=== PATIENT | female | born 1980 | race Caucasian/White ===

== ENCOUNTER 2016-09-30 20:50 | Inpatient (IN) | payer BC ==
[~2016-09-30] VITALS: Ht 157.5 cm; Wt 57.3 kg
[~2016-09-30 20:50] MED LIST: GLIP10TA10 PO; PROM25TA16 PO; PRT/40 PO; TRAM-10 PO
[2016-09-30] MEDS ORDERED: NAPR1TAB9 PO (21:33)
[2016-09-30] MEDS ORDERED: ONDANSETRON INJ 2 MG/ML 2 ML VIAL IV STA (22:04)
[2016-09-30] MEDS ORDERED: HYDROmorphone INJ 1 MG/ML SYR IV STA ×2 (22:04→23:35)
[2016-09-30] MEDS ORDERED: SODIUM CHLORIDE 0.9% 1000ML 1,000 ML IV STA (22:04)
[2016-09-30 22:34] LABS: BASO % 0.2 %; BASO ABS # 0.03 K/uL (0-0.2); COMPLETE YES; IG% 0.2 %; LYMPH % 14.9 %; LYMPH ABS # 2.48 K/uL (1.2-3.4); MEAN CELL VOLUME 93.9 fL (80-100); MEAN CORPUSCULAR HGB CONC 37.3 g/dl (32-36); MEAN PLATELET VOLUME 10.2 fL (7.4-10.4); MONO % 6.8 %; NEUT % 76.9 %; PLATELET COUNT 268 K/uL (130-400); RED BLOOD COUNT 5.11 M/uL (4.2-5.4); WHITE BLOOD COUNT 16.67 K/uL (4.8-10.8)
[2016-09-30 22:46] LABS: URINE APPEARANCE CLOUDY (CLEAR); URINE BILIRUBIN NEG (NEG); URINE COLOR YELLOW; URINE EPITHELIAL CELL AUTO >30 /lpf (0-5); URINE NITRITE NEG (NEG); URINE PH 6.5 (4.5-7.5); URINE SPECIFIC GRAVITY 1.044 (1.000-1.030); UROBILINOGEN NEG (NEG); ZZUR CULT IF INDIC CLEAN CATCH YES
[2016-09-30 22:48] LABS: MANUAL MICROSCOPIC REQUIRED? NO; REVIEW REQ? NO
[2016-09-30 22:52] LABS: BUN/CREATININE RATIO 27.5 (10-20); CALCIUM 10.3 mg/dl (8.5-10.1); CREATININE 0.6 mg/dl (0.60-1.20)
[2016-09-30] MEDS ORDERED: PROCHLORPERAZINE INJ 5 MG in SYRINGE 4 ML IV PRN (23:45)
[2016-09-30] MEDS ORDERED: ZOLPIDEM TARTRATE 5 MG TAB PO PRN ×2 (23:45)
[2016-09-30] MEDS ORDERED: HYDROmorphone INJ 0.5 MG/0.5 ML SYR IV PRN ×2 (23:45)
[2016-09-30] MEDS: ENOXAPARIN 40 MG/0.4 ML SYR SQ SCH (23:45)
--- NOTE | 2016-10-01 00:43 | History and Physical ---
History & Physical Date & Time of Service: Oct 01, 2016 at 00:40 Chief Complaint: Acute Pancreatitis Primary Care Physician: Aram Eilse M.D. History of Present Illness Source: patient Rosario is a 36 yo F with history of recurrent / chronic pancreatitis who presents with 3 days of epigastric pain and intractable nausea and vomiting. She reports she has had about 5-6 episodes over the last 2-3 years, and had her gallbladder removed, lost about 100lbs through diet and exercise, and does not drink alcohol. Essentially no cause has been found. She usually tolerates staying at home with oxycodone and Tylenol, but was unable to keep anything down, so came into the ED. She still has persistent pain despite dilaudid in the ED. Past Medical/Surgical History Medical Problems: (1) Abdominal pain Status: Resolved (2) Abscess of groin, left Status: Resolved (3) Acute abdominal pain Status: Resolved (4) Acute abdominal pain Status: Resolved (5) Acute diverticulitis Status: Resolved (6) Acute pancreatitis Status: Resolved (7) Attn Defic Nonhyperact Status: Chronic (8) Bronchitis Status: Resolved (9) Cellulitis Status: Resolved (10) Dehydration Status: Resolved (11) Dehydration Status: Resolved (12) Diabetes Status: Chronic (13) Left lower quadrant pain Status: Resolved (14) MRSA Status: Chronic (15) Nausea, vomiting and diarrhea Status: Resolved (16) Nausea, vomiting, and diarrhea Status: Resolved (17) Pancreatitis Status: Resolved (18) Pancreatitis Status: Resolved (19) Pancreatitis Status: Resolved (20) Polycystic Ovaries Status: Chronic (21) RUQ abdominal pain Status: Resolved (22) Type 2 diabetes mellitus with hyperglycemia Status: Resolved (23) Type 2 diabetes mellitus with hyperglycemia Status: Resolved (24) Type 2 diabetes mellitus with hyperglycemia Status: Resolved Surgical Problems: (1) Cyst removal Status: Resolved (2) Hx laparoscopic cholecystectomy Status: Resolved (3) Tonsillectomy Status: Resolved Family History Diabetes mellitus Heart disease Social History Smoking Status: Current Every Day Smoker Drug Use: none Marital Status: Housing status: lives with family Occupational Status: employed Multi-Drug Resistant Organisms History of MDRO: Yes Type of MDRO: MRSA Allergies Coded Allergies: Penicillins (Verified Allergy, Severe, ANAPHYLAXIS, 05/01/16) Clindamycin (Verified Allergy, Mild, RASH, 05/01/16) Methylphenidate (Verified Adverse Reaction, Mild, NAUSEA, 05/01/16) Home Medications Scheduled Diphenhydramine Hcl (Benadryl Allergy), 75 MG PO HS Glipizide (Glipizide), 10 MG PO BID Metformin Hcl Er (Glucophage Er), 1,000 MG PO BID Pancrelipase (Lipase-Protease- (Creon 05978), 36,000 UNITS PO QID Scheduled PRN Naproxen (Aleve), 220 MG PO Q12 PRN for Pain Ondansetron (Ondansetron HCl), 8 MG PO TID PRN for Nausea or Vomiting Tramadol HCl (Tramadol HCl), 50-100 MG PO Q4H PRN for Pain Review of Systems See HPI for pertinent positives & negatives. A total of 10 systems reviewed and were otherwise negative. Physical Exam Vital Signs Date Time Temp Pulse Resp B/P Pulse Ox O2 Delivery O2 Flow Rate FiO2 09/30/16 23:50 78 18 140/95 98 Room Air 09/30/16 22:28 82 20 157/93 96 Room Air 09/30/16 21:00 37.2 95 18 120/84 96 Room Air General Appearance: WD/WN, + moderate distress, + thin Head: normocephalic, atraumatic Eyes: PERRL ENT: hearing grossly normal Neck: supple, no JVD Respiratory/Chest: lungs clear, normal breath sounds, no respiratory distress Cardiovascular: regular rate, rhythm, no murmur, normal peripheral pulses Abdomen/GI: soft, + tenderness (epigastrium), + guarding Back: no CVA tenderness, no muscle spasm Extremities/Musculoskelatal: no calf tenderness, no pedal edema Neurologic/Psych: alert, normal mood/affect, oriented x 3 Skin: no rash Diagnostics Laboratory Results Results Past 24 Hours Test 09/30/16 22:00 09/30/16 22:15 Range/Units Urine Color YELLOW Urine Appearance CLOUDY CLEAR Urine pH 6.5 4.5-7.5 Urine Specific [place] 1.044 1.000-1.030 Urine Protein TRACE NEG Urine Glucose (UA) 3+ NEG Urine Ketones 1+ NEG Urine Occult Blood NEG NEG Urine Nitrite NEG NEG Urine Bilirubin NEG NEG Urine Urobilinogen NEG NEG Urine Leukocyte Esterase NEG NEG Urine WBC (Auto) 10-30 0-5 /hpf Urine RBC (Auto) 0-4 0-4 /hpf Urine Hyaline Casts (Auto) 1-5 0-5 /lpf Urine Epithelial Cells (Auto) >30 0-5 /lpf Urine Bacteria (Auto) 3+ NEG Urine Test NEG NEG White Blood Count 16.67 4.8-10.8 K/uL Red Blood Count 5.11 4.2-5.4 M/uL Hemoglobin 17.9 12.0-16.0 g/dL Hematocrit 48.0 37-47 % Mean Corpuscular Volume 93.9 80-100 fL Mean Corpuscular Hemoglobin 35.0 25-34 pg Mean Corpuscular Hemoglobin Concent 37.3 32-36 g/dl Platelet Count 268 130-400 K/uL Mean Platelet Volume 10.2 7.4-10.4 fL Neutrophils (%) (Auto) 76.9 % Lymphocytes (%) (Auto) 14.9 % Monocytes (%) (Auto) 6.8 % Eosinophils (%) (Auto) 1.0 % Basophils (%) (Auto) 0.2 % Neutrophils # (Auto) 12.82 1.4-6.5 K/uL Lymphocytes # (Auto) 2.48 1.2-3.4 K/uL Monocytes # (Auto) 1.14 0.11-0.59 K/uL Eosinophils # (Auto) 0.16 0-0.5 K/uL Basophils # (Auto) 0.03 0-0.2 K/uL RDW Standard Deviation 41.2 36.4-46.3 fL RDW Coefficient of Variation 12.1 11.5-14.5 % Immature Granulocyte % (Auto) 0.2 % Immature Granulocyte # (Auto) 0.04 0.00-0.02 K/uL Sodium Level 133 136-145 mmol/L Potassium Level 4.0 3.5-5.1 mmol/L Chloride Level 94 98-107 mmol/L Carbon Dioxide Level 29 21-32 mmol/L Anion Gap 10.0 3-11 mmol/L Blood Urea Nitrogen 17 7-18 mg/dl Creatinine 0.60 0.60-1.20 mg/dl Est Creatinine Clear Calc Drug Dose 103.5 ml/min Estimated GFR () 136.9 Estimated GFR (Non- 118.1 BUN/Creatinine Ratio 27.5 10-20 Random Glucose 294 70-99 mg/dl Calcium Level 10.3 8.5-10.1 mg/dl Total Bilirubin 0.8 0.2-1 mg/dl Direct Bilirubin 0.2 0-0.2 mg/dl Aspartate Amino Transf (AST/SGOT) 110 15-37 U/L Alanine Aminotransferase (ALT/SGPT) 116 12-78 U/L Alkaline Phosphatase 214 45-117 U/L Total Protein 8.4 6.4-8.2 gm/dl Albumin 4.5 3.4-5.0 gm/dl Lipase 853 73-393 U/L Microbiology Results 09/30/16 Urine Culture, Received Pending Diagnostic Radiology US RUQ: Pancreas appears mildly atrophic and heterogeneous. This may represent the sequel of chronic pancreatitis. Gallbladder is surgically absent. Common bile measures 5 mm. Liver measures 16 cm in length without evidence of focal lesion. Right kidney measures 12.6 cm without hydronephrosis. Impression Assessment and Plan 36 yo F with acute on chronic pancreatitis - presenting with intractable nausea/ vomiting Pancreatitis - NPO except ice chips - IV fluid hydration - Dilaudid for pain at various levels - GI consult Nausea/vomiting - Zofran - IV fluids Elevated LFTs - Trend - Avoid hepatotoxic meds Level of Care Med/Surg VTE Prophylaxis VTE Risk Assessment Done? Y/N: Yes Risk Level: Low Resident Tracking Resident Involvement: Resident Care Provided Care Provided: [facility] Assessment and Plan Attending Addendum: I have physically seen and examined this patient, have directed their medical care, have supervised the medical residents activities, and agree with the H&P as noted above, with the following changes: The patient is awake, well-developed and adequately nourished, alert and oriented 3, normocephalic and atraumatic, sitting upright in Bed and in no acute distress. HEENT--PERRL, EOMI, mucous membranes and oropharynx dry. Neck--supple, no JVD or bruits, thyroid normal, trachea midline, no adenopathy. Heart--normal S1 and S2, no extra beats, no murmurs, rubs or gallops. Lungs--clear bilaterally but diminished, no respiratory distress, no accessory muscle use. Abdomen--normal bowel sounds and soft, epigastric and back pain, nondistended, no hernias or masses, no organomegaly. Extremities--no cyanosis, clubbing or edema. There are good distal pulses b/l. Dermatologic--normal skin turgor, normal color, warm and dry, no abnormal lymph nodes, no rash. Neurologic--cranial nerves II through XII grossly intact, motor and sensory examination normal. Rheumatologic--normal range of motion, nontender, muscles and joints. Psychiatric--normal affect. Assessment and Plan: Acute on chronic pancreatitis--hydrate with IV fluids. Pain control with Dilaudid IV when necessary, Zofran 4 mg IV every 6 hours when necessary, follow serial CBC with differential, chemistry profile and pancreatic enzymes. Hold Creon 36,000 units by mouth 4 times a day until taking by mouth. She reports having her triglycerides checked recently in the outpatient setting and was told they were okay. We'll consult gastroenterology. Diabetes mellitus--hold glipizide 10 mg by mouth twice a day and metformin ER 1000 mg by mouth twice a day. We'll check a hemoglobin A1c.
[2016-10-01] MEDS: SODIUM CHLORIDE 0.9% 1000ML 1,000 ML IV SCH ×5 (01:45→19:33)
[2016-10-01] MEDS: ONDANSETRON INJ 2 MG/ML 2 ML VIAL IV PRN ×2 (01:45→08:13)
[2016-10-01] MEDS: HYDROmorphone INJ 1 MG/ML SYR IV PRN ×7 (01:46→21:25)
--- NOTE | 2016-10-01 02:08 | EMERGENCY ROOM VISIT NOTE ---
History Report prepared by Azra: Reynaldo Dunham Under the Supervision of: Dr. Isaak Gtz D.O. First contact with patient: 21:48 Chief Complaint: ABDOMINAL PAIN Stated Complaint: ACUTE PANCREATITIS Nursing Triage Summary: pt reports hx of pancreatitis and has had a flare up for 3 days , now unable to keep water down, home meds not helping History of Present Illness The patient is a 36 year old female who presents to the Emergency Room with complaints of persistent abdominal pain beginning three days ago. She describes her pain as "it feels like someone is driving a screw through to my back". She has a history of pancreatitis and feels that his current pain is a flare up of pancreatitis. She states that she has had pancreatitis for about four years. The patient also has a history of diabetes. She has a history of a cholecystectomy. She notes that she has not had any alcohol in a few years. The patient also complains of a cough that is unchanged from baseline. She states that she has had some nausea and vomiting as well. She states that she has not been able to keep any food down. The patient states that she has taken 1 mg of Oxycodone and Aleve between 7 and 8 hours ago. She notes that she has had a yeast infection recently. Source of History: patient Onset: three days ago Position: abdomen Quality: other ("like someone is driving a screw through to my back") Timing: other (persistent) Associated Symptoms: + cough, + nausea, + vomiting Review of Systems See HPI for pertinent positives & negatives. A total of 10 systems reviewed and were otherwise negative. Past Medical & Surgical Medical Problems: (1) Abdominal pain (2) Abscess of groin, left (3) Acute abdominal pain (4) Acute abdominal pain (5) Acute diverticulitis (6) Acute on chronic pancreatitis (7) Acute pancreatitis (8) Attn Defic Nonhyperact (9) Bronchitis (10) Cellulitis (11) Dehydration (12) Dehydration (13) Diabetes (14) Intractable nausea and vomiting (15) Left lower quadrant pain (16) MRSA (17) Nausea, vomiting and diarrhea (18) Nausea, vomiting, and diarrhea (19) Pancreatitis (20) Pancreatitis (21) Pancreatitis (22) Polycystic Ovaries (23) RUQ abdominal pain (24) Type 2 diabetes mellitus with hyperglycemia (25) Type 2 diabetes mellitus with hyperglycemia (26) Type 2 diabetes mellitus with hyperglycemia Surgical Problems: (1) Cyst removal (2) Hx laparoscopic cholecystectomy (3) Tonsillectomy Family History Diabetes mellitus Heart disease Social History Smoking Status: Current Every Day Smoker Alcohol Use: none Drug Use: none Marital Status: Housing Status: lives with family Occupation Status: employed Current/Historical Medications Scheduled Diphenhydramine Hcl (Benadryl Allergy), 75 MG PO HS Glipizide (Glipizide), 10 MG PO BID Metformin Hcl Er (Glucophage Er), 1,000 MG PO BID Pancrelipase (Lipase-Protease- (Creon 21718), 36,000 UNITS PO QID Scheduled PRN Naproxen (Aleve), 220 MG PO Q12 PRN for Pain Ondansetron (Ondansetron HCl), 8 MG PO TID PRN for Nausea or Vomiting Tramadol HCl (Tramadol HCl), 50-100 MG PO Q4H PRN for Pain Allergies Coded Allergies: Penicillins (Verified Allergy, Severe, ANAPHYLAXIS, 05/01/16) Clindamycin (Verified Allergy, Mild, RASH, 05/01/16) Methylphenidate (Verified Adverse Reaction, Mild, NAUSEA, 05/01/16) Physical Exam Vital Signs Date Time Temp Pulse Resp B/P Pulse Ox O2 Delivery O2 Flow Rate FiO2 10/01/16 01:46 68 20 160/87 96 Room Air 09/30/16 23:50 78 18 140/95 98 Room Air 09/30/16 22:28 82 20 157/93 96 Room Air 09/30/16 21:00 37.2 95 18 120/84 96 Room Air Physical Exam GENERAL: Disheveled, mild distress, nontoxic EYE EXAM: normal conjunctiva OROPHARYNX: no exudate, no erythema, lips, buccal mucosa, and tongue normal and mucous membranes are moist NECK: supple, no nuchal rigidity, no adenopathy, non-tender LUNGS: Clear to auscultation. Normal chest wall mechanics HEART: no murmurs, S1 normal and S2 normal ABDOMEN: abdomen soft with minimal tenderness to the RUQ. Normo-active bowel sounds, no masses, no rebound or guarding. BACK: Back is symmetrical on inspection and there is no deformity, no midline tenderness, no CVA tenderness. SKIN: no rashes and no bruising UPPER EXTREMITIES: upper extremities are grossly normal. LOWER EXTREMITIES: No pitting edema. NEURO EXAM: Normal sensorium, cranial nerves II-XII grossly intact, normal speech, no gross weakness of arms, no gross weakness of legs. Medical Decision & Procedures ER Provider Diagnostic Interpretation: US results per statrad and my review. US RUQ: Pancreas appears mildly atrophic and heterogeneous. This may represent the sequel of chronic pancreatitis. Gallbladder is surgically absent. Common bile measures 5 mm. Liver measures 16 cm in length without evidence of focal lesion. Right kidney measures 12.6 cm without hydronephrosis. Laboratory Results 09/30/16 22:15 Red Blood Count 5.11, Mean Corpuscular Volume 93.9, Mean Corpuscular Hemoglobin 35.0, Mean Corpuscular Hemoglobin Concent 37.3, Mean Platelet Volume 10.2, Neutrophils (%) (Auto) 76.9, Lymphocytes (%) (Auto) 14.9, Monocytes (%) (Auto) 6.8, Eosinophils (%) (Auto) 1.0, Basophils (%) (Auto) 0.2, Neutrophils # (Auto) 12.82, Lymphocytes # (Auto) 2.48, Monocytes # (Auto) 1.14, Eosinophils # (Auto) 0.16, Basophils # (Auto) 0.03 09/30/16 22:15 Test 09/30/16 22:00 09/30/16 22:15 Urine Color YELLOW Urine Appearance CLOUDY (CLEAR) Urine pH 6.5 (4.5-7.5) Urine Specific [place] 1.044 (1.000-1.030) Urine Protein TRACE (NEG) Urine Glucose (UA) 3+ (NEG) Urine Ketones 1+ (NEG) Urine Occult Blood NEG (NEG) Urine Nitrite NEG (NEG) Urine Bilirubin NEG (NEG) Urine Urobilinogen NEG (NEG) Urine Leukocyte Esterase NEG (NEG) Urine WBC (Auto) 10-30 /hpf (0-5) Urine RBC (Auto) 0-4 /hpf (0-4) Urine Hyaline Casts (Auto) 1-5 /lpf (0-5) Urine Epithelial Cells (Auto) >30 /lpf (0-5) Urine Bacteria (Auto) 3+ (NEG) Urine Test NEG (NEG) White Blood Count 16.67 K/uL (4.8-10.8) Red Blood Count 5.11 M/uL (4.2-5.4) Hemoglobin 17.9 g/dL (12.0-16.0) Hematocrit 48.0 % (37-47) Mean Corpuscular Volume 93.9 fL (80-100) Mean Corpuscular Hemoglobin 35.0 pg (25-34) Mean Corpuscular Hemoglobin Concent 37.3 g/dl (32-36) Platelet Count 268 K/uL (130-400) Mean Platelet Volume 10.2 fL (7.4-10.4) Neutrophils (%) (Auto) 76.9 % Lymphocytes (%) (Auto) 14.9 % Monocytes (%) (Auto) 6.8 % Eosinophils (%) (Auto) 1.0 % Basophils (%) (Auto) 0.2 % Neutrophils # (Auto) 12.82 K/uL (1.4-6.5) Lymphocytes # (Auto) 2.48 K/uL (1.2-3.4) Monocytes # (Auto) 1.14 K/uL (0.11-0.59) Eosinophils # (Auto) 0.16 K/uL (0-0.5) Basophils # (Auto) 0.03 K/uL (0-0.2) RDW Standard Deviation 41.2 fL (36.4-46.3) RDW Coefficient of Variation 12.1 % (11.5-14.5) Immature Granulocyte % (Auto) 0.2 % Immature Granulocyte # (Auto) 0.04 K/uL (0.00-0.02) Anion Gap 10.0 mmol/L (3-11) Est Creatinine Clear Calc Drug Dose 103.5 ml/min Estimated GFR () 136.9 Estimated GFR (Non- 118.1 BUN/Creatinine Ratio 27.5 (10-20) Calcium Level 10.3 mg/dl (8.5-10.1) Total Bilirubin 0.8 mg/dl (0.2-1) Direct Bilirubin 0.2 mg/dl (0-0.2) Aspartate Amino Transf (AST/SGOT) 110 U/L (15-37) Alanine Aminotransferase (ALT/SGPT) 116 U/L (12-78) Alkaline Phosphatase 214 U/L (45-117) Total Protein 8.4 gm/dl (6.4-8.2) Albumin 4.5 gm/dl (3.4-5.0) Lipase 853 U/L (73-393) Laboratory results per my review. Medications Administered Medications (Trade) Dose Ordered Sig/Trino Route Start Time Stop Time Status Last Admin Dose Admin Sodium Chloride (Nss 1000ml) 1,000 ml @ 999 mls/hr Q1H1M STAT IV 09/30/16 22:04 09/30/16 23:04 DC 09/30/16 22:27 999 MLS/HR Ondansetron HCl (Zofran Inj) 4 mg NOW STAT IV 09/30/16 22:04 09/30/16 22:06 DC 09/30/16 22:27 4 MG Hydromorphone HCl (Dilaudid Inj) 1 mg NOW STAT IV 09/30/16 22:04 09/30/16 22:06 DC 09/30/16 22:27 1 MG Hydromorphone HCl (Dilaudid Inj) 1 mg NOW STAT IV 09/30/16 23:35 09/30/16 23:36 DC 09/30/16 23:42 1 MG Ondansetron HCl 4 mg 4 mg Q6H PRN IV 09/30/16 23:45 10/30/16 23:44 10/01/16 01:45 4 MG Sodium Chloride (Nss 1000ml) 1,000 ml @ 200 mls/hr Q5H IV 09/30/16 23:41 10/30/16 23:40 10/01/16 01:45 200 MLS/HR Hydromorphone HCl (Dilaudid Inj) 1 mg Q3H PRN IV 09/30/16 23:45 10/14/16 23:44 10/01/16 01:46 1 MG ED Course ED COURSE: Vital signs were reviewed and showed hypertension The patients medical record was reviewed The above diagnostic studies were performed and reviewed. ED treatments and interventions as stated above. 2157: The patient was evaluated in room C2B. A complete history and physical examination was performed. 4: Ordered Dilaudid Inj 1 mg IV, Zofran Inj 4 mg IV, Sodium Chloride 1000 ml @ 999 mls/hr IV. 5: The patient is complaining of more pain. Ordered Dilaudid Inj 1 mg IV. 2340: Upon reevaluation, the patient is resting comfortably. I discussed my findings with the patient and she understands and agrees with the treatment plan. Based on the patients age, coexisting illnesses, exam and lab findings the decision to treat as an inpatient was made. The patient remained stable while under my care. The patient will be evaluated for further management. Medical Decision Differential diagnoses includes but is not limited to gastritis, peptic ulcer disease, GERD, gallbladder disease, pancreatitis, small bowel obstruction, acute coronary syndrome, pericarditis, ischemic bowel, irritable bowel disease, irritable bowel syndrome, appendicitis, diverticulitis, malignancy, hernia, urinary tract infection, torsion, /ectopic , perforation, trauma, infectious. Patient is a 36-year-old female who presents the ER for persistent nausea vomiting for the past 3 days. She has been unable to keep any liquids down today. She has a history of chronic pancreatitis. Labs show a leukocytosis of 16,000 which is likely secondary to the vomiting. She is clearly dehydrated. BMP shows an elevation in the lipase of 850. There is a transaminitis 120. UA is unremarkable. Urine was negative. Patient was given a bolus normal saline. She is given 2 doses of IV Dilaudid. She did have improvement of her pain. Ultrasound of her pancreas was nondiagnostic. Based on her symptoms and labs that do feel this is consistent with pancreatitis. She denies drinking alcohol. Patient was in its internal medicine for acute pancreatitis. Consults Time Called: [phone] Consulting Physician: Dr. Garcia -[facility] Returned Call: [phone] I reviewed the patient's case with Dr. Garcia. She will evaluate the patient for further management. Impression Primary Impression: Pancreatitis Additional Impression: Transaminitis Scribe Attestation The scribe's documentation has been prepared under my direction and personally reviewed by me in its entirety. I confirm that the note above accurately reflects all work, treatment, procedures, and medical decision making performed by me. Departure Information Dispostion Being Evaluated By Hospitalist Referrals Aram Elise M.D. (PCP) Patient Instructions My [facility] Problem Qualifiers Primary Impression: Pancreatitis Chronicity: acute Pancreatitis type: unspecified pancreatitis type Acute pancreatitis complication: unspecified Qualified Codes: K85.90 - Acute pancreatitis without necrosis or infection, unspecified
[2016-10-01 03:12] VITALS: BP 164/55; PULSE 71; TEMP 36.5; Ht 157.5 cm; Wt 57.3 kg
[2016-10-01] MEDS ORDERED: PROMETHAZINE HCL INJ 25 MG in SODIUM CHLORIDE 0.9% 50ML 50 ML IV STA (04:57)
[2016-10-01] MEDS ORDERED: HYDROmorphone INJ 0.5 MG/0.5 ML SYR IV STA (04:57)
[2016-10-01 06:14] LABS: ALB/GLOB RATIO 1.1 (0.9-2); ALKALINE PHOSPHATASE 233 U/L (45-117); ALT/SGPT 150 U/L (12-78); AST/SGOT 222 U/L (15-37); BLOOD UREA NITROGEN 15 mg/dl (7-18); BUN/CREATININE RATIO 41.5 (10-20); CARBON DIOXIDE 28 mmol/L (21-32); CHLORIDE 99 mmol/L (98-107); CREATININE 0.37 mg/dl (0.60-1.20); GLUCOSE 222 mg/dl (70-99); POTASSIUM 4.1 mmol/L (3.5-5.1); SODIUM 137 mmol/L (136-145)
--- NOTE | 2016-10-01 07:18 | DIAGNOSTIC IMAGING REPORT ---
ULTRASOUND RIGHT UPPER QUADRANT ABDOMEN CLINICAL HISTORY: Epigastric abdominal pain. COMPARISON STUDY: Abdominal ultrasound dated 07/01/2016. Abdominal CT dated 01/08/2016. TECHNIQUE: Real-time, grayscale, and color flow sonography of the right upper quadrant of the abdomen was performed. Images are reviewed in the transverse and longitudinal planes. FINDINGS: Liver: The liver is normal in size and echotexture. There is mild central intrahepatic biliary ductal dilatation. The main portal vein is patent. Gallbladder: The gallbladder is surgically absent. The common bile duct measures up to 0.5 cm in diameter. Pancreas: Visualized portions of the pancreatic head and body appear slightly atrophic for age. No peripancreatic fluid is seen. The splenic vein is patent. Right kidney: Survey images of the right kidney demonstrate normal size and echotexture. There is no hydronephrosis. Ascites: None. IMPRESSION: 1. No acute sonographic abnormality is identified in the right upper quadrant noting status post cholecystectomy. 2. The pancreas appears mildly atrophic for age. Electronically signed by: Miller Adorno M.D. 10/01/2016 7:17 AM Dictated Date/Time: 10/01/2016 7:15 AM
[2016-10-01 08:00] VITALS: O2SAT 96
[2016-10-01 15:21] VITALS: BP 124/76; PULSE 70; TEMP 36.8; O2SAT 97
[2016-10-01 19:52] VITALS: BP 165/96; PULSE 74; TEMP 36.8; O2SAT 99
[2016-10-01 23:05] VITALS: BP 165/97; PULSE 75; TEMP 37.3; O2SAT 97
[2016-10-01] MEDS: ENOXAPARIN 40 MG/0.4 ML SYR SQ SCH (23:12)
[2016-10-02] MEDS: SODIUM CHLORIDE 0.9% 1000ML 1,000 ML IV SCH ×4 (00:32→15:17)
[2016-10-02] MEDS: HYDROmorphone INJ 1 MG/ML SYR IV PRN ×6 (00:33→15:16)
[2016-10-02 06:43] LABS: ALB/GLOB RATIO 0.9 (0.9-2); ALKALINE PHOSPHATASE 348 U/L (45-117); ALT/SGPT 131 U/L (12-78); AST/SGOT 154 U/L (15-37); BLOOD UREA NITROGEN 7 mg/dl (7-18); BUN/CREATININE RATIO 28.1 (10-20); CALCIUM 8.9 mg/dl (8.5-10.1); CARBON DIOXIDE 24 mmol/L (21-32); CHLORIDE 103 mmol/L (98-107); CREATININE 0.26 mg/dl (0.60-1.20); GLUCOSE 153 mg/dl (70-99); POTASSIUM 3.7 mmol/L (3.5-5.1); SODIUM 137 mmol/L (136-145)
[2016-10-02 07:55] VITALS: BP 161/98; PULSE 67; TEMP 36.9; O2SAT 98
--- NOTE | 2016-10-02 08:17 | Hospitalist Progress Note ---
Hospitalist Progress Note Date of Service Oct 02, 2016. Subjective PO Intake: tolerated oral intake pain still intense but improving. Relieved with current meds, however wears out in 2 hours, and pain med is every 3 last hour pain builds up again Objective Vital Signs Date Time Temp Pulse Resp B/P Pulse Ox O2 Delivery O2 Flow Rate FiO2 10/02/16 07:55 36.9 67 18 161/98 98 Room Air 10/02/16 00:00 Room Air 10/01/16 23:05 37.3 75 16 165/97 97 Room Air 10/01/16 19:52 36.8 74 16 165/96 99 Room Air 10/01/16 18:55 Room Air 10/01/16 15:21 36.8 70 16 124/76 97 Room Air Physical Exam General Appearance: no apparent distress Eyes: sclerae normal ENT: normal ENT inspection Respiratory/Chest: lungs clear Cardiovascular: regular rate, rhythm Abdomen: normal bowel sounds, + pertinent finding (abdomal tenderness) Extremities: normal range of motion Neurologic/Psychiatric: alert, normal mood/affect Laboratory Results Last 24 Hours Test 10/02/16 05:36 Sodium Level 137 mmol/L Potassium Level 3.7 mmol/L Chloride Level 103 mmol/L Carbon Dioxide Level 24 mmol/L Anion Gap 10.0 mmol/L Blood Urea Nitrogen 7 mg/dl Creatinine 0.26 mg/dl Est Creatinine Clear Calc Drug Dose 238.9 ml/min Estimated GFR () > 150.0 Estimated GFR (Non- > 150.0 BUN/Creatinine Ratio 28.1 Random Glucose 153 mg/dl Calcium Level 8.9 mg/dl Total Bilirubin 0.9 mg/dl Aspartate Amino Transf (AST/SGOT) 154 U/L Alanine Aminotransferase (ALT/SGPT) 131 U/L Alkaline Phosphatase 348 U/L Total Protein 6.6 gm/dl Albumin 3.2 gm/dl Globulin 3.4 gm/dl Albumin/Globulin Ratio 0.9 Lipase 176 U/L Assessment and Plan (1) Acute on chronic pancreatitis Assessment & Plan: continue present management clear liquids will be continued. Pain meds will be changed to q2 hours as needed to alleviated her pain more consistently. (2) Tobacco abuse counseling Assessment & Plan: discussed in detail the opportunity to give this up. (3) Type 2 diabetes mellitus with hyperglycemia (4) Dehydration Assessment & Plan: continue iv fluids Discharge planning: home
[2016-10-02] MEDS ORDERED: HYDROmorphone INJ 0.5 MG/0.5 ML SYR IV PRN (09:45)
[2016-10-02 15:46] VITALS: BP 179/99; PULSE 62; TEMP 36.7; O2SAT 96
--- NOTE | 2016-10-02 18:43 | Discharge Instructions ---
Discharge Instructions Date of Service Oct 02, 2016. Admission Reason for Admission: Acute On Chronic Pancreatitis,Intractible N/V Discharge Discharge Diagnosis / Problem: Acute pancreatitis not resolved patient left AMA Discharge Goals Goal(s): Learn about illness Activity Recommendations Activity Limitations: as noted below (Patient left AMA no medical advice was given risk of explained ) . Current Hospital Diet Patient's current hospital diet: Clear Liquid Diet Discharge Diet Recommended Diet: N/A (no recommendation since she left AMA) Pending Studies Studies pending at discharge: no Medical Emergencies . Who to Call and When: Medical Emergencies: If at any time you feel your situation is an emergency, please call 911 immediately. . Non-Emergent Contact Non-Emergency issues call your: Primary Care Provider . . "Provider Documentation" section prepared by Delvin Cummins. VTE Core Measure Inpt VTE Proph given/why not?: Enoxaparin (Lovenox)SQ
--- NOTE | 2016-10-02 20:08 | GASTROINTESTINAL CONSULTATION ---
DATE OF CONSULTATION: 10/01/2016 CHIEF COMPLAINT: Recurrent pancreatitis. HISTORY OF PRESENT ILLNESS: This is a 36-year-old white female, known to doctors Paige and Edith in the outpatient clinic for recurrent pancreatitis. The patient has a history of diabetes and recurrent attacks of pancreatitis which have been idiopathic. There is no family history of chronic pancreatitis. The patient denies alcoholic beverages and does not report any symptoms of poorly controlled lipids. The patient has intermittently had episodes of pain which she attributes to pancreatitis and generally treats these at home by changing her diet. However, this became more intense with nausea and vomiting and prompted an evaluation in the Emergency Room. The patient also reports a significant weight loss of 100 pounds mostly through a physical activity and dieting that helped. The patient uses pain medicines at home including oxycodone, but this was unable to control her symptoms. Actually Dilaudid was ineffective for her. She has had several hospitalizations over the past couple of years. PAST MEDICAL HISTORY: Significant for recurrent acute pancreatitis, bronchitis, cellulitis, left lower quadrant abdominal pain, nausea, vomiting, polycystic ovary disease, type 2 diabetes, laparoscopic cholecystectomy, tonsillectomy and a cyst removal. FAMILY HISTORY: Unremarkable and noncontributory, although there is a history of diabetes and heart disease in the family. SOCIAL HISTORY: The patient smokes tobacco products. She does not use alcoholic beverages. She is and employed. ALLERGIES: INCLUDE PENICILLIN, CLINDAMYCIN AND METHYLPHENIDATE. HOME MEDICATIONS: Include diphenhydramine, glipizide pancreas, enzyme replacement and metformin. She also uses at times naproxen, tramadol and ondansetron. REVIEW OF SYSTEMS: Otherwise, noncontributory based on a 14-point exam. The patient denies any significant diarrhea, constipation, odynophagia, dysphagia, hematemesis or coffee ground emesis. PHYSICAL EXAMINATION: GENERAL: Shows a well-developed female in mild abdominal distress, although this seems to be better controlled this evening with her pain medicines. The patient is awake, alert and oriented x3. The patient is sitting comfortably overall comfortably in bed. HEENT: The oral mucosa is moist. Sclerae are anicteric. HEART: Normal S1, S2. LUNGS: Clear to auscultation without rales, rhonchi or wheezes. ABDOMEN: Soft, mildly tender in the epigastrium with mild palpation. There is no rebound or guarding. I do not appreciate hepatosplenomegaly. There is no evidence for ascites or shifting dullness. EXTREMITIES: Without clubbing, cyanosis or edema. RECTAL: Deferred at this time. LABORATORY STUDIES: From admission; show positive for urinary glucose and ketones, but no evidence for blood. There are 10-30 white blood cells and bacteria. Urinary was negative. The patient does have an elevated white count of 16.7, hemoglobin 17.9, MCV 93 and platelets of 268,000. BUN and creatinine are 17 and 0.6. Total bilirubin is 0.8 and direct 0.2. AST 110, ALT 116, alkaline phosphatase 214. Albumin is 4.5 and lipase is 853. A right upper quadrant ultrasound shows atrophic and heterogeneous appearing pancreas. The gallbladder is absent. The common bile duct was 5 mm. Her most recent vital signs; the patient is afebrile at 36.8, pulse 74, blood pressure 165/96, 90% on room air and respirations of 16. There are multiple organisms in the urine. The patient showed elevation of AST in April, although these were normal in June. During this hospitalization they are again elevated, although not to the degree that they were in April. Her alkaline phosphatase is 233 with ALT of 150 and AST of 222 on 10/01/2016. Lipase is trending down from 853 down to 758. IMPRESSION: The patient provides a history that she had some diagnostic studies performed at [facility] and it is unclear if she has ever had an ERCP or endoscopic ultrasound. Her prior hospitalization was in April. At the present time, the patient would like to slowly advance her diet. We would recommend continuing to follow her liver panel to see if this is an ongoing upper trend as well as her pancreatic enzymes. I would like an opportunity to review our office records to see if there is evidence of what her prior outpatient workup may have been and perhaps obtaining any endoscopic workup that she believes was performed at [facility] would be helpful. She did have a liver MRI in March 2015; the MRI from March 2015 showed evidence of peripancreatic infiltrative change that were near completely resolved without any space occupying lesions and overall impression of continued improvement of the pancreas. It may be prudent to consider either inpatient or outpatient imaging with MRI of the pancreas and MRCP to exclude any filling defects that may be a potential source of recurrent pancreatitis. We will discuss with the patient further. In addition, the patient will return to GI clinic as an outpatient with Dr. Sharma for followup. All questions were answered.
--- NOTE | 2016-10-13 13:36 | DISCHARGE SUMMARY ---
Please see dictated H\T\P for full details. The patient is a 36-year-old with history of recurrent chronic pancreatitis who presented with 3-day history of epigastric pain, intractable nausea and vomiting who had been having 5-6 episodes over the past 2-3 years. Her gallbladder was removed, she lost 100 pounds through diet and exercise and does not drink alcohol. Ultrasound of the right upper quadrant showed pancreas appeared mildly atrophic and heterogeneous, which may represent a sequela of chronic pancreatitis, gallbladder is surgically absent, common bile duct measures 5 mm, liver measures 16 cm in length without evidence of focal lesion, right kidney measures 12.6 cm without hydronephrosis. She was brought in, made n.p.o. except for ice chips, IV hydration and Dilaudid for pain at various levels. GI consultation was placed with Zofran for nausea and vomiting. The gastroenterology consultation was performed by Dr. Ra Sunshine. Dr. Sunshine recommended slowly advancing her diet and trending her labs. He would like the opportunity to review records in his office as to prior workups and perhaps consideration of an endoscopic workup of which the patient completely was performed at [facility]. Consideration of MRCP was being contemplated. All questions were answered and the patient unfortunately decided to sign out against medical advice. The patient states that her Dilaudid was not being given as often as she would have liked and left prior to my being able to discuss her pain management with the patient. However, I had altered her Dilaudid from q. 3 to q. 2 hours when I saw her earlier in the day and it is unclear as to why she decided to sign out against medical advice. No instructions were given since she decided to leave against medical advice. Risk of was explained to the patient by the nursing staff.
[2017-01-15] MEDS ORDERED: PROM25TA9 PO (00:37)
[2017-03-06] MEDS ORDERED: PANC1200 PO (07:11)
[2017-03-06] MEDS ORDERED: METF500T5 PO (10:42)
[2017-03-06] MEDS ORDERED: DIPH25CA65 PO (10:42)
== END 2016-10-02 17:51 | disposition left against medical advice (07) | DRG 440 ==
LOC: ENRESERVDT → ENRESERVTM → C.EDB 20:52 → C.MED 23:46
PROVIDERS: ADMIT Hospitalist; ATTEND Hospitalist
DX: K85.90 Acute pancreatitis without necrosis or infection, unspecified (principal); K86.1 Other chronic pancreatitis; E11.65 Type 2 diabetes mellitus with hyperglycemia; E86.0 Dehydration; F17.200 Nicotine dependence, unspecified, uncomplicated; Z90.49 Acquired absence of other specified parts of digestive tract; Z86.14 Personal history of Methicillin resistant Staphylococcus aureus infection; Z79.84 Long term (current) use of oral hypoglycemic drugs; Z82.49 Family history of ischemic heart disease and other diseases of the circulatory system; Z83.3 Family history of diabetes mellitus

== ENCOUNTER 2016-10-02 23:45 | Emergency (ER) | payer BC ==
[~2016-10-02] VITALS: Ht 157.5 cm; Wt 58.2 kg
[~2016-10-02 23:45] MED LIST changes: +NAPR1TAB9 PO; -PROM25TA16 PO; -PRT/40 PO; -TRAM-10 PO
[2016-10-02 23:50] VITALS: Ht 157.5 cm; Wt 58.2 kg
[2016-10-03] MEDS ORDERED: ONDANSETRON INJ 2 MG/ML 2 ML VIAL IV STA (00:11)
[2016-10-03] MEDS ORDERED: SODIUM CHLORIDE 0.9% 1000ML 1,000 ML IV ONE ×2 (00:15→01:30)
[2016-10-03 00:43] LABS: BASO % 0.1 %; BASO ABS # 0.01 K/uL (0-0.2); COMPLETE YES; EOS % 0.9 %; HEMATOCRIT 43.7 % (37-47); IG% 0.2 %; LYMPH % 23.1 %; LYMPH ABS # 2.09 K/uL (1.2-3.4); MEAN CELL VOLUME 93.2 fL (80-100); MEAN CORPUSCULAR HEMOGLOBIN 34.1 pg (25-34); MEAN CORPUSCULAR HGB CONC 36.6 g/dl (32-36); MEAN PLATELET VOLUME 10.3 fL (7.4-10.4); MONO % 5.9 %; NEUT % 69.8 %; PLATELET COUNT 199 K/uL (130-400); RED BLOOD COUNT 4.69 M/uL (4.2-5.4); WHITE BLOOD COUNT 9.03 K/uL (4.8-10.8)
[2016-10-03 00:45] LABS: URINE APPEARANCE CLEAR (CLEAR); URINE BILIRUBIN NEG (NEG); URINE COLOR YELLOW; URINE EPITHELIAL CELL AUTO >30 /lpf (0-5); URINE NITRITE NEG (NEG); URINE SPECIFIC GRAVITY 1.021 (1.000-1.030); UROBILINOGEN NEG (NEG); ZZUR CULT IF INDIC CLEAN CATCH YES
[2016-10-03 00:47] LABS: MANUAL MICROSCOPIC REQUIRED? NO; REVIEW REQ? NO
[2016-10-03 01:04] LABS: ALT/SGPT 155 U/L (12-78); AMYLASE 36 U/L (25-115); BENZODIAZEPINE, URINE NEG (NEG); BLOOD UREA NITROGEN 7 mg/dl (7-18); BUN/CREATININE RATIO 16.7 (10-20); CALCIUM 9.5 mg/dl (8.5-10.1); CARBON DIOXIDE 21 mmol/L (21-32); CHLORIDE 100 mmol/L (98-107); COCAINE,URINE NEG (NEG); CREATININE 0.39 mg/dl (0.60-1.20); GLUCOSE 171 mg/dl (70-99); PHENCYCLIDINE, URINE NEG (NEG); POTASSIUM 3.4 mmol/L (3.5-5.1); SODIUM 134 mmol/L (136-145)
[2016-10-03 01:07] LABS: ALB/GLOB RATIO 0.9 (0.9-2); ALKALINE PHOSPHATASE 371 U/L (45-117); AST/SGOT 97 U/L (15-37)
[2016-10-03] MEDS ORDERED: KETOROLAC TROMETHAMINE 30 MG/ML VIAL IV STA (01:17)
[2016-10-03 02:02] VITALS: BP 142/80; PULSE 63; TEMP 36.9; O2SAT 100
--- NOTE | 2016-10-03 05:12 | EMERGENCY ROOM VISIT NOTE ---
History First contact with patient: 23:57 Chief Complaint: ABDOMINAL PAIN Stated Complaint: PANCREATITIS Nursing Triage Summary: Pt was here in ER last Thursday for pancreatitis and left AMA from upstairs around 6pm today. Pt reports increasing pain and nausea since leaving. History of Present Illness The patient is a 36 year old female who presents to the Emergency Room with complaints of epigastric abdominal pain for the past several days. The patient was initially seen and evaluated in this emergency department 2 days ago where she was diagnosed with acute pancreatitis. The patient was admitted to the facility for care, and she elected to leave AMA 6 hours ago. The patient reportedly went to her primary care physician after leaving to obtain pain medication. The patient was referred back to the ER because of her symptoms. The patient states that she was not happy with her pain medication regimen while an inpatient. They were not "giving me my normal medications", specifically she wanted Dilaudid every 2 hours, and she was only getting this every 3 hours. The patient states that she got angry because she was in pain and decided to leave. The patient has a history of chronic pancreatitis of unknown etiology. She rates her current pain a 10/10. She is nauseated without vomiting. Review of Systems More than 10 systems were reviewed and otherwise negative with the exception of history of present illness. Past Medical/Surgical History Medical Problems: (1) Abdominal pain (2) Abscess of groin, left (3) Acute abdominal pain (4) Acute abdominal pain (5) Acute diverticulitis (6) Acute on chronic pancreatitis (7) Acute pancreatitis (8) Attn Defic Nonhyperact (9) Bronchitis (10) Cellulitis (11) Dehydration (12) Dehydration (13) Diabetes (14) Intractable nausea and vomiting (15) Left lower quadrant pain (16) MRSA (17) Nausea, vomiting and diarrhea (18) Nausea, vomiting, and diarrhea (19) Pancreatitis (20) Pancreatitis (21) Pancreatitis (22) Polycystic Ovaries (23) RUQ abdominal pain (24) Tobacco abuse counseling (25) Type 2 diabetes mellitus with hyperglycemia (26) Type 2 diabetes mellitus with hyperglycemia (27) Type 2 diabetes mellitus with hyperglycemia Surgical Problems: (1) Cyst removal (2) Hx laparoscopic cholecystectomy (3) Tonsillectomy Family History Diabetes mellitus Heart disease Social History Smoking Status: Current Every Day Smoker Alcohol Use: none Drug Use: none Marital Status: Housing Status: lives with family Occupation Status: employed Current/Historical Medications Scheduled Diphenhydramine Hcl (Benadryl Allergy), 75 MG PO HS Glipizide (Glipizide), 10 MG PO BID Metformin Hcl Er (Glucophage Er), 1,000 MG PO BID Pancrelipase (Lipase-Protease- ([id number] [id number]), 36,000 UNITS PO QID Scheduled PRN Naproxen (Aleve), 220 MG PO Q12 PRN for Pain Ondansetron (Ondansetron HCl), 8 MG PO TID PRN for Nausea or Vomiting Promethazine Hcl (Phenergan), 25 MG PO Q6H PRN for Nausea Tramadol HCl (Tramadol HCl), 50-100 MG PO Q4H PRN for Pain Allergies Coded Allergies: Penicillins (Verified Allergy, Severe, ANAPHYLAXIS, 05/01/16) Clindamycin (Verified Allergy, Mild, RASH, 05/01/16) Methylphenidate (Verified Adverse Reaction, Mild, NAUSEA, 05/01/16) Physical Exam Vital Signs Date Time Temp Pulse Resp B/P Pulse Ox O2 Delivery O2 Flow Rate FiO2 10/03/16 02:02 36.9 63 18 142/80 100 10/03/16 02:00 63 18 142/80 100 Room Air 10/03/16 01:06 71 18 158/88 99 Room Air 10/02/16 23:50 36.9 95 20 171/104 97 Room Air Pain Rating (0-10): 2.0 Physical Exam VITALS: Vitals are noted on the nurse's note and reviewed by myself. Vital signs stable. GENERAL: Well-developed, well-nourished, white female, who is in no acute distress and resting comfortably. Patient is cooperative with the examination. HEAD: Normocephalic atraumatic. HEART: Regular rate and rhythm without murmurs gallops or rubs. LUNGS: Clear to auscultation bilaterally without wheezes, rales or rhonchi. No retractions or accessory muscle use. ABDOMEN: Positive normal bowel sounds x 4. Soft with mild epigastric abdominal tenderness on palpation. No rebound or guarding. No lower abdominal tenderness. MUSCULOSKELETAL: No muscle atrophy, erythema, or edema noted. Full range of motion without joint tenderness in all extremities. Medical Decision & Procedures Laboratory Results 10/03/16 00:25 Red Blood Count 4.69, Mean Corpuscular Volume 93.2, Mean Corpuscular Hemoglobin 34.1, Mean Corpuscular Hemoglobin Concent 36.6, Mean Platelet Volume 10.3, Neutrophils (%) (Auto) 69.8, Lymphocytes (%) (Auto) 23.1, Monocytes (%) (Auto) 5.9, Eosinophils (%) (Auto) 0.9, Basophils (%) (Auto) 0.1, Neutrophils # (Auto) 6.30, Lymphocytes # (Auto) 2.09, Monocytes # (Auto) 0.53, Eosinophils # (Auto) 0.08, Basophils # (Auto) 0.01 10/03/16 00:25 Test 10/03/16 00:25 White Blood Count 9.03 K/uL (4.8-10.8) Red Blood Count 4.69 M/uL (4.2-5.4) Hemoglobin 16.0 g/dL (12.0-16.0) Hematocrit 43.7 % (37-47) Mean Corpuscular Volume 93.2 fL (80-100) Mean Corpuscular Hemoglobin 34.1 pg (25-34) Mean Corpuscular Hemoglobin Concent 36.6 g/dl (32-36) Platelet Count 199 K/uL (130-400) Mean Platelet Volume 10.3 fL (7.4-10.4) Neutrophils (%) (Auto) 69.8 % Lymphocytes (%) (Auto) 23.1 % Monocytes (%) (Auto) 5.9 % Eosinophils (%) (Auto) 0.9 % Basophils (%) (Auto) 0.1 % Neutrophils # (Auto) 6.30 K/uL (1.4-6.5) Lymphocytes # (Auto) 2.09 K/uL (1.2-3.4) Monocytes # (Auto) 0.53 K/uL (0.11-0.59) Eosinophils # (Auto) 0.08 K/uL (0-0.5) Basophils # (Auto) 0.01 K/uL (0-0.2) RDW Standard Deviation 39.9 fL (36.4-46.3) RDW Coefficient of Variation 11.8 % (11.5-14.5) Immature Granulocyte % (Auto) 0.2 % Immature Granulocyte # (Auto) 0.02 K/uL (0.00-0.02) Urine Color YELLOW Urine Appearance CLEAR (CLEAR) Urine pH 5.0 (4.5-7.5) Urine Specific Cameron 1.021 (1.000-1.030) Urine Protein TRACE (NEG) Urine Glucose (UA) 3+ (NEG) Urine Ketones 4+ (NEG) Urine Occult Blood NEG (NEG) Urine Nitrite NEG (NEG) Urine Bilirubin NEG (NEG) Urine Urobilinogen NEG (NEG) Urine Leukocyte Esterase NEG (NEG) Urine WBC (Auto) 1-5 /hpf (0-5) Urine RBC (Auto) 0-4 /hpf (0-4) Urine Hyaline Casts (Auto) 1-5 /lpf (0-5) Urine Epithelial Cells (Auto) >30 /lpf (0-5) Urine Bacteria (Auto) 1+ (NEG) Anion Gap 13.0 mmol/L (3-11) Est Creatinine Clear Calc Drug Dose 159.3 ml/min Estimated GFR () > 150.0 Estimated GFR (Non- 136.1 BUN/Creatinine Ratio 16.7 (10-20) Calcium Level 9.5 mg/dl (8.5-10.1) Total Bilirubin 0.9 mg/dl (0.2-1) Aspartate Amino Transf (AST/SGOT) 97 U/L (15-37) Alanine Aminotransferase (ALT/SGPT) 155 U/L (12-78) Alkaline Phosphatase 371 U/L (45-117) Total Protein 8.2 gm/dl (6.4-8.2) Albumin 3.9 gm/dl (3.4-5.0) Globulin 4.3 gm/dl (2.5-4.0) Albumin/Globulin Ratio 0.9 (0.9-2) Amylase Level 36 U/L (25-115) Lipase 123 U/L (73-393) Urine Opiates Screen POS (NEG) Urine Methadone, Qualitative NEG (NEG) Urine Barbiturates NEG (NEG) Urine Phencyclidine (PCP) Level NEG (NEG) Ur Amphetamine/Methamphetamine NEG (NEG) MDMA (Ecstasy) Screen NEG (NEG) Urine Benzodiazepines Screen NEG (NEG) Urine Cocaine Metabolite NEG (NEG) Urine Marijuana (THC) POS (NEG) Medications Administered Medications (Trade) Dose Ordered Sig/Trino Route Start Time Stop Time Status Last Admin Dose Admin Sodium Chloride (Nss 1000ml) 1,000 ml @ 999 mls/hr Q1H1M ONCE IV 10/03/16 00:15 10/03/16 01:15 DC 10/03/16 00:26 999 MLS/HR Ondansetron HCl 4 mg 4 mg NOW STAT IV 10/03/16 00:11 10/03/16 00:13 DC 10/03/16 00:26 4 MG Sodium Chloride (Nss 1000ml) 1,000 ml @ 999 mls/hr Q1H1M ONCE IV 10/03/16 01:30 10/03/16 02:30 DC 10/03/16 01:20 999 MLS/HR Ketorolac Tromethamine (Toradol Inj) 30 mg NOW STAT IV 10/03/16 01:17 10/03/16 01:18 DC 10/03/16 01:20 30 MG ED Course Physical exam and history were performed. Nursing notes and EMR were reviewed. Patient appears to have a gastric abdominal pain and a history of pancreatitis. The patient left this facility roughly 6 hours ago AGAINST MEDICAL ADVICE. On examination she does have some mild tenderness but she does not appear toxic. IV access was established and labs were obtained. The patient was hydrated with normal saline. The patient's blood work is as above and was reviewed. She does not have a significantly elevated white blood cell count, anemia, bandemia, or gross electrolyte imbalance. Her amylase and lipase are within normal limits and do not appear to represent an acute pancreatitis. The patient's urine was with significant ketones, and she did require 2 L of normal saline. Additionally her drug of abuse screen was positive for marijuana. I discussed the case with my attending physician, Dr. Goodwin. The patient just left this facility after being dissatisfied with her IV narcotic treatment. She is requesting Dilaudid from me, and her presentation is highly concerning for drug-seeking. I did confront her regarding the marijuana in her urine, and she admitted to going home, smoking marijuana, and then coming to the ER. I do not feel comfortable providing her narcotics, and will give her IV Toradol. Overall the patient does appear stable for discharge home at this time. She is to contact her compensation adjuster in the morning for further care and management. She was otherwise invited back to the ER with a new, worsening, or concerning symptoms. The chart was completed utilizing Dragon Speech Voice Recognition Software. Grammatical errors, random word insertions, pronoun errors, and incomplete sentences are an occasional consequence of this system due to software limitations, ambient noise, and hardware issues. Any formal questions or concerns about the content, text, or information contained within the body of this dictation should be directly addressed to the provider for clarification. . Medical Decision Differential diagnosis: Etiologies such as appendicitis, diverticulitis, PUD, biliary pathology, UTI, pancreatitis, obstruction, mesenteric ischemia, aortic pathology, infections, inflammatory bowel disease, renal colic, as well as others were entertained. Impression Primary Impression: Abdominal pain Additional Impression: Marijuana use Departure Information Dispostion Home / Self-Care Condition GOOD Referrals No Doctor, Assigned (PCP) Aram Elise M.D. Forms Call Back Authorization, HOME CARE DOCUMENTATION FORM, IMPORTANT VISIT INFORMATION Patient Instructions My [facility] Additional Instructions You were seen and evaluated today on an emergency basis only. This is not a substitute for, or an effort to provide, complete comprehensive medical care. It is not possible to recognize and treat all injuries or illnesses in a single emergency department visit. For this reason it is recommended that you followup with your primary care physician and compensation adjuster by telephone tomorrow to arrange appropriate follow-up. We recommend a liquid only diet for the next 1-2 days. Avoid marijuana as this can exacerbate your symptoms. You are welcome to return to the emergency department anytime with new, worsening, or concerning symptoms. Problem Qualifiers
[2016-10-06 13:10] LABS: COD UR NEGATIVE NG/ML (CUTOFF=50); HYDROCOD UR NEGATIVE NG/ML (CUTOFF=50); HYDROMOR UR 215 NG/ML (CUTOFF=50); MORPHINE UR NEGATIVE NG/ML (CUTOFF=50); NORHYDROCODONE CONF UR NEGATIVE NG/ML (CUTOFF=50); OXYMORPH UR 490 NG/ML (CUTOFF=50)
[2017-01-15] MEDS ORDERED: PROM25TA9 PO (00:37)
[2017-03-06] MEDS ORDERED: PANC1200 PO (07:11)
[2017-03-06] MEDS ORDERED: DIPH25CA65 PO (10:42)
[2017-03-06] MEDS ORDERED: METF500T5 PO (10:42)
== END 2016-10-03 02:03 | disposition home or self-care (01) ==
LOC: C.EDB 23:46
DX: R10.13 Epigastric pain (principal); F12.90 Cannabis use, unspecified, uncomplicated; K86.1 Other chronic pancreatitis; F98.8 Other specified behavioral and emotional disorders with onset usually occurring in childhood and adolescence; E11.9 Type 2 diabetes mellitus without complications; F17.200 Nicotine dependence, unspecified, uncomplicated; Z83.3 Family history of diabetes mellitus

== ENCOUNTER 2017-01-15 20:16 | Emergency (ER) | payer BC ==
[~2017-01-15] VITALS: Ht 157.5 cm; Wt 49.8 kg
[~2017-01-15 20:16] MED LIST changes: +PROM25TA9 PO
[2017-01-15 20:20] VITALS: Ht 157.5 cm; Wt 49.8 kg
[2017-01-15 20:40] VITALS: O2SAT 98
--- NOTE | 2017-01-15 20:41 | EMERGENCY ROOM VISIT NOTE ---
History Report prepared by Azra: Andra Cervantes Under the Supervision of: Dr. Keanu Mcfarland M.D. First contact with patient: 20:25 Chief Complaint: ABDOMINAL PAIN Stated Complaint: SEVERE PANCREAS PAIN, NAUSEA, DEHYDRATION History of Present Illness The patient is a 36 year old female who presents to the Emergency Room with complaints of persistent diffuse abdominal pain that began several days ago. She currently rates her discomfort as an 8/10 in severity. The patient reports a history of pancreatitis. She states that her symptoms today feel similar to her symptoms she gets with pancreatitis. The patient states that her doctors have not figured out what the cause of her pancreatitis is. She denies any heavy alcohol use. The patient states that she attempts to catch her flare ups at early stages, but states that she could not get it under control this time. She reports nausea, vomiting, and dehydration today. The patient notes a history of a cholecystectomy. She states that she has lost over 100 pounds in the past two and a half years due to diet changes. Source of History: patient Onset: several days ago Position: abdomen (diffuse) Symptom Intensity: 8/10 Timing: other (persistent) Associated Symptoms: + nausea, + vomiting Note: Associated Symptoms: dehydration Review of Systems All systems have been listed, reviewed, and are negative other than those previously mentioned. Please see Additional Medical History Sheet. Past Medical & Surgical Medical Problems: (1) Abdominal pain (2) Abscess of groin, left (3) Acute abdominal pain (4) Acute abdominal pain (5) Acute diverticulitis (6) Acute on chronic pancreatitis (7) Acute pancreatitis (8) Attn Defic Nonhyperact (9) Bronchitis (10) Cellulitis (11) Dehydration (12) Dehydration (13) Diabetes (14) Intractable nausea and vomiting (15) Left lower quadrant pain (16) MRSA (17) Nausea, vomiting and diarrhea (18) Nausea, vomiting, and diarrhea (19) Pancreatitis (20) Pancreatitis (21) Pancreatitis (22) Polycystic Ovaries (23) RUQ abdominal pain (24) Tobacco abuse counseling (25) Type 2 diabetes mellitus with hyperglycemia (26) Type 2 diabetes mellitus with hyperglycemia (27) Type 2 diabetes mellitus with hyperglycemia Surgical Problems: (1) Cyst removal (2) Hx laparoscopic cholecystectomy (3) Tonsillectomy Family History Diabetes mellitus Heart disease Social History Smoking Status: Current Every Day Smoker Alcohol Use: none Drug Use: none Marital Status: Housing Status: lives with family Occupation Status: employed Current/Historical Medications Scheduled Metformin Hcl Er (Glucophage Er), 1,000 MG PO BID Ondasetron Odt (Zofran Odt), 4 MG SL Q4 Pancrelipase (Lipase-Protease- (Creon 24084), 36,000 UNITS PO QID Scheduled PRN Diphenhydramine Hcl (Benadryl Allergy), 75 MG PO HS PRN for Sleep Ondansetron (Ondansetron HCl), 8 MG PO TID PRN for Nausea or Vomiting Promethazine Hcl (Phenergan), 25 MG PO Q6H PRN for Nausea Tramadol HCl (Tramadol HCl), 50-100 MG PO Q4H PRN for Pain Allergies Coded Allergies: Penicillins (Verified Allergy, Severe, ANAPHYLAXIS, 01/15/17) Clindamycin (Verified Allergy, Mild, RASH, 01/15/17) Methylphenidate (Verified Adverse Reaction, Mild, NAUSEA, 01/15/17) Physical Exam Vital Signs Date Time Temp Pulse Resp B/P (MAP) Pulse Ox O2 Delivery O2 Flow Rate FiO2 01/15/17 23:47 95 20 140/96 100 Room Air 01/15/17 22:18 88 18 133/75 100 Room Air 01/15/17 20:40 98 Room Air 01/15/17 20:20 36.7 96 18 153/44 100 Room Air Physical Exam GENERAL: Patient awake, alert, oriented x 3. Patient appears to be in moderate distress. Patient follows commands. Patient does not appear toxic. Patient is adequately hydrated and well-nourished. SKIN: No erythema, pallor, cyanosis or rash HEENT: Normal head, pupils equal, reactive to light and accommodation. Ears normal. Oral cavity and posterior pharynx appear normal, dry mucous membranes. Neck: Without adenopathy, no neck vein distention. LUNGS: Clear to auscultation. No wheezes, no rales, no rhonchi. HEART: No murmurs. No gallops. No rubs ABDOMEN: Generalized upper abdominal tenderness, no masses. No masses, no rebound, no hepatomegaly or splenomegaly. EXTREMITIES: No signs of trauma. No pedal or pretibial edema. No calf or thigh tenderness. NEUROLOGIC: Cranial nerves II-XII within normal limits. No gross motor sensory function deficits. Medical Decision & Procedures ER Provider Diagnostic Interpretation: The Radiology results as stated below per my review and radiologist interpretation: BILIARY ULTRASOUND CLINICAL HISTORY: Pancreatitis severe abdominal pain. Nausea. Dehydration. COMPARISON STUDY: 09/30/2016 FINDINGS: The gallbladder is surgically absent. No pancreatic masses are visualized. There is no ductal dilatation. The common bile duct measures 6 mm. There is no right-sided hydronephrosis. There is a small echogenic focus within or adjacent to the common bile duct. No suspicious hepatic masses are visualized. IMPRESSION: 1. No pancreatic masses identified. No peripancreatic fluid collections identified 2. Surgically absent gallbladder 3. Possible 5 mm common bile duct calculus. 4. No evidence of ductal dilatation Electronically signed by: Issa Sebastian M.D. 01/15/2017 10:08 PM Dictated Date/Time: 01/15/2017 10:04 PM CHEST 2 VIEWS ROUTINE CLINICAL HISTORY: pancreatitis COUGH COMPARISON STUDY: 07/01/2016 FINDINGS: The cardiac and mediastinal contours are normal. There is no evidence of focal pulmonary consolidation. There is no evidence of failure. No pleural effusions are visualized.[ IMPRESSION: No active disease in the chest. Electronically signed by: Issa Sebastian M.D. 01/15/2017 9:43 PM Dictated Date/Time: 01/15/2017 9:43 PM Laboratory Results 01/15/17 21:10 Red Blood Count 5.25, Mean Corpuscular Volume 96.0, Mean Corpuscular Hemoglobin 32.4, Mean Corpuscular Hemoglobin Concent 33.7, Mean Platelet Volume 10.6, Neutrophils (%) (Auto) 77.1, Lymphocytes (%) (Auto) 18.9, Monocytes (%) (Auto) 3.1, Eosinophils (%) (Auto) 0.2, Basophils (%) (Auto) 0.2, Neutrophils # (Auto) 7.38, Lymphocytes # (Auto) 1.81, Monocytes # (Auto) 0.30, Eosinophils # (Auto) 0.02, Basophils # (Auto) 0.02 01/15/17 21:10 Test 01/15/17 20:42 01/15/17 21:10 Urine Color YELLOW Urine Appearance CLEAR (CLEAR) Urine pH 6.5 (4.5-7.5) Urine Specific [place] 1.016 (1.000-1.030) Urine Protein NEG (NEG) Urine Glucose (UA) NEG (NEG) Urine Ketones NEG (NEG) Urine Occult Blood NEG (NEG) Urine Nitrite NEG (NEG) Urine Bilirubin NEG (NEG) Urine Urobilinogen NEG (NEG) Urine Leukocyte Esterase NEG (NEG) White Blood Count 9.58 K/uL (4.8-10.8) Red Blood Count 5.25 M/uL (4.2-5.4) Hemoglobin 17.0 g/dL (12.0-16.0) Hematocrit 50.4 % (37-47) Mean Corpuscular Volume 96.0 fL (80-100) Mean Corpuscular Hemoglobin 32.4 pg (25-34) Mean Corpuscular Hemoglobin Concent 33.7 g/dl (32-36) Platelet Count 206 K/uL (130-400) Mean Platelet Volume 10.6 fL (7.4-10.4) Neutrophils (%) (Auto) 77.1 % Lymphocytes (%) (Auto) 18.9 % Monocytes (%) (Auto) 3.1 % Eosinophils (%) (Auto) 0.2 % Basophils (%) (Auto) 0.2 % Neutrophils # (Auto) 7.38 K/uL (1.4-6.5) Lymphocytes # (Auto) 1.81 K/uL (1.2-3.4) Monocytes # (Auto) 0.30 K/uL (0.11-0.59) Eosinophils # (Auto) 0.02 K/uL (0-0.5) Basophils # (Auto) 0.02 K/uL (0-0.2) RDW Standard Deviation 42.5 fL (36.4-46.3) RDW Coefficient of Variation 12.0 % (11.5-14.5) Immature Granulocyte % (Auto) 0.5 % Immature Granulocyte # (Auto) 0.05 K/uL (0.00-0.02) Anion Gap 20.0 mmol/L (3-11) Est Creatinine Clear Calc Drug Dose 104.6 ml/min Estimated GFR () 137.6 Estimated GFR (Non- 118.7 BUN/Creatinine Ratio 5.8 (10-20) Calcium Level 9.2 mg/dl (8.5-10.1) Total Bilirubin 0.5 mg/dl (0.2-1) Aspartate Amino Transf (AST/SGOT) 30 U/L (15-37) Alanine Aminotransferase (ALT/SGPT) 66 U/L (12-78) Alkaline Phosphatase 195 U/L (45-117) Troponin I < 0.015 ng/ml (0-0.045) Total Protein 7.9 gm/dl (6.4-8.2) Albumin 4.0 gm/dl (3.4-5.0) Globulin 3.9 gm/dl (2.5-4.0) Albumin/Globulin Ratio 1.0 (0.9-2) Lipase 193 U/L (73-393) Laboratory results as stated above per my review. Medications Administered Medications (Trade) Dose Ordered Sig/Trino Route Start Time Stop Time Status Last Admin Dose Admin Morphine Sulfate (MoRPHine SULFATE INJ) 6 mg Q1H PRN IV 01/15/17 20:45 01/29/17 20:44 01/15/17 23:52 6 MG Ondansetron HCl (Zofran Inj) 4 mg Q1HWA PRN IV 01/15/17 20:45 02/14/17 20:44 01/15/17 22:50 4 MG Sodium Chloride 2,000 ml @ 1,000 mls/hr Q2H ONCE IV 01/15/17 20:45 01/15/17 22:44 DC 01/15/17 21:15 1,000 MLS/HR ECG Indication: abdominal pain Rate (beats per minute): 85 Rhythm: sinus rhythm Findings: no acute ischemic change, no ectopy ED Course 2026: Past medical records reviewed. The patient was evaluated in room A11B. A complete history and physical examination was performed. 2044: Ordered Sodium Chloride 2000 ml @ 1000 mls/hr IV, Zofran Inj 4 mg IV, Morphine Sulfate 6 mg IV. 2326: I reevaluated the patient and she is starting to feel better. I discussed the exam findings with her. She is going to attempt to drink fluids. Medical Decision Nurses notes reviewed. Medical history sheet reviewed. Differential diagnosis includes but is not limited to: pancreatitis, acute gastroenteritis, dehydration , metabolic disorder. Multiple labs, urinalysis and imaging were obtained. Please see above. The patient's lipase is not elevated. Her white count is also not elevated. The patient's alkaline phosphatase is slightly elevated. She also has a questionable common bile duct stone. I am not sure whether this has anything to do with her current pain. The patient was felt to be dehydrated and was rehydrated with at least 2 L of IV fluids. The patient was able to drink prior to discharge. The patient was encouraged to continue pushing fluids at home. PDMP was evaluated. Patient was felt safe to receive a small prescription for Hydrocodone. Blood Pressure Screening: Patient was found to have a slightly elevated blood pressure due to circumstances. I do not believe that the patient requires hypertension monitoring. Medication Reconciliation: I attest that I have personally reviewed the patient' s current medication list. Impression Primary Impression: Dehydration Additional Impression: History of pancreatitis Scribe Attestation The scribe's documentation has been prepared under my direction and personally reviewed by me in its entirety. I confirm that the note above accurately reflects all work, treatment, procedures, and medical decision making performed by me. Departure Information Dispostion Home / Self-Care Prescriptions Ondasetron Odt (ZOFRAN ODT) 4 Mg Tab 4 MG SL Q4 for Nausea, #20 TAB Prov: Keanu Mcfarland M.D. 01/15/17 Referrals Aram Elise M.D. (PCP) Forms Call Back Authorization, HOME CARE DOCUMENTATION FORM, IMPORTANT VISIT INFORMATION Patient Instructions My [facility] [place] [email or web address] Additional Instructions Drink at least 3-4 quarts of liquid over the next 24 hours. Slowly advance your diet. 1 Zofran every 4 hours as needed for nausea. Return here if you're unable to hold down liquids. Problem Qualifiers
[2017-01-15] MEDS ORDERED: SODIUM CHLORIDE 0.9% 1000ML 2,000 ML IV ONE (20:45)
[2017-01-15] MEDS: ONDANSETRON INJ 2 MG/ML 2 ML VIAL IV PRN ×2 (21:16→22:50)
[2017-01-15] MEDS: MoRPHine SULFATE 10 MG/ML CARP/VIAL IV PRN ×3 (21:17→23:52)
[2017-01-15 21:18] LABS: URINE APPEARANCE CLEAR (CLEAR); URINE BILIRUBIN NEG (NEG); URINE COLOR YELLOW; URINE NITRITE NEG (NEG); URINE PH 6.5 (4.5-7.5); URINE SPECIFIC GRAVITY 1.016 (1.000-1.030); UROBILINOGEN NEG (NEG); ZZUR CULT IF INDIC CLEAN CATCH NO
[2017-01-15 21:23] LABS: MANUAL MICROSCOPIC REQUIRED? NO; REVIEW REQ? NO
[2017-01-15 21:26] LABS: BASO % 0.2 %; BASO ABS # 0.02 K/uL (0-0.2); COMPLETE YES; EOS % 0.2 %; HEMATOCRIT 50.4 % (37-47); IG% 0.5 %; LYMPH % 18.9 %; LYMPH ABS # 1.81 K/uL (1.2-3.4); MEAN CORPUSCULAR HEMOGLOBIN 32.4 pg (25-34); MEAN CORPUSCULAR HGB CONC 33.7 g/dl (32-36); MEAN PLATELET VOLUME 10.6 fL (7.4-10.4); MONO % 3.1 %; NEUT % 77.1 %; PLATELET COUNT 206 K/uL (130-400); RED BLOOD COUNT 5.25 M/uL (4.2-5.4); WHITE BLOOD COUNT 9.58 K/uL (4.8-10.8)
[2017-01-15 21:45] LABS: ALT/SGPT 66 U/L (12-78); BLOOD UREA NITROGEN 3 mg/dl (7-18); BUN/CREATININE RATIO 5.8 (10-20); CALCIUM 9.2 mg/dl (8.5-10.1); CARBON DIOXIDE 12 mmol/L (21-32); CHLORIDE 100 mmol/L (98-107); CREATININE 0.59 mg/dl (0.60-1.20); GLUCOSE 228 mg/dl (70-99); POTASSIUM 4.6 mmol/L (3.5-5.1); SODIUM 132 mmol/L (136-145)
--- NOTE | 2017-01-15 21:45 | DIAGNOSTIC IMAGING REPORT ---
CHEST 2 VIEWS ROUTINE CLINICAL HISTORY: pancreatitis COUGH COMPARISON STUDY: 07/01/2016 FINDINGS: The cardiac and mediastinal contours are normal. There is no evidence of focal pulmonary consolidation. There is no evidence of failure. No pleural effusions are visualized.[ IMPRESSION: No active disease in the chest. Electronically signed by: Issa Sebastian M.D. 01/15/2017 9:43 PM Dictated Date/Time: 01/15/2017 9:43 PM
[2017-01-15 21:50] LABS: ALKALINE PHOSPHATASE 195 U/L (45-117); AST/SGOT 30 U/L (15-37)
--- NOTE | 2017-01-15 22:09 | DIAGNOSTIC IMAGING REPORT ---
BILIARY ULTRASOUND CLINICAL HISTORY: Pancreatitis severe abdominal pain. Nausea. Dehydration. COMPARISON STUDY: 09/30/2016 FINDINGS: The gallbladder is surgically absent. No pancreatic masses are visualized. There is no ductal dilatation. The common bile duct measures 6 mm. There is no right-sided hydronephrosis. There is a small echogenic focus within or adjacent to the common bile duct. No suspicious hepatic masses are visualized. IMPRESSION: 1. No pancreatic masses identified. No peripancreatic fluid collections identified 2. Surgically absent gallbladder 3. Possible 5 mm common bile duct calculus. 4. No evidence of ductal dilatation Electronically signed by: Issa Sebastian M.D. 01/15/2017 10:08 PM Dictated Date/Time: 01/15/2017 10:04 PM
[2017-01-15] MEDS ORDERED: ONDANSETRON INJ 2 MG/ML 2 ML VIAL IV STA (22:48)
[2017-01-15] MEDS ORDERED: ONDA4TAB10 SL (23:40)
[2017-01-16] MEDS ORDERED: NORCO 5/325MG HOME PACK PO ONE
[2017-01-16 00:40] VITALS: BP 120/78; PULSE 88; TEMP 36.7; O2SAT 100
--- NOTE | 2017-01-16 15:06 | Pharmacy Progress Note ---
ED Pharmacist Progress Note Date of Service: Jan 16, 2017. Received call from outpatient physician office wanting to clarify Douglas that was provided to patient at ED visit. Provided the following information: Douglas 5/325 mg tab (homepack) Dispense #4 Sig: take 1-2 tablets by mouth every 4 hours as needed
[2017-03-06] MEDS ORDERED: PANC1200 PO (07:11)
[2017-03-06] MEDS ORDERED: DIPH25CA65 PO (10:42)
[2017-03-06] MEDS ORDERED: METF500T5 PO (10:42)
== END 2017-01-16 00:41 | disposition home or self-care (01) ==
LOC: C.EDB 20:17 → C.EDA 01-16 00:41
DX: E86.0 Dehydration (principal); K86.1 Other chronic pancreatitis; Z90.49 Acquired absence of other specified parts of digestive tract; F17.210 Nicotine dependence, cigarettes, uncomplicated; Z83.3 Family history of diabetes mellitus; F90.9 Attention-deficit hyperactivity disorder, unspecified type; E11.9 Type 2 diabetes mellitus without complications; Z79.899 Other long term (current) drug therapy

== ENCOUNTER 2017-01-16 20:13 | Inpatient (IN) | payer BC ==
[~2017-01-16] VITALS: Ht 157.5 cm; Wt 50.3 kg
[~2017-01-16 20:13] MED LIST changes: -GLIP10TA10 PO; -NAPR1TAB9 PO; +ONDA4TAB10 SL
[2017-01-16] MEDS ORDERED: SODIUM CHLORIDE 0.9% 1000ML 1,000 ML IV STA ×2 (21:09→23:09)
[2017-01-16] MEDS ORDERED: ONDANSETRON INJ 2 MG/ML 2 ML VIAL IV STA (21:09)
[2017-01-16] MEDS ORDERED: MoRPHine SULFATE 4 MG/ML 1 ML CARP\\VIAL IV STA ×2 (21:09→22:21)
[2017-01-16 21:23] LABS: PREG INTERNAL NEGATIVE QC NEG CLEAR BACKGROUND; PREG INTERNAL POSITIVE QC POS CONTROL LINE
[2017-01-16 21:24] LABS: URINE APPEARANCE CLEAR (CLEAR); URINE BILIRUBIN NEG (NEG); URINE COLOR YELLOW; URINE NITRITE NEG (NEG); URINE PH 6.5 (4.5-7.5); URINE SPECIFIC GRAVITY 1.016 (1.000-1.030); UROBILINOGEN NEG (NEG)
[2017-01-16 21:33] LABS: MANUAL MICROSCOPIC REQUIRED? NO; REVIEW REQ? NO
[2017-01-16 21:56] LABS: HEMATOCRIT 49.7 % (37-47); MEAN CELL VOLUME 99.8 fL (80-100); MEAN CORPUSCULAR HEMOGLOBIN 35.3 pg (25-34); MEAN CORPUSCULAR HGB CONC 35.4 g/dl (32-36); MEAN PLATELET VOLUME 10.6 fL (7.4-10.4); PLATELET COUNT 268 K/uL (130-400); RED BLOOD COUNT 4.98 M/uL (4.2-5.4); WHITE BLOOD COUNT 33.22 K/uL (4.8-10.8)
[2017-01-16 22:06] LABS: CALCIUM 9.3 mg/dl (8.5-10.1); POTASSIUM 5.8 mmol/L (3.5-5.1)
[2017-01-16 22:08] LABS: BUN/CREATININE RATIO 11.1 (10-20); CREATININE 0.98 mg/dl (0.60-1.20)
[2017-01-16 22:14] LABS: BASO % 0.1 %; BASO ABS # 0.03 K/uL (0-0.2); COMPLETE YES; EOS % 0.1 %; IG% 0.5 %; LYMPH % 3.2 %; LYMPH ABS # 1.06 K/uL (1.2-3.4); NEUT % 89.1 %
[2017-01-16] MEDS ORDERED: NovoLIN-R INSULIN PER UNIT CHARGE IV STA (22:16)
[2017-01-16 22:43] LABS: BETA-HYDROXYBUTYRATE 130.65 mg/dL (0.2-2.81)
--- NOTE | 2017-01-16 22:43 | DIAGNOSTIC IMAGING REPORT ---
SINGLE VIEW CHEST CLINICAL HISTORY: Fever. FINDINGS: An AP, portable, upright chest radiograph is compared to study dated 01/15/2017. The examination is degraded by portable technique and patient rotation. The cardiomediastinal silhouette is unremarkable. Minimal atelectasis is seen at the left lung base. The lungs and pleural spaces are otherwise clear. No pneumothorax is seen. The bony thorax is grossly intact. Cholecystectomy clips are identified in the right upper quadrant. IMPRESSION: No active disease in the chest. Electronically signed by: Miller Adorno M.D. 01/16/2017 10:42 PM Dictated Date/Time: 01/16/2017 10:40 PM
[2017-01-16 22:49] LABS: VEN BLD GAS O2 SATURATION < 60.0 %; VEN BLOOD GAS BASE EXCESS -24.9 mmol/L; VENOUS BLOOD GAS PCO2 25 mmHg (38.0-50.0); VENOUS BLOOD GAS PO2 26 mmHg
[2017-01-16] MEDS ORDERED: DKA GOAL RANGE 150-250 mg/dl 1 EA ONE (23:00)
--- NOTE | 2017-01-16 23:13 | DIAGNOSTIC IMAGING REPORT ---
CT SCAN OF THE ABDOMEN AND PELVIS WITHOUT IV CONTRAST CLINICAL HISTORY: Generalized abdominal pain. COMPARISON STUDY: Abdominal CT dated 01/08/2016. TECHNIQUE: CT scan of the abdomen and pelvis is performed from the lung bases to the proximal femora. Images are reviewed in the axial, sagittal, and coronal planes. IV contrast was not administered for this examination as per the referring clinician. Note that the examination was performed in significantly suboptimal fashion without oral and IV contrast. The examination is also degraded by motion artifact. Automated dose control exposure was utilized. CT DOSE: 435.25 mGy.cm FINDINGS: Lung bases: The heart is normal in size and without pericardial effusion. Patchy groundglass opacities are seen within a subpleural distribution at both lung bases. No pleural effusion is identified. Liver: The unenhanced liver is normal in size, contour, and attenuation. There is no intrahepatic biliary ductal dilatation. Gallbladder: Surgically absent noting clips in the gallbladder fossa. Spleen: Normal in size and attenuation. Pancreas: Atrophic for age and grossly unremarkable. Adrenal glands: Unremarkable. Kidneys: The unenhanced kidneys are normal in size and without hydronephrosis. There are no renal calculi identified. There is no evidence of contour deforming renal mass lesion. Abdominal vasculature: The abdominal aorta is normal in course and caliber noting scattered foci of atherosclerotic calcification. Stomach and bowel: The stomach is distended and fluid-filled. The duodenum is normal in configuration and the small bowel loops are normal in caliber. The appendix is normal as visualized. Peritoneum: There is no intraperitoneal free air or abdominal ascites. Lymphadenopathy: None. Pelvic viscera: The bladder is markedly distended but otherwise normal in appearance. The uterus and adnexa are within normal limits. Skeletal structures: No lytic or blastic lesions are seen. IMPRESSION: 1. Significantly suboptimal examination without oral and IV contrast. The examination is also significantly motion compromised which degrades interpretation. 2. There are subpleural and wedge shaped groundglass opacities present at both lung bases. These are nonspecific and could represent an infectious/inflammatory pneumonitis. The appearance is atypical, and this could also be seen in the setting of pulmonary emboli with pulmonary infarcts. Consider correlation with a CT angiogram of the chest for further assessment. 3. The bladder is markedly distended but otherwise normal in appearance. 4. The stomach is distended and fluid-filled. The small bowel loops and colon are normal in caliber, with no evidence of small bowel obstruction. This is of indeterminate significance, and could be seen if there is some degree of gastric outlet obstruction. Clinical correlation will be essential. 5. The pancreas is atrophic and normal as visualized. 6. Additional findings as above. Electronically signed by: Miller Adorno M.D. 01/16/2017 11:12 PM Dictated Date/Time: 01/16/2017 11:04 PM
[2017-01-16] MEDS ORDERED: OPTIRAY 320 IV PRN (23:30)
[2017-01-16] MEDS ORDERED: LEVAQUIN 750MG / 150ML D5W IV ONE (23:45)
[2017-01-16] MEDS ORDERED: INSULIN IV INFUSION PROTOCOL STA (23:59)
[2017-01-17] VITALS (27 sets, daily range): BP systolic 102–132; BP diastolic 62–96; PULSE 85–105; TEMP 36.4–37.6; O2SAT 94–100; BMI 20.2
[2017-01-17] MEDS ORDERED: DKA GOAL RANGE 150-250 mg/dl 1 EA ONE
[2017-01-17] MEDS ORDERED: PHARMACY GLYCEMIC MGMT CONSULT PRN
[2017-01-17] MEDS ORDERED: DC ALL PREVIOUSLY ORDERED DIABETES MEDS ONE
[2017-01-17] MEDS ORDERED: D5NSS + 20MEQ KCL 1,000 ML IV SCH (00:15)
[2017-01-17] MEDS ORDERED: DEXTROSE 50% 50 ML SYR IV PRN (00:15)
[2017-01-17] MEDS ORDERED: NSS + 20MEQ KCL 1000ML 1,000 ML IV SCH (00:15)
[2017-01-17] MEDS ORDERED: GLUCAGON FOR INJ 1 MG VIAL SQ PRN (00:15)
[2017-01-17] MEDS ORDERED: INSULIN HUMAN REGULAR IV BOLUS 2 UNIT in SYRINGE 0 ML IV SCH (00:15)
[2017-01-17] MEDS ORDERED: SODIUM CHLORIDE 0.9% 1000ML 1,000 ML IV SCH (00:15)
[2017-01-17] MEDS ORDERED: GLUCOSE 40% GEL 15 GM TUBE PO PRN (00:15)
[2017-01-17] MEDS ORDERED: GLUCOSE 10 TABS/TUBE PO PRN (00:15)
[2017-01-17] MEDS: INSULIN REGULAR 250 UNITS in SODIUM CHLORIDE 0.9% 250ML 250 ML IV SCH ×2 (00:35→12:10)
--- NOTE | 2017-01-17 00:38 | EMERGENCY ROOM VISIT NOTE ---
History Report prepared by Azra: Andra Cervantes Under the Supervision of: Dr. Ron Dunlap M.D. First contact with patient: 21:02 Chief Complaint: ABDOMINAL PAIN Stated Complaint: SEVERE PANCREAS PAIN,NAUSEA,DEHYDRATED History of Present Illness The patient is a 36 year old female who presents to the Emergency Room with complaints of persistent mid abdominal pain that began Thursday, but worsened Thursday. She currently rates her discomfort as an 8/10 in severity. The patient reports a history of pancreatitis, but states that her doctors have never found a cause of her pancreatitis. She states that her pain and symptoms today feel similar to her symptoms she experiences with pancreatitis. The patient associates nausea and vomiting with her symptoms today. She denies any fever, diarrhea, or urinary symptoms. The patient denies any alcohol use. She reports a history of a cholecystectomy. The patient states that she took the hydrocodone she was prescribed without relief of her symptoms. Source of History: patient Onset: Thursday Position: abdomen Symptom Intensity: 8/10 Timing: other (persistent) Associated Symptoms: + vomiting, No fevers, No diarrhea, No urinary symptoms Review of Systems See HPI for pertinent positives & negatives. A total of 10 systems reviewed and were otherwise negative. Past Medical & Surgical Medical Problems: (1) Abdominal pain (2) Abscess of groin, left (3) Acute abdominal pain (4) Acute abdominal pain (5) Acute diverticulitis (6) Acute on chronic pancreatitis (7) Acute pancreatitis (8) Attn Defic Nonhyperact (9) Bronchitis (10) Cellulitis (11) Dehydration (12) Dehydration (13) Diabetes (14) Intractable nausea and vomiting (15) Left lower quadrant pain (16) MRSA (17) Nausea, vomiting and diarrhea (18) Nausea, vomiting, and diarrhea (19) Pancreatitis (20) Pancreatitis (21) Pancreatitis (22) Polycystic Ovaries (23) RUQ abdominal pain (24) Tobacco abuse counseling (25) Type 2 diabetes mellitus with hyperglycemia (26) Type 2 diabetes mellitus with hyperglycemia (27) Type 2 diabetes mellitus with hyperglycemia Surgical Problems: (1) Cyst removal (2) Hx laparoscopic cholecystectomy (3) Tonsillectomy Family History Diabetes mellitus Heart disease Social History Smoking Status: Current Every Day Smoker Alcohol Use: none Drug Use: none Marital Status: Housing Status: lives with family Occupation Status: employed Current/Historical Medications Scheduled Metformin Hcl Er (Glucophage Er), 1,000 MG PO BID Ondasetron Odt (Zofran Odt), 4 MG SL Q4 Pancrelipase (Lipase-Protease- (Creon [id number]), 36,000 UNITS PO QID Scheduled PRN Diphenhydramine Hcl (Benadryl Allergy), 75 MG PO HS PRN for Sleep Ondansetron (Ondansetron HCl), 8 MG PO TID PRN for Nausea or Vomiting Promethazine Hcl (Phenergan), 25 MG PO Q6H PRN for Nausea Tramadol HCl (Tramadol HCl), 50-100 MG PO Q4H PRN for Pain Allergies Coded Allergies: Penicillins (Verified Allergy, Severe, ANAPHYLAXIS, 01/16/17) Clindamycin (Verified Allergy, Mild, RASH, 01/16/17) Methylphenidate (Verified Adverse Reaction, Mild, NAUSEA, 01/16/17) Physical Exam Vital Signs Date Time Temp Pulse Resp B/P (MAP) Pulse Ox O2 Delivery O2 Flow Rate FiO2 01/16/17 23:21 103 22 108/89 94 Room Air 01/16/17 22:06 109 22 154/109 95 Room Air 01/16/17 21:42 109 18 156/107 99 Room Air 01/16/17 20:16 36.3 118 26 177/96 100 Room Air Physical Exam Constitutional: Vital signs reviewed. Eyes: Pupils are equal round reactive to light. Conjunctiva are noninjected. ENT: Pharynx is clear without erythema or exudate. Mucous membranes are dry. Neck supple without meningeal signs. Respiratory: Clear to auscultation bilaterally. Breath sounds are equal bilaterally. Tachypnea. Cardiovascular: Regular rate and rhythm. No rubs or gallops. GI: Supraumbilical tenderness, no guarding no CVA tenderness. Soft, nondistended. Bowel sounds are present. Musculoskeletal: No peripheral edema. No lower extremity tenderness. Integumentary: No cyanosis. Neurological: The patient is awake and alert. No focal deficits. Psychiatric: Anxious. Medical Decision & Procedures ER Provider Diagnostic Interpretation: Radiology results as stated below per my review and the radiologist's interpretation: SINGLE VIEW CHEST CLINICAL HISTORY: Fever. FINDINGS: An AP, portable, upright chest radiograph is compared to study dated 01/15/2017. The examination is degraded by portable technique and patient rotation. The cardiomediastinal silhouette is unremarkable. Minimal atelectasis is seen at the left lung base. The lungs and pleural spaces are otherwise clear. No pneumothorax is seen. The bony thorax is grossly intact. Cholecystectomy clips are identified in the right upper quadrant. IMPRESSION: No active disease in the chest. Electronically signed by: Miller Adorno M.D. 01/16/2017 10:42 PM Dictated Date/Time: 01/16/2017 10:[address] SCAN OF THE ABDOMEN AND PELVIS WITHOUT IV CONTRAST CLINICAL HISTORY: Generalized abdominal pain. COMPARISON STUDY: Abdominal CT dated 01/08/2016. TECHNIQUE: CT scan of the abdomen and pelvis is performed from the lung bases to the proximal femora. Images are reviewed in the axial, sagittal, and coronal planes. IV contrast was not administered for this examination as per the referring clinician. Note that the examination was performed in significantly suboptimal fashion without oral and IV contrast. The examination is also degraded by motion artifact. Automated dose control exposure was utilized. CT DOSE: 435.25 mGy.cm FINDINGS: Lung bases: The heart is normal in size and without pericardial effusion. Patchy groundglass opacities are seen within a subpleural distribution at both lung bases. No pleural effusion is identified. Liver: The unenhanced liver is normal in size, contour, and attenuation. There is no intrahepatic biliary ductal dilatation. Gallbladder: Surgically absent noting clips in the gallbladder fossa. Spleen: Normal in size and attenuation. Pancreas: Atrophic for age and grossly unremarkable. Adrenal glands: Unremarkable. Kidneys: The unenhanced kidneys are normal in size and without hydronephrosis. There are no renal calculi identified. There is no evidence of contour deforming renal mass lesion. Abdominal vasculature: The abdominal aorta is normal in course and caliber noting scattered foci of atherosclerotic calcification. Stomach and bowel: The stomach is distended and fluid-filled. The duodenum is normal in configuration and the small bowel loops are normal in caliber. The appendix is normal as visualized. Peritoneum: There is no intraperitoneal free air or abdominal ascites. Lymphadenopathy: None. Pelvic viscera: The bladder is markedly distended but otherwise normal in appearance. The uterus and adnexa are within normal limits. Skeletal structures: No lytic or blastic lesions are seen. IMPRESSION: 1. Significantly suboptimal examination without oral and IV contrast. The examination is also significantly motion compromised which degrades interpretation. 2. There are subpleural and wedge shaped groundglass opacities present at both lung bases. These are nonspecific and could represent an infectious/inflammatory pneumonitis. The appearance is atypical, and this could also be seen in the setting of pulmonary emboli with pulmonary infarcts. Consider correlation with a CT angiogram of the chest for further assessment. 3. The bladder is markedly distended but otherwise normal in appearance. 4. The stomach is distended and fluid-filled. The small bowel loops and colon are normal in caliber, with no evidence of small bowel obstruction. This is of indeterminate significance, and could be seen if there is some degree of gastric outlet obstruction. Clinical correlation will be essential. 5. The pancreas is atrophic and normal as visualized. 6. Additional findings as above. Electronically signed by: Miller Adorno M.D. 01/16/2017 11:12 PM Dictated Date/Time: 01/16/2017 11:04 PM Laboratory Results 01/16/17 21:25 Red Blood Count 4.98, Mean Corpuscular Volume 99.8, Mean Corpuscular Hemoglobin 35.3, Mean Corpuscular Hemoglobin Concent 35.4, Mean Platelet Volume 10.6, Neutrophils (%) (Auto) 89.1, Lymphocytes (%) (Auto) 3.2, Monocytes (%) (Auto) 7.0, Eosinophils (%) (Auto) 0.1, Basophils (%) (Auto) 0.1, Neutrophils # (Auto) 29.61, Lymphocytes # (Auto) 1.06, Monocytes # (Auto) 2.34, Eosinophils # (Auto) 0.02, Basophils # (Auto) 0.03 Test 01/16/17 20:35 01/16/17 21:25 01/16/17 22:40 01/16/17 23:24 Urine Color YELLOW Urine Appearance CLEAR (CLEAR) Urine pH 6.5 (4.5-7.5) Urine Specific [place] 1.016 (1.000-1.030) Urine Protein NEG (NEG) Urine Glucose (UA) NEG (NEG) Urine Ketones NEG (NEG) Urine Occult Blood NEG (NEG) Urine Nitrite NEG (NEG) Urine Bilirubin NEG (NEG) Urine Urobilinogen NEG (NEG) Urine Leukocyte Esterase NEG (NEG) Urine Test NEG (NEG) White Blood Count 33.22 K/uL (4.8-10.8) Red Blood Count 4.98 M/uL (4.2-5.4) Hemoglobin 17.6 g/dL (12.0-16.0) Hematocrit 49.7 % (37-47) Mean Corpuscular Volume 99.8 fL (80-100) Mean Corpuscular Hemoglobin 35.3 pg (25-34) Mean Corpuscular Hemoglobin Concent 35.4 g/dl (32-36) Platelet Count 268 K/uL (130-400) Mean Platelet Volume 10.6 fL (7.4-10.4) Neutrophils (%) (Auto) 89.1 % Lymphocytes (%) (Auto) 3.2 % Monocytes (%) (Auto) 7.0 % Eosinophils (%) (Auto) 0.1 % Basophils (%) (Auto) 0.1 % Neutrophils # (Auto) 29.61 K/uL (1.4-6.5) Lymphocytes # (Auto) 1.06 K/uL (1.2-3.4) Monocytes # (Auto) 2.34 K/uL (0.11-0.59) Eosinophils # (Auto) 0.02 K/uL (0-0.5) Basophils # (Auto) 0.03 K/uL (0-0.2) RDW Standard Deviation 45.3 fL (36.4-46.3) RDW Coefficient of Variation 12.4 % (11.5-14.5) Immature Granulocyte % (Auto) 0.5 % Immature Granulocyte # (Auto) 0.16 K/uL (0.00-0.02) Est Creatinine Clear Calc Drug Dose 61.7 ml/min Total Bilirubin 0.5 mg/dl (0.2-1) Direct Bilirubin 0.1 mg/dl (0-0.2) Aspartate Amino Transf (AST/SGOT) 50 U/L (15-37) Alanine Aminotransferase (ALT/SGPT) 91 U/L (12-78) Alkaline Phosphatase 336 U/L (45-117) Total Protein 8.5 gm/dl (6.4-8.2) Albumin 4.1 gm/dl (3.4-5.0) Lipase 161 U/L (73-393) Beta-Hydroxybutyric Acid 130.65 mg/dL (0.2-2.81) Venous Blood pH 6.98 (7.36-7.41) Venous Blood Partial Pressure CO2 25 mmHg (38.0-50.0) Venous Blood Partial Pressure O2 26 mmHg Venous Blood HCO3 6 mmol/L Venous Blood Oxygen Saturation < 60.0 % Venous Blood Base Excess -24.9 mmol/L Bedside Glucose 303 mg/dl (70-90) Test 01/16/17 23:59 Laboratory results as reviewed by me. Medications Administered Medications (Trade) Dose Ordered Sig/Trino Route Start Time Stop Time Status Last Admin Dose Admin Morphine Sulfate (MoRPHine SULFATE INJ) 4 mg ONE STAT IV 01/16/17 21:09 01/16/17 21:11 DC 01/16/17 21:36 4 MG Ondansetron HCl (Zofran Inj) 4 mg NOW STAT IV 01/16/17 21:09 01/16/17 21:11 DC 01/16/17 21:37 4 MG Sodium Chloride 1,000 ml @ 999 mls/hr Q1H1M STAT IV 01/16/17 21:09 01/16/17 22:09 DC 01/16/17 21:37 999 MLS/HR Insulin Human Regular (novoLIN-R U-100 PER UNIT) 5 units NOW STAT IV 01/16/17 22:16 01/16/17 22:18 DC 01/16/17 22:16 5 UNITS Morphine Sulfate (MoRPHine SULFATE INJ) 4 mg NOW STAT IV 01/16/17 22:21 01/16/17 22:22 DC 01/16/17 22:30 4 MG ED Course 5: The patient was evaluated in room B7. A complete history and physical exam was performed. 2108: Ordered Sodium Chloride 1000 ml @ 999 mls/hr IV, Zofran Inj 4 mg IV, Morphine Sulfate 4 mg IV. 6: Ordered insulin Human Regular 5 units IV. 2221: I reevaluated the patient and she is still in pain. I spoke to her about her test results at this time. I discussed the treatment plan with her. She verbalized complete understanding and agreement. She will be evaluated for further treatment but will also have a CT scan. Ordered Morphine Sulfate 4 mg IV. 2309: Ordered Sodium Chloride 1000 ml @ 999 mls/hr IV. 2305: I reevaluated the patient and she is feeling much better. She is still in agreement with the treatment plan. 2320: I discussed the patients case with DrCANDELARIO Ace. He is going to evaluate the patient for further treatment. 2330: I reevaluated the patient and her repeat blood sugar is 302 mg/dL. I additionally discussed with her that she will be having a CT of her chest. Medical Decision This is a 36-year-old female who presents with abdominal pain and vomiting. Differential diagnosis includes pancreatitis, gastritis, choledocholithiasis, dehydration, bowel obstruction. I did perform a limited focused review of portions of the patient's old chart on the electronic medical record. The patient was here yesterday for abdominal pain. She had a biliary ultrasound which showed a possible 5 mm common bile duct stone, but had normal LFTs and lipase. She was discharged home with hydrocodone. Medication Reconciliation: I attest that I have personally reviewed the patient' s current medication list. Blood Pressure Screening: Patient was found to have an elevated blood pressure and was referred to their primary doctor for recheck and further treatment. I did evaluate the patient as noted above. The patient is presenting with abdominal pain and vomiting. She states the abdominal pain is identical to her previous episodes of pancreatitis. She was seen here yesterday and discharged after evaluation as described above. IV access was established. The patient was placed on a continuous trout farmer. I did order and personally review the patient's urinalysis as described above. There is no evidence of infection. She is not . I did order and review the patient's blood work as noted in the electronic medical record. Her white blood cell count is significantly elevated. She also has signs of diabetic ketoacidosis with an anion gap and hyperkalemia. I did treat her with IV insulin and IV fluids. She was also started on an insulin drip. I did order a CT of the abdomen and pelvis. I did review the images myself as well as the radiology report as described above. There is no evidence of obstruction or acute abnormality in the abdomen. There was concern for possible pneumonia versus PE on the CT scan. She does not have any chest pain or upper back pain. I did order blood cultures and a lactic acid and treated her with Levaquin for possible pneumonia. I did order a CT of the chest which showed what appears to be pneumonia. No PEs are noted. I did discuss the case with the hospitalist and rehabilitation case coordinator. She was admitted to the ICU. Consults Time Called: 2300 Consulting Physician: CANDELARIO Lombardo Returned Call: [id number] I discussed the patients case with CANDELARIO Lombardo. He is going to evaluate the patient for further treatment. Impression Primary Impression: DKA (diabetic ketoacidoses) Additional Impressions: Acute abdominal pain Bilateral pneumonia Critical Care I have personally spent greater than 40 minutes of critical care time in the direct management of this patient. This includes bedside care, interpretation of diagnostic studies, and testing, discussion with consultants, patient, and family members, and other required patient management activities. This 40 minutes is in excess of all separately billable procedures. Scribe Attestation The scribe's documentation has been prepared under my direct and personally reviewed by me in its entirety. I confirm that the note above accurately reflects all work, treatment, procedures, and medical decision making performed by me. Departure Information Dispostion Being Evaluated By Hospitalist Referrals Aram Elise M.D. (PCP) Problem Qualifiers Primary Impression: DKA (diabetic ketoacidoses) Diabetes mellitus type: type 2 Diabetes mellitus complication detail: without coma Qualified Codes: E13.10 - Other specified diabetes mellitus with ketoacidosis without coma Additional Impressions: Bilateral pneumonia Pneumonia type: due to unspecified organism Lung location: lower lobe of lung Qualified Codes: J18.9 - Pneumonia, unspecified organism
--- NOTE | 2017-01-17 00:40 | History and Physical ---
History & Physical Date & Time of Service: Jan 16, 2017 at 23:59 Chief Complaint: Severe Pancreas Pain,Nausea,Dehydrated Primary Care Physician: Aram Elise M.D. History of Present Illness Source: patient 36 y/o F Hx DM, chronic pancreatitis. Developed severe abdominal pain, nausea and several bouts of vomiting beginning early in the day. She presumed that this was due to a pancreatitis flare which she normally treats with bowel rest and narcotics in the outpatient setting. She could not hold down fluids and medications however and presented for evaluation. Initial labs are consistent with severe DKA and leukocytosis. There is no obvious source of infection. She denies any fevers, CP, SOB, cough or dysuria. She may have pancreatitis in addition to DKA despite a normal lipase due to her history of chronicity. A CT abdomen was obtained in the ER which could not r/o gastric outlet obstruction and incidentally revealed ground glass opacities at both lung bases. A follow up CTA was done to r/o PEs and PNM which did not show PEs but was concerning for an infectious process. She does not have a history of insulin dependence although her pancreas is atrophic. Past Medical/Surgical History 1) DM - no history of insulin dependence 2) Chronic idiopathic pancreatitis Surgical Problems: (1) Cyst removal Status: Resolved (2) Hx laparoscopic cholecystectomy Status: Resolved (3) Tonsillectomy Status: Resolved Family History Diabetes mellitus Heart disease Social History SMokes 1 pack daily - does not drink alcohol Smoking Status: Current Every Day Smoker Drug Use: none Marital Status: Housing status: lives with family Occupational Status: employed Multi-Drug Resistant Organisms History of MDRO: Yes Type of MDRO: MRSA Allergies Coded Allergies: Penicillins (Verified Allergy, Severe, ANAPHYLAXIS, 01/16/17) Clindamycin (Verified Allergy, Mild, RASH, 01/16/17) Methylphenidate (Verified Adverse Reaction, Mild, NAUSEA, 01/16/17) Home Medications Scheduled Metformin Hcl Er (Glucophage Er), 1,000 MG PO BID Ondasetron Odt (Zofran Odt), 4 MG SL Q4 Pancrelipase (Lipase-Protease- (Creon [id number]), 36,000 UNITS PO QID Scheduled PRN Diphenhydramine Hcl (Benadryl Allergy), 75 MG PO HS PRN for Sleep Ondansetron (Ondansetron HCl), 8 MG PO TID PRN for Nausea or Vomiting Promethazine Hcl (Phenergan), 25 MG PO Q6H PRN for Nausea Tramadol HCl (Tramadol HCl), 50-100 MG PO Q4H PRN for Pain Review of Systems Constitutional: No fever, No chills, No sweats Eyes: No worsening of vision ENT: No hearing loss, No unusual epistaxis, No nasal symptoms Respiratory: No cough, No sputum, No wheezing Cardiovascular: No chest pain, No orthopnea, No PND Abdomen: + pain, + nausea, + vomiting, No diarrhea Musculoskeletal: No joint pain, No muscle pain Genitourinary - Female: No dysuria, No urinary frequency, No urinary urgency Neurologic: + weakness, No memory loss, No paralysis Psychiatric: No depression symptoms Endocrine: No fatigue Hematologic / Lymphatic: No abnormal bleeding/bruising Integumentary: No rash Allergic / Immunologic: No environmental allergies Physical Exam Vital Signs Date Time Temp Pulse Resp B/P (MAP) Pulse Ox O2 Delivery O2 Flow Rate FiO2 01/16/17 23:21 103 22 108/89 94 Room Air 01/16/17 22:06 109 22 154/109 95 Room Air 01/16/17 21:42 109 18 156/107 99 Room Air 01/16/17 20:16 36.3 118 26 177/96 100 Room Air General Appearance: WD/WN, no apparent distress Head: normocephalic Eyes: normal inspection ENT: normal ENT inspection, pharynx normal Neck: supple, no JVD Respiratory/Chest: chest non-tender, lungs clear, normal breath sounds Cardiovascular: regular rate, rhythm, no edema, no gallop Abdomen/GI: normal bowel sounds, soft, + tenderness (mild, diffuse tenderness - no distention) Back: normal inspection, no CVA tenderness, no muscle spasm, normal range of motion Extremities/Musculoskelatal: normal inspection, no calf tenderness, normal capillary refill, no pedal edema, normal range of motion Neurologic/Psych: weight shifter II-XII nml as tested, no motor/sensory deficits, alert Skin: normal color, warm/dry, no rash Diagnostics Laboratory Results Results Past 24 Hours Test 01/16/17 20:35 01/16/17 21:25 01/16/17 22:40 01/16/17 23:24 Range/Units Urine Color YELLOW Urine Appearance CLEAR CLEAR Urine pH 6.5 4.5-7.5 Urine Specific [place] 1.016 1.000-1.030 Urine Protein NEG NEG Urine Glucose (UA) NEG NEG Urine Ketones NEG NEG Urine Occult Blood NEG NEG Urine Nitrite NEG NEG Urine Bilirubin NEG NEG Urine Urobilinogen NEG NEG Urine Leukocyte Esterase NEG NEG Urine Test NEG NEG White Blood Count 33.22 4.8-10.8 K/uL Red Blood Count 4.98 4.2-5.4 M/uL Hemoglobin 17.6 12.0-16.0 g/dL Hematocrit 49.7 37-47 % Mean Corpuscular Volume 99.8 80-100 fL Mean Corpuscular Hemoglobin 35.3 25-34 pg Mean Corpuscular Hemoglobin Concent 35.4 32-36 g/dl Platelet Count 268 130-400 K/uL Mean Platelet Volume 10.6 7.4-10.4 fL Neutrophils (%) (Auto) 89.1 % Lymphocytes (%) (Auto) 3.2 % Monocytes (%) (Auto) 7.0 % Eosinophils (%) (Auto) 0.1 % Basophils (%) (Auto) 0.1 % Neutrophils # (Auto) 29.61 1.4-6.5 K/uL Lymphocytes # (Auto) 1.06 1.2-3.4 K/uL Monocytes # (Auto) 2.34 0.11-0.59 K/uL Eosinophils # (Auto) 0.02 0-0.5 K/uL Basophils # (Auto) 0.03 0-0.2 K/uL RDW Standard Deviation 45.3 36.4-46.3 fL RDW Coefficient of Variation 12.4 11.5-14.5 % Immature Granulocyte % (Auto) 0.5 % Immature Granulocyte # (Auto) 0.16 0.00-0.02 K/uL Sodium Level 131 136-145 mmol/L Potassium Level 5.8 3.5-5.1 mmol/L Chloride Level 104 98-107 mmol/L Carbon Dioxide Level 5 21-32 mmol/L Anion Gap 22.0 3-11 mmol/L Blood Urea Nitrogen 11 7-18 mg/dl Creatinine 0.98 0.60-1.20 mg/dl Est Creatinine Clear Calc Drug Dose 61.7 ml/min Estimated GFR () 86.6 Estimated GFR (Non- 74.7 BUN/Creatinine Ratio 11.1 10-20 Random Glucose 401 70-99 mg/dl Calcium Level 9.3 8.5-10.1 mg/dl Total Bilirubin 0.5 0.2-1 mg/dl Direct Bilirubin 0.1 0-0.2 mg/dl Aspartate Amino Transf (AST/SGOT) 50 15-37 U/L Alanine Aminotransferase (ALT/SGPT) 91 12-78 U/L Alkaline Phosphatase 336 45-117 U/L Total Protein 8.5 6.4-8.2 gm/dl Albumin 4.1 3.4-5.0 gm/dl Lipase 161 73-393 U/L Beta-Hydroxybutyric Acid 130.65 0.2-2.81 mg/dL Venous Blood pH 6.98 7.36-7.41 Venous Blood Partial Pressure CO2 25 38.0-50.0 mmHg Venous Blood Partial Pressure O2 26 mmHg Venous Blood HCO3 6 mmol/L Venous Blood Oxygen Saturation < 60.0 % Venous Blood Base Excess -24.9 mmol/L Bedside Glucose 303 70-90 mg/dl Microbiology Results 01/16/17 Blood Culture, Kory Batch Pending 01/16/17 Blood Culture, Ordered Pending Diagnostic Radiology CT abdomen 1. Significantly suboptimal examination without oral and IV contrast. The examination is also significantly motion compromised which degrades interpretation. 2. There are subpleural and wedge shaped groundglass opacities present at both lung bases. These are nonspecific and could represent an infectious/inflammatory pneumonitis. The appearance is atypical, and this could also be seen in the setting of pulmonary emboli with pulmonary infarcts. Consider correlation with a CT angiogram of the chest for further assessment. 3. The bladder is markedly distended but otherwise normal in appearance. 4. The stomach is distended and fluid-filled. The small bowel loops and colon are normal in caliber, with no evidence of small bowel obstruction. This is of indeterminate significance, and could be seen if there is some degree of gastric outlet obstruction. Clinical correlation will be essential. 5. The pancreas is atrophic and normal as visualized. CTA No PE B/L ground glass opacities concerning for infectious/inflammatory process Impression Assessment and Plan 36 y/o F Hx DM, chronic pancreatitis. Developed severe abdominal pain, nausea and several bouts of vomiting beginning early in the day. She could not hold down fluids and medications however and presented for evaluation. Initial labs are consistent with severe DKA and leukocytosis. There is no obvious source of infection. She denies any fevers, CP, SOB, cough or dysuria. She may have pancreatitis in addition to DKA despite a normal lipase due to her history of chronicity. A CT abdomen was obtained in the ER which could not r/o gastric outlet obstruction and incidentally revealed ground glass opacities at both lung bases. A follow up CTA was done to r/o PEs and PNM which did not show PEs but was concerning for an infectious process. 1) DKA - She does not have a history of insulin dependence. Her last A1C dates to 02/25 and was 5.1. Prior to this her A1C was 9.7. She stated that she had lost nearly 100 lbs over the past year. It is likely that her chronic pancreatitis has now lead to insulin dependence. We have admitted her to the ICU with a DKA protocol. She will be aggressively hydrated and we will repeat an electrolyte panel and VBG at frequent intervals. Will consider Bicarb use if PH does not markedly improve. She is placed on an insulin drip. She will require an endocrine consult and diabetic teaching prior to D/C. 2) Pancreatitis - she may have pancreatitis despite a normal lipase - the treatment would not vary much from her DKA treatment as she will be placed on clears and hydrated. 3) Ground glass opacities on CT - No clinical evidence of PNM. Leukocytosis is likely the result of DKA. I would choose not to treat with antibiotics at present however this will be discussed with the command and control systems integrator. 4) Possible gastric outlet obstruction - she has a fluid filled stomach on initial CT. She states that she feels improved following antiemetics and IVF in the ER and her abdominal exam is currently benign. This may be the result of gastroparesis related to DKA. Oral intake will be limited regardless at present. With worsening pain or intractable vomiting we would choose to consult surgery. We will start scheduled Reglan. 5) Tobacco abuse - Advise on cessation prior to D/C. Full code - Heparin prophylaxis Total time for this admit including review of labs, records, imaging - discussion with pt, command and control systems integrator, ER attending - 50 min - includes critical care time Level of Care Critical Care Resuscitation Status FULL RESUSCITATION VTE Prophylaxis Given or contraindicated: Unfractionated heparin SQ
[2017-01-17] MEDS ORDERED: HYDROmorphone INJ 0.5 MG/0.5 ML SYR IV PRN (00:45)
[2017-01-17] MEDS ORDERED: ACETAMINOPHEN 325 MG TAB PO PRN (00:45)
--- NOTE | 2017-01-17 01:13 | Critical Care Consultation ---
Critical Care Consultation Date of Consultation: Jan 17, 2017. Attending Physician: Dr. Neel Villalobos Reason for Consultation: DKA History of Present Illness Monica Cooper is a 36-year-old female who has presented to [facility] twice in the last two days for abd pain/dehydration. She states she came in yesterday with the same symptoms that resolved after her treatment in the ED. She suffers from chronic pancreatitis which typically resolves with bowel rest and pain medication. However, over the last 2 days she has vomited at least 6 times, she denies any blood present. She was experiencing abd pain at about an 8/10 intermittently. She said that sips of water where helping until the pain became too much and she would vomit. She reports that she has increased urination as well. Secondary to these long standing issues she has recently lost over 100 pounds 2/2 diet and exercise. Per talking with Dr. Villalobos in the ED, I was told that she had an A1C in February of last year in the 5's. However, I have been unable to find this same record. The last A1C I see at [facility] is 12.5 in Apr 2016. Medical records in [employer] are up to date through 2014. Up until now, pt has never been treated with insulin for DM. ED studies demonstrated no processes on CXR, ground glass opacity at lung bases , distend bladder, distend stomach/bowels, and atrophic pancreas on CT. CTA was performed to rule out PE as well. Per my read, I see no gross signs of pulmonary embolism however CT is very poor quality due to motion/breathing artifact. Pt is resting comfortably in ICU room 110 when I examined her. She states her pain is much better, about a 4/10. She points to the majority of her pain being slightly more flank related than expected. She is guarding on physical exam which is limiting. Pt states she has not had fever/chills, dyspnea. cough or chest pain. However, the abd pain did take her breath away at times. She denies any other changes in UA/GI symptoms other than already noted. She does not experience numbness/tingling or dizziness. Past Medical/Surgical History Medical Problems: Abdominal pain Abscess of groin, left Acute abdominal pain Acute diverticulitis Acute on chronic pancreatitis Attn Defic Nonhyperact Bronchitis Cellulitis Dehydration Intractable nausea and vomiting Left lower quadrant pain MRSA Nausea, vomiting and diarrhea Polycystic Ovaries RUQ abdominal pain Tobacco abuse counseling Type 2 diabetes mellitus with hyperglycemia Surgical Problems: Cyst removal Hx laparoscopic cholecystectomy Tonsillectomy Family History Diabetes mellitus Heart disease Social History Smoking Status: Current Every Day Smoker (1ppd x 17yrs) Alcohol Use: none Drug Use: none Marital Status: Housing Status: lives with family 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[employer]) Allergies Coded Allergies: Penicillins (Verified Allergy, Severe, ANAPHYLAXIS, 01/16/17) Clindamycin (Verified Allergy, Mild, RASH, 01/16/17) Methylphenidate (Verified Adverse Reaction, Mild, NAUSEA, 01/16/17) Home Medications Scheduled Metformin Hcl Er (Glucophage Er), 1,000 MG PO BID Ondasetron Odt (Zofran Odt), 4 MG SL Q4 Pancrelipase (Lipase-Protease- (Creon [id number]), 36,000 UNITS PO QID Scheduled PRN Diphenhydramine Hcl (Benadryl Allergy), 75 MG PO HS PRN for Sleep Ondansetron (Ondansetron HCl), 8 MG PO TID PRN for Nausea or Vomiting Promethazine Hcl (Phenergan), 25 MG PO Q6H PRN for Nausea Tramadol HCl (Tramadol HCl), 50-100 MG PO Q4H PRN for Pain Current Inpatient Medications Current Inpatient Medications Medications (Trade) Dose Ordered Sig/Trino Route Start Time Stop Time Status Last Admin Dose Admin Ioversol (Optiray 320) 100 ml UD PRN IV 01/16/17 23:30 01/20/17 23:29 Insulin Aspart (novoLOG ASPART) SLIDING SCALE PCHS SC 01/17/17 09:00 02/16/17 08:59 Sodium Chloride 1,000 ml @ 200 mls/hr Q5H IV 01/17/17 00:15 01/18/17 01:14 Miscellaneous Information (Consult Glycemic Management Pharmacy) 1 ea UD PRN N/A 01/17/17 00:00 02/16/17 00:00 Insulin Human Regular 250 units/ Sodium Chloride 252.5 ml @ 0 mls/hr DAILY@1130 IV 01/17/17 00:15 02/16/17 00:14 01/17/17 00:35 1.8 MLS/HR Glucose (Glucose 40% Gel) UD PRN PO 01/17/17 00:15 02/16/17 00:14 Glucose (Glucose Chew Tab) 1 tabs UD PRN PO 01/17/17 00:15 02/16/17 00:14 Dextrose (Dextrose 50% 50ML Syringe) 50 ml UD PRN IV 01/17/17 00:15 02/16/17 00:14 Glucagon (Glucagon Inj) 1 mg UD PRN SQ 01/17/17 00:15 02/16/17 00:14 Potassium Chloride/Dextrose/ Sod Cl 1,000 ml @ 200 mls/hr Q5H IV 01/17/17 00:15 02/16/17 00:14 UNV Potassium Chloride/Sodium Chloride 1,000 ml @ 200 mls/hr Q5H IV 01/17/17 00:15 02/16/17 00:14 UNV Heparin Sodium (Porcine) (Heparin Sq 5000 Unit/0.5ml) 5,000 unit Q8H SQ 01/17/17 00:45 02/16/17 00:44 UNV Acetaminophen (Tylenol Tab) 650 mg Q4H PRN PO 01/17/17 00:45 02/16/17 00:44 UNV Hydromorphone HCl (Dilaudid Inj) 0.5 mg Q4H PRN IV 01/17/17 00:45 01/31/17 00:44 UNV Diphenhydramine HCl (Benadryl Cap) 75 mg HS PRN PO 01/17/17 01:00 02/16/17 00:59 UNV Review of Systems 12 systems reviewed and negative other than previously mentioned in the HPI. Physical Exam Date Time Temp Pulse Resp B/P (MAP) Pulse Ox O2 Delivery O2 Flow Rate FiO2 01/17/17 00:47 99 18 108/89 95 Room Air 01/16/17 23:21 103 22 108/89 94 Room Air 01/16/17 22:06 109 22 154/109 95 Room Air 01/16/17 21:42 109 18 156/107 99 Room Air 01/16/17 20:16 36.3 118 26 177/96 100 Room Air Vital Signs - as noted Laboratory Data - as noted Physical Exam: General - NAD, Resting comfortably in bed Eyes - PERRL, EOMI No icterus, gaze conjugate ENT - Mucosa dry, no lesions or candidiasis Neck - Supple, trachea midline, no masses or lymphadenopathy, no JVD or bruits Lungs - No paradoxical chest wall movement, clear to auscultation bilaterally, no wheezes, rales, or rhonchi Heart - Reg rate and rhythm, No murmur, rubs, clicks, or gallops appreciated Abdomen - hypoactive BS present, no bruits noted, tympanic to percussion, soft, tender with guarding throughout, nondistended, no organomegaly Extremities - No edema, pedal pulses intact Neuro - A&O X 4 Strength extremities equal and appropriate bilaterally Reflexes: normal and equal CN:PERRL, EOMI, no facial asymmetry, uvula/tongue midline Laboratory Results Last 24 Hours Test 01/16/17 20:35 01/16/17 21:25 01/16/17 22:40 01/16/17 23:24 Urine Color YELLOW Urine Appearance CLEAR Urine pH 6.5 Urine Specific [place] 1.016 Urine Protein NEG Urine Glucose (UA) NEG Urine Ketones NEG Urine Occult Blood NEG Urine Nitrite NEG Urine Bilirubin NEG Urine Urobilinogen NEG Urine Leukocyte Esterase NEG Urine Test NEG White Blood Count 33.22 K/uL Red Blood Count 4.98 M/uL Hemoglobin 17.6 g/dL Hematocrit 49.7 % Mean Corpuscular Volume 99.8 fL Mean Corpuscular Hemoglobin 35.3 pg Mean Corpuscular Hemoglobin Concent 35.4 g/dl Platelet Count 268 K/uL Mean Platelet Volume 10.6 fL Neutrophils (%) (Auto) 89.1 % Lymphocytes (%) (Auto) 3.2 % Monocytes (%) (Auto) 7.0 % Eosinophils (%) (Auto) 0.1 % Basophils (%) (Auto) 0.1 % Neutrophils # (Auto) 29.61 K/uL Lymphocytes # (Auto) 1.06 K/uL Monocytes # (Auto) 2.34 K/uL Eosinophils # (Auto) 0.02 K/uL Basophils # (Auto) 0.03 K/uL RDW Standard Deviation 45.3 fL RDW Coefficient of Variation 12.4 % Immature Granulocyte % (Auto) 0.5 % Immature Granulocyte # (Auto) 0.16 K/uL Sodium Level 131 mmol/L Potassium Level 5.8 mmol/L Chloride Level 104 mmol/L Carbon Dioxide Level 5 mmol/L Anion Gap 22.0 mmol/L Blood Urea Nitrogen 11 mg/dl Creatinine 0.98 mg/dl Est Creatinine Clear Calc Drug Dose 61.7 ml/min Estimated GFR () 86.6 Estimated GFR (Non- 74.7 BUN/Creatinine Ratio 11.1 Random Glucose 401 mg/dl Calcium Level 9.3 mg/dl Total Bilirubin 0.5 mg/dl Direct Bilirubin 0.1 mg/dl Aspartate Amino Transf (AST/SGOT) 50 U/L Alanine Aminotransferase (ALT/SGPT) 91 U/L Alkaline Phosphatase 336 U/L Total Protein 8.5 gm/dl Albumin 4.1 gm/dl Lipase 161 U/L Beta-Hydroxybutyric Acid 130.65 mg/dL Venous Blood pH 6.98 Venous Blood Partial Pressure CO2 25 mmHg Venous Blood Partial Pressure O2 26 mmHg Venous Blood HCO3 6 mmol/L Venous Blood Oxygen Saturation < 60.0 % Venous Blood Base Excess -24.9 mmol/L Bedside Glucose 303 mg/dl Test 01/16/17 23:[address] SCAN OF THE ABDOMEN AND PELVIS WITHOUT IV CONTRAST CLINICAL HISTORY: Generalized abdominal pain. COMPARISON STUDY: Abdominal CT dated 01/08/2016. TECHNIQUE: CT scan of the abdomen and pelvis is performed from the lung bases to the proximal femora. Images are reviewed in the axial, sagittal, and coronal planes. IV contrast was not administered for this examination as per the referring clinician. Note that the examination was performed in significantly suboptimal fashion without oral and IV contrast. The examination is also degraded by motion artifact. Automated dose control exposure was utilized. CT DOSE: 435.25 mGy.cm FINDINGS: Lung bases: The heart is normal in size and without pericardial effusion. Patchy groundglass opacities are seen within a subpleural distribution at both lung bases. No pleural effusion is identified. Liver: The unenhanced liver is normal in size, contour, and attenuation. There is no intrahepatic biliary ductal dilatation. Gallbladder: Surgically absent noting clips in the gallbladder fossa. Spleen: Normal in size and attenuation. Pancreas: Atrophic for age and grossly unremarkable. Adrenal glands: Unremarkable. Kidneys: The unenhanced kidneys are normal in size and without hydronephrosis. There are no renal calculi identified. There is no evidence of contour deforming renal mass lesion. Abdominal vasculature: The abdominal aorta is normal in course and caliber noting scattered foci of atherosclerotic calcification. Stomach and bowel: The stomach is distended and fluid-filled. The duodenum is normal in configuration and the small bowel loops are normal in caliber. The appendix is normal as visualized. Peritoneum: There is no intraperitoneal free air or abdominal ascites. Lymphadenopathy: None. Pelvic viscera: The bladder is markedly distended but otherwise normal in appearance. The uterus and adnexa are within normal limits. Skeletal structures: No lytic or blastic lesions are seen. IMPRESSION: 1. Significantly suboptimal examination without oral and IV contrast. The examination is also significantly motion compromised which degrades interpretation. 2. There are subpleural and wedge shaped groundglass opacities present at both lung bases. These are nonspecific and could represent an infectious/inflammatory pneumonitis. The appearance is atypical, and this could also be seen in the setting of pulmonary emboli with pulmonary infarcts. Consider correlation with a CT angiogram of the chest for further assessment. 3. The bladder is markedly distended but otherwise normal in appearance. 4. The stomach is distended and fluid-filled. The small bowel loops and colon are normal in caliber, with no evidence of small bowel obstruction. This is of indeterminate significance, and could be seen if there is some degree of gastric outlet obstruction. Clinical correlation will be essential. 5. The pancreas is atrophic and normal as visualized. 6. Additional findings as above. Electronically signed by: Miller Adorno M.D. 01/16/2017 11:12 PM Dictated Date/Time: 01/16/2017 11:04 PM SINGLE VIEW CHEST CLINICAL HISTORY: Fever. FINDINGS: An AP, portable, upright chest radiograph is compared to study dated 01/15/2017. The examination is degraded by portable technique and patient rotation. The cardiomediastinal silhouette is unremarkable. Minimal atelectasis is seen at the left lung base. The lungs and pleural spaces are otherwise clear. No pneumothorax is seen. The bony thorax is grossly intact. Cholecystectomy clips are identified in the right upper quadrant. IMPRESSION: No active disease in the chest. Electronically signed by: Miller Adorno M.D. 01/16/2017 10:42 PM Dictated Date/Time: 01/16/2017 10:40 PM Assessment & Plan (1) Dehydration (2) Acute on chronic pancreatitis (3) Acute abdominal pain (4) DKA (diabetic ketoacidoses) (5) Type 2 diabetes mellitus with hyperglycemia (6) Metabolic acidosis (7) Hyponatremia (8) Hypophosphatemia (9) Hyperchloremia (10) Transaminitis (11) Hyperkalemia Reason Critically Ill: Patient is an 36-year-old female who is transferred to the ICU for DKA likely possible acute on chronic pancreatitis. PLAN: Endocrine: * Continue DKA Protocol * Insulin drip per above protocol * Check electrolytes, BUN, venous pH, prp (Cr + Glucose) q4h * Normosol @ 200. When glucose falls below 200 will add D5W; when K <5 add 20K to 1L of fluids * Check A1C * Gap closin -17; Correct sodium 139 (WNL) * DM education ordered Electrolytes: * Phos is 1.0: Replace per protocol * K goal between 4-5; parameters above * Mg WNL : * Cr 0.98 to 0.6; Baseline 0.6 * Strict I&O's: approx 2L positive * Pt permitted to drink * PRP q4h per DKA Protocol above * Consider rose catheter in needed GI: * Acute on Chronic Pancreatitis Possible; CT suspicious of gastric outlet obstruction, Transaminitis on labs * Will defer to Dr. Stevens for GI Consult * Avoid Hepatic Toxins * Diet is tolerated * Reglan for nausea; possibility of gastroparesis Resp: * Supplemental oxygen as required * Monitor closely for fluid overload CV: * No Chest Pain * Monitor on telemetry ID: * WBC: 33.22; Afebrile * Procalcitonin Neg * No obvious source of infection * 1 x dose of Levaquin in ED; No ABX currently recommended Heme: * Aspect dilution to occur * Monitor CBC daily * DVT Prophylaxis: Heparin 5kU BID * Pt refused heparin * Will order lower extremity dopplers followed by SCDs Access: Maintain 2 PIVs CCT: 60 Minutes; This time is exclusive of all separately billable procedures. Thank you for involving us in the care of this patient. Please refer to Dr. Delvin Stevens's addendum for further recommendations. I have personally evaluated and examined this patient. I agree with assessment and plan of Teodoro Chow PA-C. I have reviewed the patient's PA [employer], in the last year she has received 22 prescriptions from 6 different prescribers filled at 2 different pharmacies, her active daily morphine milligrams equivalence is 65, she last received a prescription for oxycodone 5 mg quantity 30 on January 16, 1 day before presentation. She also has routine prescriptions for tramadol 50 mg quantity 120 day supply of 30. PLAN: Neuro: Pain significantly improved Resp: Adequate oxygen saturation on room air CV: Hemodynamics significantly improved, no longer tachycardic Fluids/Renal: Gap closed, mild hyperchloremia, will start oral feeding, continue insulin infusion with dextrose in solution ID: Calcitonin unremarkable, no obvious bacterial infection, urine normal consider precipitating event gastroenteritis GI/Nutrition: Written for full liquids low-fat given history of pancreatitis, stopping scheduled Reglan Heme: Heparin prophylaxis Endocrine: Glycemic consult, improving DKA we will wean drip start long acting insulin 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
[2017-01-17] MEDS ORDERED: PENDING D5NS+20mEq KCL IVF SCH (02:00)
[2017-01-17] MEDS ORDERED: PENDING NSS+20mEq KCL IVF SCH (02:00)
[2017-01-17] MEDS ORDERED: NORMOSOL R 1,000 ML IV SCH (02:00)
[2017-01-17 02:18] LABS: INR 0.9 (0.9-1.1)
[2017-01-17] MEDS: METOCLOPRAMIDE HCL INJ 5 MG/ML 2 ML VIAL IV. SCH ×3 (02:21→13:22)
[2017-01-17 03:07] LABS: BUN/CREATININE RATIO 15.5 (10-20); CALCIUM 8.4 mg/dl (8.5-10.1); CREATININE 0.6 mg/dl (0.60-1.20); MAGNESIUM 2.4 mg/dl (1.8-2.4)
[2017-01-17 03:09] LABS: POTASSIUM 4.6 mmol/L (3.5-5.1)
[2017-01-17] MEDS ORDERED: SODIUM PHOSPHATE 3 MMOL/1 ML INFUSION IV STA (03:11)
[2017-01-17] MEDS ORDERED: SODIUM PHOSPHATE INJ 30 MMOL in SODIUM CHLORIDE 0.9% 500ML 500 ML IV SCH (03:45)
[2017-01-17] MEDS: POTASSIUM CHLORIDE IV SCH ×2 (03:46→13:22)
[2017-01-17] MEDS: [UNRECOGNIZED DRUG - OTHER] IV SCH ×2 (03:46→13:22)
[2017-01-17 05:02] LABS: ALB/GLOB RATIO 0.9 (0.9-2); BUN/CREATININE RATIO 12.3 (10-20); CALCIUM 8.4 mg/dl (8.5-10.1); CREATININE 0.67 mg/dl (0.60-1.20); MAGNESIUM 2.4 mg/dl (1.8-2.4); PHOSPHORUS 0.8 mg/dl (2.5-4.9); POTASSIUM 4.6 mmol/L (3.5-5.1)
[2017-01-17] MEDS: HEPARIN SOD 5000 UNIT/0.5 ML CARP SQ SCH ×3 (05:35→13:22)
--- NOTE | 2017-01-17 07:12 | DIAGNOSTIC IMAGING REPORT ---
CT ANGIOGRAM OF THE CHEST CLINICAL HISTORY: Chest and abdominal pain. Abnormal abdominal CT scan. COMPARISON STUDY: CT scan of the abdomen and pelvis dated 01/16/2017, CT scan of chest dated 10/06/2012 TECHNIQUE: Following the IV administration of 64 mL of Optiray-320, CT angiogram of the thorax was performed from the thoracic inlet to the lung bases utilizing the pulmonary embolus protocol. Images are reviewed in the axial, sagittal, and coronal planes. IV contrast was administered without complication. MIP imaging was performed. CT DOSE: 170.15 mGy.cm FINDINGS: No pathologically enlarged axillary mediastinal or hilar lymph nodes were visualized. There was no evidence of thoracic aortic dilatation. Pulmonary artery evaluation is significantly limited due to marked respiratory motion artifact. No central emboli are visualized. There are no significant pleural effusions Evaluation the parenchyma is limited due to respiratory motion artifact. There are bilateral peripheral lower lobe groundglass pulmonary opacities. Also evident are right middle lobe, right upper lobe, and left upper lobe groundglass opacities. The findings are likely infectious/inflammatory. Clinical and imaging follow-up is recommended. There is a dilated fluid-filled stomach. IMPRESSION: 1. Significantly limited study from a technical standpoint secondary to respiratory motion artifact 2. No central pulmonary emboli identified 3. Multifocal peripheral groundglass pulmonary opacities, likely infectious/inflammatory. Clinical and imaging follow-up is recommended Electronically signed by: Issa Sebastian M.D. 01/17/2017 7:11 AM Dictated Date/Time: 01/17/2017 7:05 AM
--- NOTE | 2017-01-17 07:13 | DIAGNOSTIC IMAGING REPORT ---
ULTRASOUND VENOUS DOPPLER LWR EXT BILA CLINICAL HISTORY: Leg swelling. COMPARISON STUDY: No previous studies for comparison. FINDINGS: Real-time and color flow Doppler imaging were performed. Flow was seen within the femoral, popliteal and calf veins with no intraluminal thrombus demonstrated. The saphenous vein is patent. IMPRESSION: No evidence of lower extremity DVT. Electronically signed by: Issa Sebastian M.D. 01/17/2017 7:11 AM Dictated Date/Time: 01/17/2017 7:11 AM
[2017-01-17 07:28] LABS: ESTIMATED AVERAGE GLUCOSE 278 mg/dl; HA1C FLAG Normal (Normal)
[2017-01-17] MEDS: INSULIN ASPART 100 UNITS/ML 3 ML PEN SC SCH ×5 (08:00→23:43)
[2017-01-17 08:52] LABS: BUN/CREATININE RATIO 9.4 (10-20); CALCIUM 8.9 mg/dl (8.5-10.1); CREATININE 0.69 mg/dl (0.60-1.20); MAGNESIUM 2.2 mg/dl (1.8-2.4); POTASSIUM 4.2 mmol/L (3.5-5.1)
[2017-01-17 13:14] LABS: BUN/CREATININE RATIO 9.3 (10-20); CALCIUM 8.7 mg/dl (8.5-10.1); CREATININE 0.56 mg/dl (0.60-1.20); MAGNESIUM 2.1 mg/dl (1.8-2.4); PHOSPHORUS 1.6 mg/dl (2.5-4.9); POTASSIUM 3.9 mmol/L (3.5-5.1)
[2017-01-17] MEDS ORDERED: NURSING VERBAL MED ORDER ONE (16:15)
[2017-01-17] MEDS ORDERED: POTASSIUM PHOSPHATE INJ 24 MMOL in SODIUM CHLORIDE 0.9% 500ML 500 ML IV SCH (16:30)
--- NOTE | 2017-01-17 16:47 | Pharmacy Progress Note ---
Glycemic Control Intl Consult Date of Service Jan 17, 2017. Scope Glycemic Pharmacist consulted by Dr Villalobos on 01/17/17 for glycemic control and to write orders per [facility] ED inpatient glycemic control protocol Objective Weight (Kilograms): 51.000 Accuchecks BSG (last 24hrs): Test 01/16/17 21:25 01/16/17 23:24 01/17/17 01:36 01/17/17 02:04 Random Glucose 401 mg/dl (70-99) 218 mg/dl (70-99) Bedside Glucose 303 mg/dl (70-90) 222 mg/dl (70-90) Test 01/17/17 02:53 01/17/17 03:53 01/17/17 04:14 01/17/17 04:58 Bedside Glucose 197 mg/dl (70-90) 175 mg/dl (70-90) 190 mg/dl (70-90) Random Glucose 265 mg/dl (70-99) Test 01/17/17 06:02 01/17/17 07:44 01/17/17 08:07 01/17/17 09:52 Bedside Glucose 207 mg/dl (70-90) 215 mg/dl (70-90) 210 mg/dl (70-90) Random Glucose 224 mg/dl (70-99) Test 01/17/17 12:04 01/17/17 12:45 01/17/17 13:50 01/17/17 16:30 Bedside Glucose 198 mg/dl (70-90) 190 mg/dl (70-90) Random Glucose 208 mg/dl (70-99) Laboratory Data (last 24hrs) Test 01/16/17 21:25 01/17/17 02:04 01/17/17 04:14 01/17/17 08:07 Anion Gap 22.0 mmol/L 17.0 mmol/L 18.0 mmol/L 15.0 mmol/L BUN/Creatinine Ratio 11.1 15.5 12.3 9.4 Blood Urea Nitrogen 11 mg/dl 9 mg/dl 8 mg/dl 7 mg/dl Creatinine 0.98 mg/dl 0.60 mg/dl 0.67 mg/dl 0.69 mg/dl Potassium Level 5.8 mmol/L 4.6 mmol/L 4.6 mmol/L 4.2 mmol/L Sodium Level 131 mmol/L 137 mmol/L 136 mmol/L 135 mmol/L White Blood Count 33.22 K/uL Red Blood Count 4.98 M/uL Hemoglobin 17.6 g/dL Hematocrit 49.7 % Mean Corpuscular Volume 99.8 fL Mean Corpuscular Hemoglobin 35.3 pg Mean Corpuscular Hemoglobin Concent 35.4 g/dl Platelet Count 268 K/uL Mean Platelet Volume 10.6 fL Neutrophils (%) (Auto) 89.1 % Lymphocytes (%) (Auto) 3.2 % Monocytes (%) (Auto) 7.0 % Eosinophils (%) (Auto) 0.1 % Basophils (%) (Auto) 0.1 % Neutrophils # (Auto) 29.61 K/uL Lymphocytes # (Auto) 1.06 K/uL Monocytes # (Auto) 2.34 K/uL Eosinophils # (Auto) 0.02 K/uL Basophils # (Auto) 0.03 K/uL Hemoglobin A1c 11.3 % Test 01/17/17 12:45 01/17/17 16:30 Anion Gap 13.0 mmol/L BUN/Creatinine Ratio 9.3 Blood Urea Nitrogen 5 mg/dl Creatinine 0.56 mg/dl Potassium Level 3.9 mmol/L Sodium Level 137 mmol/L HbA1c Test 01/17/17 04:14 Hemoglobin A1c 11.3 % (4.5-5.6) H Recent Pertinent Medications Outpatient Anti-diabetic Regimen: * Metformin ER 1g PO BID * A1c = 11.3 % 01/17/17 The patient is currently receiving: * Insulin drip per protocol * Oral Agents: on hold Risk Factors for Insulin Resistance: * Infection: leukocytosis, r/o infection - received Levaquin in ER Assessment & Plan ASSESSMENT: * 36 yr old T2DM female admitted with DKA * Labs on admission: anion gap 22, bicarb 5, pH 6.98, beta-hydroxybutyric acid 130 * Pt is maintained on oral antidiabetic agents as an outpatient (inadequate given A1c of 11.3%) * Will hold oral agents for admission and utilize SQ basal bolus insulin regimen which is the recommended regimen for inpatient glycemic control. * Will continue on IV insulin protocol and transition to weight based basal/ bolus insulin regimen once labs DKA resolves * ADA & AACE recommend a goal blood sugar range 140-180 mg/dl for the majority of critically ill & non-critically ill patients. However, more stringent targets may be selected in individual cases. PLAN FOR INPATIENT GLYCEMIC CONTROL: * Continue IV insulin infusion protocol until DKA resolves * In the critical care setting, continuous IV insulin infusion has been shown to be the best method for achieving glycemic targets. * Initial goal range 150 - 250 mg/dL -> change to 140 - 180 mg/dL * Pending order to change fluids to contain dextrose when BSG is less than 200 mg/dL * Holding outpatient oral diabetes medications * If transition to basal/bolus regimen is desired this evening, I would recommend the following based on current BSG data: * Lantus 18 units x 1, then 10 units SQ BID (ensure minimum of 8 hours between loading dose and initial dose of 10 units) * Bolus insulin with Novolog per scale ACHS or Q6hrs while NPO - Goal Range: Low 140 mg/dL - High 180 mg/dL - Correction Factor: 40 mg/dL/unit - Nutritional / Prandial insulin per carb ratio of 1 unit per 10 grams CHO consumed - Add 00 and 04 checks with coverage * Please note that the plan above was derived based on current level of insulin resistance and hospital stress. These recommendations are appropriate for inpatient admission only. Plan of care upon discharge will need to be reassessed to avoid potential outpatient hypo/hyperglycemia. Thank you.
[2017-01-17 16:59] LABS: BUN/CREATININE RATIO 9.6 (10-20); CREATININE 0.5 mg/dl (0.60-1.20); MAGNESIUM 2.1 mg/dl (1.8-2.4); POTASSIUM 3.7 mmol/L (3.5-5.1)
[2017-01-17] MEDS ORDERED: BOOST BREEZE NUTRITION DRINK 1 BOX PO PRN (17:00)
[2017-01-17] MEDS ORDERED: PENDING D5 1/2NS+20mEq KCL IVF SCH (17:00)
[2017-01-17 17:25] LABS: PHOSPHORUS 1.3 mg/dl (2.5-4.9)
[2017-01-17] MEDS ORDERED: INSULIN GLARGINE SOLOSTAR 100 UNITS/ML 3 ML PEN SC ONE (18:15)
[2017-01-17] MEDS ORDERED: HYDROmorphone INJ 0.5 MG/0.5 ML SYR IV STA (20:37)
[2017-01-17 20:41] LABS: BLOOD UREA NITROGEN 4 mg/dl (7-18); BUN/CREATININE RATIO 9.3 (10-20); CALCIUM 8.9 mg/dl (8.5-10.1); CARBON DIOXIDE 16 mmol/L (21-32); CHLORIDE 109 mmol/L (98-107); CREATININE 0.41 mg/dl (0.60-1.20); GLUCOSE 189 mg/dl (70-99); MAGNESIUM 1.9 mg/dl (1.8-2.4); POTASSIUM 3.5 mmol/L (3.5-5.1); SODIUM 139 mmol/L (136-145)
[2017-01-17 21:11] LABS: PHOSPHORUS 1.9 mg/dl (2.5-4.9)
[2017-01-18] VITALS (9 sets, daily range): BP systolic 99–145; BP diastolic 36–85; PULSE 67–77; TEMP 36.6–37; O2SAT 95–100
[2017-01-18] MEDS ORDERED: DC IV INSULIN INFUSION ONE
[2017-01-18] MEDS: OXYCODONE HCL IR 5 MG TAB (IMMEDIATE RELEASE) PO PRN ×3 (01:09→14:24)
[2017-01-18] MEDS: INSULIN ASPART 100 UNITS/ML 3 ML PEN SC SCH ×5 (03:53→21:00)
[2017-01-18 06:20] LABS: BLOOD UREA NITROGEN 5 mg/dl (7-18); BUN/CREATININE RATIO 16.7 (10-20); CALCIUM 8.7 mg/dl (8.5-10.1); CARBON DIOXIDE 23 mmol/L (21-32); CHLORIDE 107 mmol/L (98-107); CREATININE 0.27 mg/dl (0.60-1.20); GLUCOSE 119 mg/dl (70-99); MAGNESIUM 1.8 mg/dl (1.8-2.4); PHOSPHORUS 1.8 mg/dl (2.5-4.9); POTASSIUM 2.8 mmol/L (3.5-5.1); SODIUM 139 mmol/L (136-145)
[2017-01-18 07:34] LABS: HEMATOCRIT 36.4 % (37-47); MEAN CELL VOLUME 91.7 fL (80-100); MEAN CORPUSCULAR HEMOGLOBIN 33.8 pg (25-34); MEAN CORPUSCULAR HGB CONC 36.8 g/dl (32-36); MEAN PLATELET VOLUME 10.4 fL (7.4-10.4); PLATELET COUNT 139 K/uL (130-400); RED BLOOD COUNT 3.97 M/uL (4.2-5.4); WHITE BLOOD COUNT 7.74 K/uL (4.8-10.8)
[2017-01-18 07:35] LABS: PLT ESTIMATE NORMAL
[2017-01-18] MEDS ORDERED: MAGNESIUM OXIDE 400 MG TAB PO ONE (07:57)
[2017-01-18] MEDS: ENOXAPARIN 30 MG/0.3 ML SYR SQ SCH (08:01)
[2017-01-18] MEDS: INSULIN GLARGINE SOLOSTAR 100 UNITS/ML 3 ML PEN SC SCH ×2 (08:11→20:50)
--- NOTE | 2017-01-18 08:11 | Critical Care Progress Note ---
Critical Care Progress Note Date of Service Jan 18, 2017. ICU Day ICU Day Number: [address] Stevens Subjective Sleeping in room, no events overnight Objective Physical Exam: General - NAD, Resting comfortably in bed Eyes - PERRL, EOMI No icterus, gaze conjugate ENT -moist mucous membranes Neck - Supple, trachea midline, no masses or lymphadenopathy, Lungs - No paradoxical chest wall movement, clear to auscultation bilaterally, no wheezes, rales, or rhonchi Heart - Reg rate and rhythm, No murmur, rubs, clicks, or gallops appreciated Abdomen - soft, tender however with distraction no significant tenderness Extremities - No edema, pedal pulses intact Neuro - A&O X 4 Strength extremities equal and appropriate bilaterally Reflexes: normal and equal CN:PERRL, EOMI, no facial asymmetry, uvula/tongue midline Current SOFA Score SOFA Score Response (Comments) Value Platelets (x10) < 150 1 Bilirubin (mg/dL) < 1.2 0 [place] Coma Score 15 0 Level of Hypotension No Hypotension 0 Creatinine (mg/dL) < 1.2 0 Total 1 Previous SOFA Scores 0 01/17/2017 Assessment & Plan (1) Dehydration (2) Acute on chronic pancreatitis (3) Acute abdominal pain (4) DKA (diabetic ketoacidoses) (5) Type 2 diabetes mellitus with hyperglycemia (6) Metabolic acidosis (7) Hyponatremia (8) Hypophosphatemia (9) Hyperchloremia (10) Transaminitis (11) Hyperkalemia Diabetic ketoacidosis resolved PLAN: Neuro: Pain significantly improved, 1 oxycodone 5 mg IR by mouth every 6 hours when necessary severe pain, * 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 I have also advised her that she cannot drive until cleared by an rubber flap cutter as she is starting insulin for the first time. 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 Stable [facility] Consults & Procedures Consultants: Not applicable Procedures: Not applicable Data Medications: Current Inpatient Medications Medications (Trade) Dose Ordered Sig/Trino Route Start Time Stop Time Status Last Admin Dose Admin Ioversol (Optiray 320) 100 ml UD PRN IV 01/16/17 23:30 01/20/17 23:29 Miscellaneous Information (Consult Glycemic Management Pharmacy) 1 ea UD PRN N/A 01/17/17 00:00 02/16/17 00:00 Glucose (Glucose 40% Gel) UD PRN PO 01/17/17 00:15 02/16/17 00:14 Glucose (Glucose Chew Tab) 1 tabs UD PRN PO 01/17/17 00:15 02/16/17 00:14 Dextrose (Dextrose 50% 50ML Syringe) 50 ml UD PRN IV 01/17/17 00:15 02/16/17 00:14 Glucagon (Glucagon Inj) 1 mg UD PRN SQ 01/17/17 00:15 02/16/17 00:14 Acetaminophen (Tylenol Tab) 650 mg Q4H PRN PO 01/17/17 00:45 02/16/17 00:44 Diphenhydramine HCl (Benadryl Cap) 75 mg HS PRN PO 01/17/17 01:00 02/16/17 00:59 Enteral Nutritional Formula (Boost Breeze Nutritional Drink) 1 box BID PRN PO 01/17/17 17:00 02/16/17 16:59 Oxycodone HCl (Roxicodone Immediate Rel Tab) 5 mg Q6H PRN PO 01/17/17 17:30 01/31/17 17:29 01/18/17 01:09 5 MG Insulin Glargine (Lantus Solostar Pen) 10 units Q12 SC 01/18/17 09:00 02/17/17 08:59 Insulin Aspart (novoLOG ASPART) ACHS SC 01/17/17 21:00 02/16/17 20:59 Enoxaparin Sodium (Lovenox Inj) 30 mg DAILY SQ 01/18/17 09:00 02/17/17 08:59 Vital Signs: Date Time Temp Pulse Resp B/P (MAP) Pulse Ox O2 Delivery O2 Flow Rate FiO2 01/18/17 05:01 71 22 97 01/18/17 04:01 37.0 67 18 113/81 99 01/18/17 04:01 67 18 113/81 99 01/18/17 04:00 97 Room Air 01/18/17 02:01 73 23 145/85 100 01/17/17 23:59 97 Room Air 01/17/17 23:32 37.1 85 16 121/76 97 01/17/17 21:43 91 20 132/82 01/17/17 20:00 37.6 88 14 01/17/17 20:00 97 Room Air 01/17/17 18:00 93 18 97 Room Air 01/17/17 16:00 Room Air 01/17/17 16:00 102 18 120/77 (91) 97 Room Air 01/17/17 14:00 97 16 113/62 (79) 99 Room Air 01/17/17 13:00 91 25 100 01/17/17 12:01 101 18 124/80 (92) 100 01/17/17 12:00 93 20 100 01/17/17 11:30 Room Air 01/17/17 11:30 37.0 90 16 108/65 (79) 99 Room Air 01/17/17 11:01 90 9 109/65 (69) 98 01/17/17 11:00 88 5 99 01/17/17 10:01 90 19 105/63 (71) 100 01/17/17 10:00 88 25 100 01/17/17 09:30 36.4 98 15 102/68 (79) 99 Room Air 01/17/17 09:01 90 3 102/68 (80) 99 01/17/17 09:00 90 0 99 01/17/17 08:51 93 0 102/62 (76) 98 01/17/17 08:00 95 13 99 01/17/17 08:00 Room Air Laboratory Results: Last 24 Hours Test 01/17/17 08:07 01/17/17 09:52 01/17/17 12:04 01/17/17 12:45 Venous Blood pH 7.25 7.32 Sodium Level 135 mmol/L 137 mmol/L Potassium Level 4.2 mmol/L 3.9 mmol/L Chloride Level 108 mmol/L 111 mmol/L Carbon Dioxide Level 12 mmol/L 13 mmol/L Anion Gap 15.0 mmol/L 13.0 mmol/L Blood Urea Nitrogen 7 mg/dl 5 mg/dl Creatinine 0.69 mg/dl 0.56 mg/dl Est Creatinine Clear Calc Drug Dose 90.0 ml/min 110.9 ml/min Estimated GFR () 130.7 140.0 Estimated GFR (Non- 112.8 120.8 BUN/Creatinine Ratio 9.4 9.3 Random Glucose 224 mg/dl 208 mg/dl Calcium Level 8.9 mg/dl 8.7 mg/dl Phosphorus Level 2.0 mg/dl 1.6 mg/dl Magnesium Level 2.2 mg/dl 2.1 mg/dl Bedside Glucose 210 mg/dl 198 mg/dl Test 01/17/17 13:50 01/17/17 16:30 01/17/17 19:40 01/17/17 19:57 Bedside Glucose 190 mg/dl 170 mg/dl Venous Blood pH 7.39 7.38 Sodium Level 137 mmol/L 139 mmol/L Potassium Level 3.7 mmol/L 3.5 mmol/L Chloride Level 111 mmol/L 109 mmol/L Carbon Dioxide Level 15 mmol/L 16 mmol/L Anion Gap 11.0 mmol/L 14.0 mmol/L Blood Urea Nitrogen 5 mg/dl 4 mg/dl Creatinine 0.50 mg/dl 0.41 mg/dl Est Creatinine Clear Calc Drug Dose 124.2 ml/min 151.5 ml/min Estimated GFR () 145.3 > 150.0 Estimated GFR (Non- 125.4 133.9 BUN/Creatinine Ratio 9.6 9.3 Random Glucose 201 mg/dl 189 mg/dl Calcium Level 9.0 mg/dl 8.9 mg/dl Phosphorus Level 1.3 mg/dl 1.9 mg/dl Magnesium Level 2.1 mg/dl 1.9 mg/dl Test 01/17/17 23:33 01/18/17 03:51 01/18/17 05:24 01/18/17 06:36 Bedside Glucose 150 mg/dl 110 mg/dl Venous Blood pH 7.42 Sodium Level 139 mmol/L Potassium Level 2.8 mmol/L Chloride Level 107 mmol/L Carbon Dioxide Level 23 mmol/L Anion Gap 9.0 mmol/L Blood Urea Nitrogen 5 mg/dl Creatinine 0.27 mg/dl Est Creatinine Clear Calc Drug Dose 230.1 ml/min Estimated GFR () > 150.0 Estimated GFR (Non- > 150.0 BUN/Creatinine Ratio 16.7 Random Glucose 119 mg/dl Calcium Level 8.7 mg/dl Phosphorus Level 1.8 mg/dl Magnesium Level 1.8 mg/dl White Blood Count 7.74 K/uL Red Blood Count 3.97 M/uL Hemoglobin 13.4 g/dL Hematocrit 36.4 % Mean Corpuscular Volume 91.7 fL Mean Corpuscular Hemoglobin 33.8 pg Mean Corpuscular Hemoglobin Concent 36.8 g/dl RDW Standard Deviation 41.6 fL RDW Coefficient of Variation 12.3 % Platelet Count 139 K/uL Mean Platelet Volume 10.4 fL Platelet Estimate NORMAL Problem Qualifiers (1) DKA (diabetic ketoacidoses): Diabetes mellitus type: type 2 Diabetes mellitus complication detail: without coma Qualified Codes: E13.10 - Other specified diabetes mellitus with ketoacidosis without coma
[2017-01-18] MEDS: POT PHOSPHATE MONOBASIC W/ SOD TAB PO SCH ×2 (08:21→12:15)
[2017-01-18] MEDS ORDERED: NURSING VERBAL MED ORDER ONE ×2 (10:30→17:45)
[2017-01-18] MEDS: ONDANSETRON INJ 2 MG/ML 2 ML VIAL IV PRN ×2 (11:10→16:16)
--- NOTE | 2017-01-18 13:30 | Pharmacy Progress Note ---
Glycemic Control Progress Note Date of Service Jan 18, 2017. Scope Glycemic Pharmacist consulted for glycemic control to write orders per [facility] inpatient glycemic control protocol. Objective Accuchecks BSG (last 24hrs): Test 01/17/17 13:50 01/17/17 16:30 01/17/17 19:40 01/17/17 19:57 Bedside Glucose 190 mg/dl (70-90) 170 mg/dl (70-90) Random Glucose 201 mg/dl (70-99) 189 mg/dl (70-99) Test 01/17/17 23:33 01/18/17 03:51 01/18/17 05:24 01/18/17 11:08 Bedside Glucose 150 mg/dl (70-90) 110 mg/dl (70-90) 140 mg/dl (70-90) Random Glucose 119 mg/dl (70-99) HbA1c: Test 01/17/17 04:14 Hemoglobin A1c 11.3 % (4.5-5.6) H Recent Pertinent Medications Outpatient Anti-diabetic Regimen: * Metformin ER 1g PO BID The patient is currently receiving: * Basal insulin: Lantus 25 units x 1, then 10 units SQ BID * Bolus insulin: Novolog per scale ACHS Goal range: 140 - 180 mg/dL Correction factor: 30 Carb ratio: 1 units for every 10 grams of carbohydrate * Oral Agents: on hold Assessment & Plan ASSESSMENT: Initial: * 36 yr old T2DM female admitted with DKA * Labs on admission: anion gap 22, bicarb 5, pH 6.98, beta-hydroxybutyric acid 130 * Pt is maintained on oral antidiabetic agents as an outpatient (inadequate given A1c of 11.3%) * Will hold oral agents for admission and utilize SQ basal bolus insulin regimen which is the recommended regimen for inpatient glycemic control. * Will continue on IV insulin protocol and transition to weight based basal/ bolus insulin regimen once labs DKA resolves * ADA & AACE recommend a goal blood sugar range 140-180 mg/dl for the majority of critically ill & non-critically ill patients. However, more stringent targets may be selected in individual cases. 01/18/17 * Patient was transitioned off insulin infusion last evening. * Glycemic control is significantly improved today. BSGs ranging 110 to 224 over the past 24hrs * Risk factors for insulin resistance remain constant. No changes warranted at this time. PLAN FOR INPATIENT GLYCEMIC CONTROL: * Holding outpatient oral diabetes medications * Continue Lantus 10 units SQ BID * Continue Bolus insulin with Novolog per scale ACHS - Goal Range: Low 140 mg/dL - High 180 mg/dL - Correction Factor: 30 mg/dL/unit - Nutritional / Prandial insulin per carb ratio of 1 unit per 10 grams CHO consumed DISCHARGE RECOMMENDATIONS: * Poor outpatient control evidence by A1c of 11.3% * Recommend continuing metformin ER 1000 mg PO BID on discharge * Recommend discharging on basal + mealtime insulin for A1c > 10% * Exact doses to be determined once additional BSG data on Lantus is available and after CDE interviews patient * Please note that the plan above was derived based on current level of insulin resistance and hospital stress. These recommendations are appropriate for inpatient admission only. Plan of care upon discharge will need to be reassessed to avoid potential outpatient hypo/hyperglycemia. Thank you.
[2017-01-18] MEDS ORDERED: HYDROmorphone INJ 0.5 MG/0.5 ML SYR IV PRN (18:15)
--- NOTE | 2017-01-18 19:23 | Hospitalist Progress Note ---
Hospitalist Progress Note Date of Service Jan 18, 2017. Subjective Patient's abdominal pain is improving has a history of chronic pancreatitis and multiple admissions for pancreatitis. Objective Vital Signs Date Time Temp Pulse Resp B/P (MAP) Pulse Ox O2 Delivery O2 Flow Rate FiO2 01/18/17 16:00 Room Air 01/18/17 15:59 36.8 69 18 100/63 (75) 98 Room Air 01/18/17 09:47 36.7 72 16 106/36 (59) 96 Room Air 01/18/17 09:47 Room Air 01/18/17 09:27 36.6 77 20 99 01/18/17 08:00 99 Room Air 01/18/17 08:00 36.6 77 20 126/83 (97) 99 Room Air 01/18/17 05:01 71 22 97 01/18/17 04:01 37.0 67 18 113/81 99 01/18/17 04:01 67 18 113/81 99 01/18/17 04:00 97 Room Air 01/18/17 02:01 73 23 145/85 100 01/17/17 23:59 97 Room Air 01/17/17 23:32 37.1 85 16 121/76 97 01/17/17 21:43 91 20 132/82 01/17/17 20:00 37.6 88 14 01/17/17 20:00 97 Room Air Physical Exam General Appearance: no apparent distress ENT: hearing grossly normal Neck: trachea midline Respiratory/Chest: lungs clear Cardiovascular: regular rate, rhythm Abdomen: normal bowel sounds, + tenderness Extremities: normal range of motion Neurologic/Psychiatric: alert Laboratory Results Last 24 Hours Test 01/17/17 19:40 01/17/17 19:57 01/17/17 23:33 01/18/17 03:51 Bedside Glucose 170 mg/dl 150 mg/dl 110 mg/dl Venous Blood pH 7.38 Sodium Level 139 mmol/L Potassium Level 3.5 mmol/L Chloride Level 109 mmol/L Carbon Dioxide Level 16 mmol/L Anion Gap 14.0 mmol/L Blood Urea Nitrogen 4 mg/dl Creatinine 0.41 mg/dl Est Creatinine Clear Calc Drug Dose 151.5 ml/min Estimated GFR () > 150.0 Estimated GFR (Non- 133.9 BUN/Creatinine Ratio 9.3 Random Glucose 189 mg/dl Calcium Level 8.9 mg/dl Phosphorus Level 1.9 mg/dl Magnesium Level 1.9 mg/dl Test 01/18/17 05:24 01/18/17 06:36 01/18/17 11:08 01/18/17 16:35 Venous Blood pH 7.42 Sodium Level 139 mmol/L Potassium Level 2.8 mmol/L Chloride Level 107 mmol/L Carbon Dioxide Level 23 mmol/L Anion Gap 9.0 mmol/L Blood Urea Nitrogen 5 mg/dl Creatinine 0.27 mg/dl Est Creatinine Clear Calc Drug Dose 230.1 ml/min Estimated GFR () > 150.0 Estimated GFR (Non- > 150.0 BUN/Creatinine Ratio 16.7 Random Glucose 119 mg/dl Calcium Level 8.7 mg/dl Phosphorus Level 1.8 mg/dl Magnesium Level 1.8 mg/dl White Blood Count 7.74 K/uL Red Blood Count 3.97 M/uL Hemoglobin 13.4 g/dL Hematocrit 36.4 % Mean Corpuscular Volume 91.7 fL Mean Corpuscular Hemoglobin 33.8 pg Mean Corpuscular Hemoglobin Concent 36.8 g/dl RDW Standard Deviation 41.6 fL RDW Coefficient of Variation 12.3 % Platelet Count 139 K/uL Mean Platelet Volume 10.4 fL Platelet Estimate NORMAL Bedside Glucose 140 mg/dl 154 mg/dl Assessment and Plan (1) DKA (diabetic ketoacidoses) Assessment & Plan: Resolved patient off insulin drip pharmacy managing will need endocrinology as an outpatient insulin is needed to her. She was diabetic prior to admission, however she will require insulin training. (2) Pancreatitis Assessment & Plan: Improving continue pain medications advanced diet as tolerated (3) Abdominal pain Problem Qualifiers (1) DKA (diabetic ketoacidoses): Diabetes mellitus type: type 2 Diabetes mellitus complication detail: without coma Qualified Codes: E13.10 - Other specified diabetes mellitus with ketoacidosis without coma
--- NOTE | 2017-01-18 19:40 | Gastrointestinal Consultation ---
Gastrointestinal Consultation Date of Consultation: Jan 18, 2017 Attending Physician: Delvin Cummins MD Consulting Physician: Delvin Gibson MD Reason for Consultation: abdominal pain History of Present Illness Patient is a 36 year old female with CC of abdominal pain HPI Pt with recurrent idiopathic pancreatitis on creon. She is s/p anushka, MRCP 06/2016 no definite lesions (abrupt cut off of bile duct but not dilated and nl PD). She was offered EUS 06/2016 but forgot about it until I asked about it. She states had EGD in [place] 6 mos ago. Admitted with abd pain, n/v worse than usual and new DKA requiring insulin. Abd pain and n/v was improving but today post solid food had abd pain and more nausea. Stools alternate between diarrhea and constipation. No previous colonoscopy. EGD by Dr Sharma 10/2014 irregular mucosa of vocal cord. CT a/p this admit s/p anushka, pancreas atrophy, distended,fluid filled stomach, lung base opacity ? PE. CTA chest negative. Lipase normal. LFTs have been more elevated in past (noted admit 09/2016) than on admit and are improving. NO bloody nor black stools. Past Medical/Surgical History Medical Problems: (1) Abdominal pain Status: Acute (2) Acute abdominal pain Status: Acute (3) Attn Defic Nonhyperact Status: Chronic (4) Back pain Status: Acute (5) Bilateral pneumonia Status: Acute (6) Dehydration Status: Acute (7) Diabetes Status: Chronic (8) DKA (diabetic ketoacidoses) Status: Acute (9) Epigastric discomfort Status: Acute (10) History of pancreatitis Status: Acute (11) History of pancreatitis Status: Acute (12) Hyperglycemia Status: Acute (13) Marijuana use Status: Acute (14) Mid back pain Status: Acute (15) MRSA Status: Chronic (16) Polycystic Ovaries Status: Chronic (17) Transaminitis Status: Acute (18) Urinary tract infection Status: Acute (19) Vomiting Status: Acute Family History Diabetes mellitus Heart disease Social History Smoking Status: Current Every Day Smoker (1ppd x 17yrs) Alcohol Use: none Drug Use: none Marital Status: Housing Status: lives with family 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[employer]) 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 Coded Allergies: Penicillins (Verified Allergy, Severe, ANAPHYLAXIS, 01/16/17) Clindamycin (Verified Allergy, Mild, RASH, 01/16/17) Methylphenidate (Verified Adverse Reaction, Mild, NAUSEA, 01/16/17) Current Medications Home Meds and Scripts Medications Dose Route/Sig Max Daily Dose Days Date Category Zofran Odt (Ondansetron HCl) 4 Mg Tab 4 Mg SL Q4 01/15/17 Rx Phenergan (Promethazine HCl) 25 Mg Tab 25 Mg PO Q6H PRN 10/03/16 Reported Ondansetron HCl (Ondansetron) 8 Mg Tab 8 Mg PO TID PRN 09/30/16 Reported Tramadol HCl 50 Mg Tab 50-100 Mg PO Q4H PRN 09/30/16 Reported Benadryl Allergy (Diphenhydramine Hcl) 25 Mg Cap 75 Mg PO HS PRN 01/07/16 Reported Glucophage Er (Metformin HCl) 500 Mg Tab 1,000 Mg PO BID 01/07/16 Reported Creon [id number] (Pancrelipase (Lipase-Protease-) 1 Cap Cap 36,000 Units PO QID 04/11/15 Reported Review of Systems ROS 10 systems reviewed negative except as above. Physical Exam Date Time Temp Pulse Resp B/P (MAP) Pulse Ox O2 Delivery O2 Flow Rate FiO2 01/18/17 16:00 Room Air 01/18/17 15:59 36.8 69 18 100/63 (75) 98 Room Air 01/18/17 09:47 36.7 72 16 106/36 (59) 96 Room Air 01/18/17 09:47 Room Air 01/18/17 09:27 36.6 77 20 99 01/18/17 08:00 99 Room Air 01/18/17 08:00 36.6 77 20 126/83 (97) 99 Room Air 01/18/17 05:01 71 22 97 01/18/17 04:01 37.0 67 18 113/81 99 01/18/17 04:01 67 18 113/81 99 01/18/17 04:00 97 Room Air 01/18/17 02:01 73 23 145/85 100 01/17/17 23:59 97 Room Air 01/17/17 23:32 37.1 85 16 121/76 97 01/17/17 21:43 91 20 132/82 01/17/17 20:00 37.6 88 14 01/17/17 20:00 97 Room Air General Appearance: WD/WN, no apparent distress Neck: supple, no adenopathy Respiratory/Chest: lungs clear, no respiratory distress Cardiovascular: no edema, no murmur Abdomen: normal bowel sounds, non tender, soft, no organomegaly, no pulsatile mass Extremities: normal range of motion, normal inspection 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, oriented x 3 Skin: normal color Laboratory Results Last 24 Hours Test 01/17/17 19:40 01/17/17 19:57 01/17/17 23:33 01/18/17 03:51 Bedside Glucose 170 mg/dl 150 mg/dl 110 mg/dl Venous Blood pH 7.38 Sodium Level 139 mmol/L Potassium Level 3.5 mmol/L Chloride Level 109 mmol/L Carbon Dioxide Level 16 mmol/L Anion Gap 14.0 mmol/L Blood Urea Nitrogen 4 mg/dl Creatinine 0.41 mg/dl Est Creatinine Clear Calc Drug Dose 151.5 ml/min Estimated GFR () > 150.0 Estimated GFR (Non- 133.9 BUN/Creatinine Ratio 9.3 Random Glucose 189 mg/dl Calcium Level 8.9 mg/dl Phosphorus Level 1.9 mg/dl Magnesium Level 1.9 mg/dl Test 01/18/17 05:24 01/18/17 06:36 01/18/17 11:08 01/18/17 16:35 Venous Blood pH 7.42 Sodium Level 139 mmol/L Potassium Level 2.8 mmol/L Chloride Level 107 mmol/L Carbon Dioxide Level 23 mmol/L Anion Gap 9.0 mmol/L Blood Urea Nitrogen 5 mg/dl Creatinine 0.27 mg/dl Est Creatinine Clear Calc Drug Dose 230.1 ml/min Estimated GFR () > 150.0 Estimated GFR (Non- > 150.0 BUN/Creatinine Ratio 16.7 Random Glucose 119 mg/dl Calcium Level 8.7 mg/dl Phosphorus Level 1.8 mg/dl Magnesium Level 1.8 mg/dl White Blood Count 7.74 K/uL Red Blood Count 3.97 M/uL Hemoglobin 13.4 g/dL Hematocrit 36.4 % Mean Corpuscular Volume 91.7 fL Mean Corpuscular Hemoglobin 33.8 pg Mean Corpuscular Hemoglobin Concent 36.8 g/dl RDW Standard Deviation 41.6 fL RDW Coefficient of Variation 12.3 % Platelet Count 139 K/uL Mean Platelet Volume 10.4 fL Platelet Estimate NORMAL Bedside Glucose 140 mg/dl 154 mg/dl Impression Abdominal pain Nausea and vomiting Abnl CT --distended, fluid filled stomach Idiopathic pancreatitis elevated LFTs Plan Offered EGD vs UGI to rule out gastric outlet obstruction but patient declines. She want to reintroduce diet and see how she does. For elevated LFTS and recurrent pancreatitis recommend elective EUS and she is thinking about that.
[2017-01-18] MEDS ORDERED: MAGNESIUM OXIDE 400 MG TAB PO SCH (21:00)
[2017-01-19] VITALS: O2SAT 99
[2017-01-19] MEDS: ONDANSETRON INJ 2 MG/ML 2 ML VIAL IV PRN ×3 (00:53→11:50)
[2017-01-19 07:35] VITALS: BP 104/65; PULSE 56; TEMP 36.3; O2SAT 97
[2017-01-19] MEDS: ENOXAPARIN 30 MG/0.3 ML SYR SQ SCH (07:45)
[2017-01-19 08:08] LABS: ALB/GLOB RATIO 0.9 (0.9-2); ALKALINE PHOSPHATASE 213 U/L (45-117); ALT/SGPT 102 U/L (12-78); AST/SGOT 108 U/L (15-37); BLOOD UREA NITROGEN 9 mg/dl (7-18); CALCIUM 8.9 mg/dl (8.5-10.1); CARBON DIOXIDE 29 mmol/L (21-32); CHLORIDE 100 mmol/L (98-107); CREATININE 0.23 mg/dl (0.60-1.20); GLUCOSE 169 mg/dl (70-99); POTASSIUM 2.9 mmol/L (3.5-5.1); SODIUM 139 mmol/L (136-145)
[2017-01-19] MEDS ORDERED: POTASSIUM CHLORIDE 10 MEQ TABCR PO STA (08:15)
[2017-01-19] MEDS: INSULIN GLARGINE SOLOSTAR 100 UNITS/ML 3 ML PEN SC SCH (08:51)
[2017-01-19] MEDS: INSULIN ASPART 100 UNITS/ML 3 ML PEN SC SCH ×2 (08:52→13:14)
[2017-01-19 09:24] LABS: BASO % 0.2 %; BASO ABS # 0.01 K/uL (0-0.2); COMPLETE YES; EOS % 1.1 %; HEMATOCRIT 35.4 % (37-47); IG% 0.2 %; LYMPH % 47.6 %; LYMPH ABS # 2.53 K/uL (1.2-3.4); MEAN CELL VOLUME 91.7 fL (80-100); MEAN CORPUSCULAR HEMOGLOBIN 33.4 pg (25-34); MEAN CORPUSCULAR HGB CONC 36.4 g/dl (32-36); MEAN PLATELET VOLUME 10.4 fL (7.4-10.4); MONO % 5.8 %; NEUT % 45.1 %; PLATELET COUNT 137 K/uL (130-400); RED BLOOD COUNT 3.86 M/uL (4.2-5.4); WHITE BLOOD COUNT 5.32 K/uL (4.8-10.8)
--- NOTE | 2017-01-19 10:58 | Pharmacy Progress Note ---
Glycemic Control Progress Note Date of Service Jan 19, 2017. Scope Glycemic Pharmacist consulted for glycemic control to write orders per [facility] inpatient glycemic control protocol. Objective Accuchecks BSG (last 24hrs): Test 01/18/17 11:08 01/18/17 16:35 01/18/17 20:08 01/19/17 07:04 Bedside Glucose 140 mg/dl (70-90) 154 mg/dl (70-90) 169 mg/dl (70-90) Random Glucose 169 mg/dl (70-99) Test 01/19/17 07:26 Bedside Glucose 163 mg/dl (70-90) HbA1c: Test 01/17/17 04:14 Hemoglobin A1c 11.3 % (4.5-5.6) H Recent Pertinent Medications The patient is currently receiving: * Basal insulin: Lantus 10 units every 12 hours * Correctional Insulin: Novolog Correction per scale ACHS Goal Range: Low 140 mg/dL - High 180 mg/dL Correction Factor: 30 mg/dL/unit * Prandial insulin: Per carb ratio of 1 unit per 10 grams CHO consumed * Oral Agents: On hold for admission Outpatient Anti-Diabetic Meds Oral Agent - metformin Assessment & Plan ASSESSMENT: * See progress note from 01/18/17 for more background info, in short: * Pt receiving SQ basal bolus insulin regimen for hyperglycemia secondary to baseline DM (outpatient regimen on hold), DKA, pancreatitis * Patient is currently receiving an average of 25 units of insulin per day * 20 units of basal insulin * 5 units of prandial/correctional insulin {low doses secondary to NPO and no CHO coverage given} * BSGs ranging 110 - 169 mg/dl over the past 24hrs * Changes needed to insulin regimen: * AM Fasting BSG = 163 mg/dl. This is slightly above goal range for patient based on inpatient targets and co-morbidities. Therefore Basal insulin needs increased. AM fasting BSG in range when Lantus 25 units given to transition off insulin drip. Order then changed to Lantus 10 BID which may not be sufficient dosing. * Unable to assess current CF/CR as patient NPO. Diet advancing today. Current parameters are based on weight/high stress and consistent with current basal insulin dosing. Will continue current orders and re-evaluate tomorrow based on BSG trends * Total daily dose = 25 units. Expect this to almost double with resuming diet PLAN FOR INPATIENT GLYCEMIC CONTROL: * Oral Agents * Diet advanced, patient ready for discharge --> will resume metformin 1,000mg PO BIDM * Received contrast 01/16 --> ok to resume metformin since 48hrs+ after contrast * Basal insulin: Increase & change to once daily dosing for transition to outpatient * Lantus 25 units SQ daily in AM * Pt already received 10 units this morning therefore, will give additional 15 units with lunch for a total of 25 units this AM * Bolus insulin: No change * NovoLog per scale ACHS or Q6hrs while NPO * Goal Range: Low 110 mg/dL - High 140 mg/dL {lower goal range to more stringent target based on age/co-morbidities/resuming diet} * Correction Factor: 30 mg/dL/unit * Nutritional / Prandial insulin per carb ratio of 1 unit per 10 grams CHO consumed RECOMMENDATIONS FOR DISCHARGE: * Poor outpatient control evidence by A1c of 11.3% * Recommend continuing metformin ER 1000 mg PO BIDM on discharge * Per ADA, recommend discharging on metformin + basal + mealtime insulin for A1c > 10% * Discussed regimen with CDE & patient * Pt agreeable to once daily Lantus and NovoLog given with the largest meal of the day May consider Lantus 25 units SQ daily in AM & NovoLog 10 units SQ daily with the largest meal of the day * Pt will f/u w/ occupational services re: insulin & driving, she is familiar with the process * Pt given a new meter by CDE. * Please note that the plan above was derived based on current level of insulin resistance and hospital stress. These recommendations are appropriate for inpatient admission only. Plan of care upon discharge will need to be reassessed to avoid potential outpatient hypo/hyperglycemia. Thank you.
[2017-01-19] MEDS ORDERED: INSULIN GLARGINE SOLOSTAR 100 UNITS/ML 3 ML PEN SC ONE (12:15)
[2017-01-19] MEDS ORDERED: METFORMIN HCL 500 MG TABCR PO ONE (12:15)
--- NOTE | 2017-01-19 12:15 | Discharge Summary ---
Discharge Summary Date of Service Jan 19, 2017. Discharge Summary Admission Date: Jan 17, 2017 at 00:43 Discharge Date: Jan 19, 2017 Discharge Disposition: Home Principal Diagnosis: DKA Problems/Secondary Diagnoses: DKA w/ h/o of T2DM- hA1C of 11.3% Hypokalemia Recurrent pancreatitis w/ normal lipase Ground glass opacities on CT Tobacco abuse PCOS Procedures: CT SCAN OF THE ABDOMEN AND PELVIS WITHOUT IV CONTRAST CLINICAL HISTORY: Generalized abdominal pain. COMPARISON STUDY: Abdominal CT dated 01/08/2016. TECHNIQUE: CT scan of the abdomen and pelvis is performed from the lung bases to the proximal femora. Images are reviewed in the axial, sagittal, and coronal planes. IV contrast was not administered for this examination as per the referring clinician. Note that the examination was performed in significantly suboptimal fashion without oral and IV contrast. The examination is also degraded by motion artifact. Automated dose control exposure was utilized. CT DOSE: 435.25 mGy.cm FINDINGS: Lung bases: The heart is normal in size and without pericardial effusion. Patchy groundglass opacities are seen within a subpleural distribution at both lung bases. No pleural effusion is identified. Liver: The unenhanced liver is normal in size, contour, and attenuation. There is no intrahepatic biliary ductal dilatation. Gallbladder: Surgically absent noting clips in the gallbladder fossa. Spleen: Normal in size and attenuation. Pancreas: Atrophic for age and grossly unremarkable. Adrenal glands: Unremarkable. Kidneys: The unenhanced kidneys are normal in size and without hydronephrosis. There are no renal calculi identified. There is no evidence of contour deforming renal mass lesion. Abdominal vasculature: The abdominal aorta is normal in course and caliber noting scattered foci of atherosclerotic calcification. Stomach and bowel: The stomach is distended and fluid-filled. The duodenum is normal in configuration and the small bowel loops are normal in caliber. The appendix is normal as visualized. Peritoneum: There is no intraperitoneal free air or abdominal ascites. Lymphadenopathy: None. Pelvic viscera: The bladder is markedly distended but otherwise normal in appearance. The uterus and adnexa are within normal limits. Skeletal structures: No lytic or blastic lesions are seen. IMPRESSION: 1. Significantly suboptimal examination without oral and IV contrast. The examination is also significantly motion compromised which degrades interpretation. 2. There are subpleural and wedge shaped groundglass opacities present at both lung bases. These are nonspecific and could represent an infectious/inflammatory pneumonitis. The appearance is atypical, and this could also be seen in the setting of pulmonary emboli with pulmonary infarcts. Consider correlation with a CT angiogram of the chest for further assessment. 3. The bladder is markedly distended but otherwise normal in appearance. 4. The stomach is distended and fluid-filled. The small bowel loops and colon are normal in caliber, with no evidence of small bowel obstruction. This is of indeterminate significance, and could be seen if there is some degree of gastric outlet obstruction. Clinical correlation will be essential. 5. The pancreas is atrophic and normal as visualized. 6. Additional findings as above. Electronically signed by: Miller Adorno M.D. 01/16/2017 11:12 PM Dictated Date/Time: 01/16/2017 11:04 PM The status of this report is Signed. Draft = Not yet reviewed or approved by Radiologist. Signed = Reviewed and approved by Radiologist. SINGLE VIEW CHEST CLINICAL HISTORY: Fever. FINDINGS: An AP, portable, upright chest radiograph is compared to study dated 01/15/2017. The examination is degraded by portable technique and patient rotation. The cardiomediastinal silhouette is unremarkable. Minimal atelectasis is seen at the left lung base. The lungs and pleural spaces are otherwise clear. No pneumothorax is seen. The bony thorax is grossly intact. Cholecystectomy clips are identified in the right upper quadrant. IMPRESSION: No active disease in the chest. Electronically signed by: Miller Adorno M.D. 01/16/2017 10:42 PM Dictated Date/Time: 01/16/2017 10:40 PM The status of this report is Signed. Draft = Not yet reviewed or approved by Radiologist. Signed = Reviewed and approved by Radiologist. CT ANGIOGRAM OF THE CHEST CLINICAL HISTORY: Chest and abdominal pain. Abnormal abdominal CT scan. COMPARISON STUDY: CT scan of the abdomen and pelvis dated 01/16/2017, CT scan of chest dated 10/06/2012 TECHNIQUE: Following the IV administration of 64 mL of [id number]-320, CT angiogram of the thorax was performed from the thoracic inlet to the lung bases utilizing the pulmonary embolus protocol. Images are reviewed in the axial, sagittal, and coronal planes. IV contrast was administered without complication. MIP imaging was performed. CT DOSE: 170.15 mGy.cm FINDINGS: No pathologically enlarged axillary mediastinal or hilar lymph nodes were visualized. There was no evidence of thoracic aortic dilatation. Pulmonary artery evaluation is significantly limited due to marked respiratory motion artifact. No central emboli are visualized. There are no significant pleural effusions Evaluation the parenchyma is limited due to respiratory motion artifact. There are bilateral peripheral lower lobe groundglass pulmonary opacities. Also evident are right middle lobe, right upper lobe, and left upper lobe groundglass opacities. The findings are likely infectious/inflammatory. Clinical and imaging follow-up is recommended. There is a dilated fluid-filled stomach. IMPRESSION: 1. Significantly limited study from a technical standpoint secondary to respiratory motion artifact 2. No central pulmonary emboli identified 3. Multifocal peripheral groundglass pulmonary opacities, likely infectious/inflammatory. Clinical and imaging follow-up is recommended Electronically signed by: Issa Sebastian M.D. 01/17/2017 7:11 AM Dictated Date/Time: 01/17/2017 7:05 AM The status of this report is Signed. Draft = Not yet reviewed or approved by Radiologist. Signed = Reviewed and approved by Radiologist. ULTRASOUND VENOUS DOPPLER LWR EXT BILA CLINICAL HISTORY: Leg swelling. COMPARISON STUDY: No previous studies for comparison. FINDINGS: Real-time and color flow Doppler imaging were performed. Flow was seen within the femoral, popliteal and calf veins with no intraluminal thrombus demonstrated. The saphenous vein is patent. IMPRESSION: No evidence of lower extremity DVT. Electronically signed by: Issa Sebastian M.D. 01/17/2017 7:11 AM Dictated Date/Time: 01/17/2017 7:11 AM The status of this report is Signed. Draft = Not yet reviewed or approved by Radiologist. Signed = Reviewed and approved by Radiologist. Consultations: Pharmacy for glycemic management clinical document improvement educator GI Critical care Medication Reconciliation New Medications: Insulin Aspart (Novolog Flexpen) 100 Units/Ml Inj 10 UNIT SQ DAILY for 30 Days, #300 UNITS daily with largest meal of the day Insulin Glargine (Lantus Solostar) 100 Unit/Ml Inj 25 UNITS SQ DAILY for 30 Days, #750 UNITS Potassium Chloride (Klor-Con M20) 20 Meq Tabcr 20 MEQ PO DAILY for 30 Days, #30 TABS Continued Medications: Diphenhydramine Hcl (Benadryl Allergy) 25 Mg Cap 75 MG PO HS PRN for Sleep, CAP Metformin Hcl Er (Glucophage Er) 500 Mg Tab 1000 MG PO BID Ondansetron (Ondansetron HCl) 8 Mg Tab 8 MG PO TID PRN for Nausea or Vomiting Ondasetron Odt (Zofran Odt) 4 Mg Tab 4 MG SL Q4 for Nausea, #20 TAB Pancrelipase (Lipase-Protease- (Creon 00655) 1 Cap Cap 24299 UNITS PO QID Promethazine Hcl (Phenergan) 25 Mg Tab 25 MG PO Q6H PRN for Nausea, TAB Tramadol HCl (Tramadol HCl) 50 Mg Tab 50-100 MG PO Q4H PRN for Pain Discharge Exam Review of Systems: Constitutional: No fever, No chills, No sweats, No weakness, No fatigue Respiratory: No cough, No shortness of breath, No hemoptysis Cardiovascular: No chest pain, No edema, No palpitations Abdomen: No pain, No nausea, No vomiting, No diarrhea, No constipation Musculoskeletal: No joint pain, No muscle pain, No swelling, No calf pain Genitourinary - Female: No dysuria, No hematuria Neurologic: No weakness, No numbness/tingling Psychiatric: No depression symptoms, No anxiety Hematologic / Lymphatic: No abnormal bleeding/bruising Integumentary: No rash, No itch, No new/changing skin lesions Physical Exam: General Appearance: no apparent distress Eyes: normal inspection, PERRL ENT: hearing grossly normal Neck: supple Respiratory/Chest: lungs clear, no respiratory distress, no accessory muscle use Cardiovascular: regular rate, rhythm Abdomen / GI: normal bowel sounds, non tender, soft Extremities: no pedal edema, normal range of motion Neurologic/Psychiatric: alert, normal mood/affect, oriented x 3 Skin: normal color, warm/dry, no rash Hospital Course Admission H&P: 36 y/o F Hx DM, chronic pancreatitis. Developed severe abdominal pain, nausea and several bouts of vomiting beginning early in the day. She presumed that this was due to a pancreatitis flare which she normally treats with bowel rest and narcotics in the outpatient setting. She could not hold down fluids and medications however and presented for evaluation. Initial labs are consistent with severe DKA and leukocytosis. There is no obvious source of infection. She denies any fevers, CP, SOB, cough or dysuria. She may have pancreatitis in addition to DKA despite a normal lipase due to her history of chronicity. A CT abdomen was obtained in the ER which could not r/o gastric outlet obstruction and incidentally revealed ground glass opacities at both lung bases. A follow up CTA was done to r/o PEs and PNM which did not show PEs but was concerning for an infectious process. She does not have a history of insulin dependence although her pancreas is atrophic. Physical Exam Vital Signs Date Time Temp Pulse Resp B/P (MAP) Pulse Ox O2 Delivery O2 Flow Rate FiO2 01/16/17 23:21 103 22 108/89 94 Room Air 01/16/17 22:06 109 22 154/109 95 Room Air 01/16/17 21:42 109 18 156/107 99 Room Air 01/16/17 20:16 36.3 118 26 177/96 100 Room Air General Appearance: WD/WN, no apparent distress Head: normocephalic Eyes: normal inspection ENT: normal ENT inspection, pharynx normal Neck: supple, no JVD Respiratory/Chest: chest non-tender, lungs clear, normal breath sounds Cardiovascular: regular rate, rhythm, no edema, no gallop Abdomen/GI: normal bowel sounds, soft, + tenderness (mild, diffuse tenderness - no distention) Back: normal inspection, no CVA tenderness, no muscle spasm, normal range of motion Extremities/Musculoskelatal: normal inspection, no calf tenderness, normal capillary refill, no pedal edema, normal range of motion Neurologic/Psych: media coordinator II-XII nml as tested, no motor/sensory deficits, alert Skin: normal color, warm/dry, no rash DKA w/ h/o of T2DM- hA1C of 11.3%: - Admitted to ICU -- Transferred to med/surg on 01/18 She does not have a history of insulin dependence. - Initial treatment w/ DKA protocol and IVF- transitioned SQ insulin - Mag-Ox supplement 400 mg QPM - BCx- NGTD, UCx- negative - MRSA swab- negative - Pharmacy consulted for glycemic management -- Recommend Lantus 25 u daily, continuing Metformin 1000 mg BID, and NovoLog 10 U SQ w/ largest meal of day - Diabetic education completed - Endocrinology f/u scheduled for 01/22 Hypokalemia: - Replaced w/ 40 mEq KCL x1 and started KCL 10 mEq TID - Discharge w/ 20 mEq KCL PO daily and PCP f/u Recurrent pancreatitis w/ normal lipase: - IVF - Clear liquid diet and advanced as tolerated - IV Dilaudid 0.5 mg and Roxicodone PRN pain management- has not required pain medication since 01/18 - Consulted GI, apprecaite recommendations -- Offered EGD vs UGI to rule out gastric outlet obstruction but patient declines. She want to reintroduce diet and see how she does. -- For elevated LFTS and recurrent pancreatitis recommend elective EUS and she is thinking about that. - Continue outpatient f/u for chronic pancreatitis Ground glass opacities on CT: - No clinical evidence of PNM - Leukocytosis is likely the result of DKA - O2 protocol- did NOT require O2 supplement - No antibiotic therapy indicated Tobacco abuse: Smoking cessation counselling DVT Prophylaxis: Lovenox Code Status: LEVEL I, FULL Dispo: Discharge to home - Has scheduled f/u w/ PCP and endocrinology on 01/22 Total Time Spent: Greater than 30 minutes This includes examination of the patient, discharge planning, medication reconciliation, and communication with other providers. Discharge Instructions Please refer to the electronic Patient Visit Report (Discharge Instructions) for additional information. Follow-Up Please follow-up with your PCP within 5-7 days Please follow-up with Endocrinology as scheduled on 01/22 f/u w/ occupational services regarding insulin & driving Please follow-up/keep all of your subspecialty appointments Additional Copies To Aram Elise M.D.
[2017-01-19] MEDS ORDERED: INSDGIPEN SQ ×2 (12:18→12:30)
[2017-01-19] MEDS ORDERED: MCRK20 PO (12:18)
--- NOTE | 2017-01-19 12:31 | Discharge Instructions ---
Discharge Instructions Date of Service Jan 19, 2017. Admission Reason for Admission: DKA Discharge Discharge Diagnosis / Problem: DKA Discharge Goals Goal(s): Decrease discomfort, Improve disease control, Improve nutritional status, Learn about illness, Diagnostic testing, Therapeutic intervention, Prevent Disease Progression Activity Recommendations Activity Limitations: resume your previous activity . Instructions / Follow-Up Instructions / Follow-Up New medications: 1. Lantus 25 units subcutaneous injection once daily in the morning 2. NovoLog 10 units subcutaneous injection once daily with your largest meal of the day 2. Potassium supplement 20 mEq by mouth once daily These medications were sent electronically to your pharmacy Resume all other regular home medications as prescribed Continue to advance diet slowly and as tolerated Please follow-up with your PCP within 5-7 days Please keep scheduled follow-up with Endocrinology on 01/22 f/u w/ occupational services regarding insulin & driving Please follow-up/keep all of your subspecialty appointments Current Hospital Diet Patient's current hospital diet: Diabetes Type 2 Diet, Low Fiber Diet, Low Fat Diet Discharge Diet Recommended Diet: Diabetes Type 2 Diet Procedures Procedures Performed: Chest CTA Chest x-ray Venous Doppler Abdominal CT Pending Studies Studies pending at discharge: no Laboratory Results Last 24 Hours Test 01/18/17 16:35 01/18/17 20:08 01/19/17 07:04 01/19/17 07:26 Bedside Glucose 154 mg/dl 169 mg/dl 163 mg/dl White Blood Count 5.32 K/uL Red Blood Count 3.86 M/uL Hemoglobin 12.9 g/dL Hematocrit 35.4 % Mean Corpuscular Volume 91.7 fL Mean Corpuscular Hemoglobin 33.4 pg Mean Corpuscular Hemoglobin Concent 36.4 g/dl Platelet Count 137 K/uL Mean Platelet Volume 10.4 fL Neutrophils (%) (Auto) 45.1 % Lymphocytes (%) (Auto) 47.6 % Monocytes (%) (Auto) 5.8 % Eosinophils (%) (Auto) 1.1 % Basophils (%) (Auto) 0.2 % Neutrophils # (Auto) 2.40 K/uL Lymphocytes # (Auto) 2.53 K/uL Monocytes # (Auto) 0.31 K/uL Eosinophils # (Auto) 0.06 K/uL Basophils # (Auto) 0.01 K/uL RDW Standard Deviation 41.7 fL RDW Coefficient of Variation 12.3 % Immature Granulocyte % (Auto) 0.2 % Immature Granulocyte # (Auto) 0.01 K/uL Venous Blood pH 7.44 Sodium Level 139 mmol/L Potassium Level 2.9 mmol/L Chloride Level 100 mmol/L Carbon Dioxide Level 29 mmol/L Anion Gap 10.0 mmol/L Blood Urea Nitrogen 9 mg/dl Creatinine 0.23 mg/dl Est Creatinine Clear Calc Drug Dose 270.0 ml/min Estimated GFR () > 150.0 Estimated GFR (Non- > 150.0 BUN/Creatinine Ratio 40.0 Random Glucose 169 mg/dl Calcium Level 8.9 mg/dl Phosphorus Level 4.0 mg/dl Magnesium Level 2.0 mg/dl Total Bilirubin 0.5 mg/dl Aspartate Amino Transf (AST/SGOT) 108 U/L Alanine Aminotransferase (ALT/SGPT) 102 U/L Alkaline Phosphatase 213 U/L Total Protein 5.2 gm/dl Albumin 2.4 gm/dl Globulin 2.8 gm/dl Albumin/Globulin Ratio 0.9 Chemistry Specimen Hemolysis Test 01/19/17 11:24 Bedside Glucose 299 mg/dl Hemoglobin A1c Test 01/17/17 04:14 Range/Units Estimated Average Glucose 278 mg/dl Hemoglobin A1c 11.3 H 4.5-5.6 % Medical Emergencies . Who to Call and When: Medical Emergencies: If at any time you feel your situation is an emergency, please call 911 immediately. . Non-Emergent Contact Non-Emergency issues call your: Primary Care Provider . . "Provider Documentation" section prepared by Diana Mccall. . VTE Core Measure Inpt VTE Proph given/why not?: Enoxaparin (Lovenox)SQ
[2017-01-19] MEDS ORDERED: NVLGIPEN SQ (12:36)
[2017-01-19 13:12] VITALS: Ht 157.5 cm; Wt 50.3 kg
[2017-01-19 13:16] VITALS: BP 104/65; PULSE 56; TEMP 36.3; O2SAT 97
[2017-01-19] MEDS ORDERED: POTASSIUM CHLORIDE 10 MEQ TABCR PO SCH (14:00)
[2017-01-19] MEDS ORDERED: INSULIN GLARGINE SOLOSTAR 100 UNITS/ML 3 ML PEN SC SCH (17:00)
[2017-01-19] MEDS ORDERED: METFORMIN HCL 500 MG TABCR PO SCH (17:00)
[2017-01-20] MEDS ORDERED: INSULIN GLARGINE SOLOSTAR 100 UNITS/ML 3 ML PEN SC SCH (09:00)
[2017-03-06] MEDS ORDERED: PANC1200 PO (07:11)
[2017-03-06] MEDS ORDERED: METF500T5 PO (10:42)
[2017-03-06] MEDS ORDERED: DIPH25CA65 PO (10:42)
[2017-04-24] MEDS ORDERED: hydrocodone PO (14:20)
[2017-04-24] MEDS ORDERED: IBUP-1277 PO (14:21)
[2017-04-24] MEDS ORDERED: ACET-1256 PO (14:21)
== END 2017-01-19 13:45 | disposition home or self-care (01) | DRG 638 ==
LOC: C.EDB 20:14 → C.MSICU 01-17 00:43 → ENRESERV 01-17 00:55 → C.MS2W 01-18 09:41
PROVIDERS: ADMIT Internal Medicine; ATTEND Internal Medicine
DX: E13.10 Other specified diabetes mellitus with ketoacidosis without coma (principal); K86.1 Other chronic pancreatitis; E87.6 Hypokalemia; Z83.3 Family history of diabetes mellitus; Z82.49 Family history of ischemic heart disease and other diseases of the circulatory system; F17.200 Nicotine dependence, unspecified, uncomplicated; Z79.84 Long term (current) use of oral hypoglycemic drugs; E28.2 Polycystic ovarian syndrome; E86.0 Dehydration; Z90.49 Acquired absence of other specified parts of digestive tract; F17.210 Nicotine dependence, cigarettes, uncomplicated; F90.9 Attention-deficit hyperactivity disorder, unspecified type; E11.9 Type 2 diabetes mellitus without complications; Z79.899 Other long term (current) drug therapy

== ENCOUNTER → 2017-02-03 | Outpatient (CLI) | payer BC ==
[~2017-02-03] MED LIST changes: +ACET-1256 PO; +CETI10TA10 PO; +DIPH25CA65 PO; +IBUP-1277 PO; +INSDGIPEN SQ; +INSU1.2I SC; +LISI-461 PO; +LSX20 PO; +MCRK20 PO; +METF500T5 PO; +NVLGI/PEN SC; +NVLGIPEN SQ; +ONDA-63 PO; +PANC1200 PO; +PROM25TA16 PO; +ULT50 PO; +hydrocodone PO
--- NOTE | 2017-02-03 12:49 | DIAGNOSTIC IMAGING REPORT ---
VENOUS DOPPLER LW EXT BILAT HISTORY: Pain. Edema. SWELLING COMPARISON STUDY: 01/17/2017 FINDINGS: There is normal compressibility, flow, and augmentation within the bilateral lower extremity deep venous systems. IMPRESSION: No DVT within the right or left lower extremity. The above report was generated using voice recognition software. It may contain grammatical, syntax or spelling errors. Electronically signed by: Gurwinder Collier M.D. 02/03/2017 12:47 PM Dictated Date/Time: 02/03/2017 12:47 PM
== END | disposition home or self-care (01) ==
LOC: C.ULTR 12:06
PROVIDERS: ATTEND Nurse Practitioner Family
DX: R22.43 Localized swelling, mass and lump, lower limb, bilateral (principal)

== ENCOUNTER 2017-03-06 20:55 | Emergency (ER) | payer BC ==
[~2017-03-06] VITALS: Ht 157.5 cm; Wt 55.3 kg
[~2017-03-06 20:55] MED LIST changes: -ACET-1256 PO; -CETI10TA10 PO; -IBUP-1277 PO; -INSU1.2I SC; -LISI-461 PO; -LSX20 PO; -NVLGI/PEN SC; -ONDA-63 PO; -PROM25TA16 PO; -ULT50 PO; -hydrocodone PO
[2017-03-06 20:58] VITALS: TEMP 36.6; Ht 157.5 cm; Wt 55.3 kg
[2017-03-06] MEDS ORDERED: CETI10TA10 PO (21:42)
[2017-03-06] MEDS ORDERED: INSU1.2I SC (21:42)
[2017-03-06] MEDS ORDERED: LSX20 PO (21:42)
[2017-03-06] MEDS ORDERED: LISI-461 PO (21:42)
[2017-03-06] MEDS ORDERED: PROM25TA16 PO (21:42)
[2017-03-06] MEDS ORDERED: NVLGI/PEN SC (21:42)
[2017-03-06] MEDS ORDERED: ULT50 PO (22:07)
[2017-03-06] MEDS ORDERED: ONDA-63 PO (22:07)
--- NOTE | 2017-03-06 22:26 | DIAGNOSTIC IMAGING REPORT ---
LEFT FINGER(S) MIN 2 VIEWS ROUTINE HISTORY: 36 years-old Female 4th finger injury left COMPARISON: None available TECHNIQUE: 3 views of the left fourth digit. FINDINGS: There is an acute volar plate avulsion fracture involving the base of the fourth middle phalanx with associated moderate soft tissue swelling. There is only approximately 2 mm of volar displacement. No additional acute fracture or dislocation. IMPRESSION: Acute minimally displaced volar plate avulsion fracture involves the base of the fourth middle phalanx with soft tissue swelling. The above report was generated using voice recognition software. It may contain grammatical, syntax or spelling errors. Electronically signed by: Osito Blackwell M.D. 03/06/2017 10:25 PM Dictated Date/Time: 03/06/2017 10:21 PM
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
[2017-03-06 23:03] VITALS: BP 117/82; PULSE 98; O2SAT 98
[2017-04-24] MEDS ORDERED: hydrocodone PO (14:20)
[2017-04-24] MEDS ORDERED: ACET-1256 PO (14:21)
[2017-04-24] MEDS ORDERED: IBUP-1277 PO (14:21)
== END 2017-03-06 23:03 | disposition home or self-care (01) ==
LOC: C.EDB 20:56 → C.EDC 23:03
DX: T14.8 Other injury of unspecified body region (principal); S62.625A Displaced fracture of middle phalanx of left ring finger, initial encounter for closed fracture; V00.148A Other scooter (nonmotorized) accident, initial encounter; E11.9 Type 2 diabetes mellitus without complications; E87.8 Other disorders of electrolyte and fluid balance, not elsewhere classified; E87.5 Hyperkalemia; E87.1 Hypo-osmolality and hyponatremia; Z83.3 Family history of diabetes mellitus; Z82.49 Family history of ischemic heart disease and other diseases of the circulatory system; F17.200 Nicotine dependence, unspecified, uncomplicated; Z79.4 Long term (current) use of insulin

== ENCOUNTER → 2017-04-28 | Outpatient (CLI) | payer BC, OTHER ==
[~2017-04-28] MED LIST changes: +ACET-1256 PO; +CETI10TA10 PO; +IBUP-1277 PO; -INSDGIPEN SQ; +INSU1.2I SC; +LISI-461 PO; +LSX20 PO; -MCRK20 PO; +NVLGI/PEN SC; -NVLGIPEN SQ; +ONDA-63 PO; -ONDA4TAB10 SL; +PROM25TA16 PO; -PROM25TA9 PO; +ULT50 PO; +hydrocodone PO
--- NOTE | 2017-04-28 13:29 | DIAGNOSTIC IMAGING REPORT ---
L FINGER(S) MIN 2 VIEWS HISTORY: 36 years-old Female LEFT 4TH FINGER PAIN acute left fourth finger pain. COMPARISON: Finger radiographs 03/06/2017. TECHNIQUE: 3 views of the left fourth digit FINDINGS: Healing subacute volar plate avulsion fracture of the fourth middle phalangeal base is seen with unchanged alignment from comparison. Soft tissue swelling centered about the fourth PIP joint is noted. No additional fracture or dislocation. IMPRESSION: Healing subacute volar plate avulsion fracture of the fourth middle phalangeal base with unchanged alignment. The above report was generated using voice recognition software. It may contain grammatical, syntax or spelling errors. Electronically signed by: Osito Blackwell M.D. 04/28/2017 1:27 PM Dictated Date/Time: 04/28/2017 1:25 PM
== END | disposition home or self-care (01) ==
LOC: C.RDSM 13:10
PROVIDERS: ATTEND Family Medicine
DX: S62.629A Displaced fracture of middle phalanx of unspecified finger, initial encounter for closed fracture (principal); X58.XXXA Exposure to other specified factors, initial encounter

== ENCOUNTER 2017-07-02 18:35 | Emergency (ER) | payer BC, OTHER ==
[~2017-07-02] VITALS: Ht 157.5 cm; Wt 52.0 kg
[2017-07-02 18:40] VITALS: Ht 157.5 cm; Wt 52.0 kg
[2017-07-02] MEDS ORDERED: METOCLOPRAMIDE HCL INJ 5 MG/ML 2 ML VIAL IV STA (18:55)
--- NOTE | 2017-07-02 18:59 | EMERGENCY ROOM VISIT NOTE ---
History First contact with patient: 18:43 Chief Complaint: DEHYDRATION Stated Complaint: DEHYDRATION Nursing Triage Summary: pt sent in by PMD for concerns for dehydration, pt has had nausea and dry heaving that has been getting worse with lower pelvic cramping History of Present Illness The patient is a 36 year old female who presents to the Emergency Room with complaints of nausea and vomiting that has gotten progressively worse throughout the month. The patient deals with nausea and vomiting on a daily basis. She has a history of chronic pancreatitis and gastroparesis. She is been taking her typical regimen of antiemetics without relief. The patient tried to get in with her primary care physician, who sent her here for IV fluids. Her last bowel movement was today and reported normal. She denies any significant abdominal pain. No fever or chills. Review of Systems 10 system review performed and negative unless noted in HPI or below Past Medical/Surgical History Medical Problems: (1) Abdominal pain (2) Abscess of groin, left (3) Acute abdominal pain (4) Acute abdominal pain (5) Acute diverticulitis (6) Acute on chronic pancreatitis (7) Acute pancreatitis (8) Attn Defic Nonhyperact (9) Bronchitis (10) Cellulitis (11) Dehydration (12) Dehydration (13) Diabetes (14) Hyperchloremia (15) Hyperkalemia (16) Hyponatremia (17) Hypophosphatemia (18) Intractable nausea and vomiting (19) Left lower quadrant pain (20) Metabolic acidosis (21) MRSA (22) Nausea, vomiting and diarrhea (23) Nausea, vomiting, and diarrhea (24) Pancreatitis (25) Pancreatitis (26) Pancreatitis (27) Polycystic Ovaries (28) RUQ abdominal pain (29) Tobacco abuse counseling (30) Transaminitis (31) Type 2 diabetes mellitus with hyperglycemia (32) Type 2 diabetes mellitus with hyperglycemia (33) Type 2 diabetes mellitus with hyperglycemia Surgical Problems: (1) Cyst removal (2) Hx laparoscopic cholecystectomy (3) Tonsillectomy Family History Diabetes mellitus Heart disease Social History Smoking Status: Current Every Day Smoker Alcohol Use: none Drug Use: none Marital Status: Housing Status: lives with family Occupation Status: employed Current/Historical Medications Scheduled Doxylamine-Pyridoxine (Diclegis), 1 TAB PO DIRECTED Insulin Aspart (Novolog Flexpen), 1 DOSE SC UD Insulin Glargine (Toujeo Solostar), 44 UNITS SC DAILY Lisinopril (Lisinopril), 10 MG PO DAILY Metformin Hcl Er (Glucophage Er), 1,000 MG PO BID Pancrelipase (Lipase-Protease- (Creon [id number]), 36,000 UNITS PO QID Scheduled PRN Dronabinol (Marinol), 2.5 MG PO DIRECTED PRN for Nausea Tramadol HCl (Tramadol HCl), 50-100 MG PO Q4H PRN for Pain Physical Exam Vital Signs Date Time Temp Pulse Resp B/P (MAP) Pulse Ox O2 Delivery O2 Flow Rate FiO2 07/02/17 18:40 36.6 99 16 116/82 98 Physical Exam VITALS: Vitals are noted on the nurse's note and reviewed by myself. Vital signs stable. GENERAL: 36-year-old female, in no acute distress, nondiaphoretic, well- developed well-nourished. SKIN: The skin was dry HEAD: Normocephalic atraumatic. MOUTH: Mucous membranes very dry. NECK: Supple without nuchal rigidity. HEART: Regular rate and rhythm without murmurs gallops or rubs. LUNGS: Clear to auscultation bilaterally without wheezes, rales or rhonchi. No accessory muscle use. ABDOMEN: Positive bowel sounds x 4.Soft, nontender, without organomegaly. No guarding or rebound tenderness. MUSCULOSKELETAL: No muscle atrophy, erythema, or edema noted. Strength 5/5 throughout. NEURO: Patient was alert and oriented to person place and time. Normal sensation to touch. No focal neurological deficits. Medical Decision & Procedures Laboratory Results 07/02/17 19:10 Red Blood Count 4.76, Mean Corpuscular Volume 90.5, Mean Corpuscular Hemoglobin 32.4, Mean Corpuscular Hemoglobin Concent 35.7, Mean Platelet Volume 10.1, Neutrophils (%) (Auto) 64.8, Lymphocytes (%) (Auto) 27.2, Monocytes (%) (Auto) 5.7, Eosinophils (%) (Auto) 1.8, Basophils (%) (Auto) 0.2, Neutrophils # (Auto) 9.87, Lymphocytes # (Auto) 4.14, Monocytes # (Auto) 0.87, Eosinophils # (Auto) 0.27, Basophils # (Auto) 0.03 07/02/17 19:10 Test 07/02/17 19:10 07/02/17 19:15 White Blood Count 15.22 K/uL (4.8-10.8) Red Blood Count 4.76 M/uL (4.2-5.4) Hemoglobin 15.4 g/dL (12.0-16.0) Hematocrit 43.1 % (37-47) Mean Corpuscular Volume 90.5 fL (80-100) Mean Corpuscular Hemoglobin 32.4 pg (25-34) Mean Corpuscular Hemoglobin Concent 35.7 g/dl (32-36) Platelet Count 270 K/uL (130-400) Mean Platelet Volume 10.1 fL (7.4-10.4) Neutrophils (%) (Auto) 64.8 % Lymphocytes (%) (Auto) 27.2 % Monocytes (%) (Auto) 5.7 % Eosinophils (%) (Auto) 1.8 % Basophils (%) (Auto) 0.2 % Neutrophils # (Auto) 9.87 K/uL (1.4-6.5) Lymphocytes # (Auto) 4.14 K/uL (1.2-3.4) Monocytes # (Auto) 0.87 K/uL (0.11-0.59) Eosinophils # (Auto) 0.27 K/uL (0-0.5) Basophils # (Auto) 0.03 K/uL (0-0.2) RDW Standard Deviation 41.8 fL (36.4-46.3) RDW Coefficient of Variation 12.7 % (11.5-14.5) Immature Granulocyte % (Auto) 0.3 % Immature Granulocyte # (Auto) 0.04 K/uL (0.00-0.02) Anion Gap 7.0 mmol/L (3-11) Est Creatinine Clear Calc Drug Dose 94.1 ml/min Estimated GFR () 132.6 Estimated GFR (Non- 114.4 BUN/Creatinine Ratio 27.9 (10-20) Calcium Level 10.0 mg/dl (8.5-10.1) Total Bilirubin 0.4 mg/dl (0.2-1) Aspartate Amino Transf (AST/SGOT) 21 U/L (15-37) Alanine Aminotransferase (ALT/SGPT) 41 U/L (12-78) Alkaline Phosphatase 114 U/L (45-117) Total Protein 8.0 gm/dl (6.4-8.2) Albumin 4.0 gm/dl (3.4-5.0) Globulin 4.0 gm/dl (2.5-4.0) Albumin/Globulin Ratio 1.0 (0.9-2) Lipase 40 U/L (73-393) Urine Color YELLOW Urine Appearance SL CLOUDY (CLEAR) Urine pH 5.5 (4.5-7.5) Urine Specific [place] 1.020 (1.000-1.030) Urine Protein NEG (NEG) Urine Glucose (UA) TRACE (NEG) Urine Ketones NEG (NEG) Urine Occult Blood NEG (NEG) Urine Nitrite NEG (NEG) Urine Bilirubin NEG (NEG) Urine Urobilinogen NEG (NEG) Urine Leukocyte Esterase TRACE (NEG) Urine RBC /hpf (0-4) Urine WBC /hpf (0-5) Urine Epithelial Cells /lpf (0-5) Urine Bacteria (NEG) Urine Test NEG (NEG) Medications Administered Medications (Trade) Dose Ordered Sig/Trino Route Start Time Stop Time Status Last Admin Dose Admin Sodium Chloride 1,000 ml @ 999 mls/hr Q1H1M ONCE IV 07/02/17 19:00 07/02/17 20:00 DC 07/02/17 19:31 999 MLS/HR Sodium Chloride 1,000 ml @ 999 mls/hr Q1H1M ONCE IV 07/02/17 19:00 07/02/17 20:00 DC 07/02/17 19:31 999 MLS/HR Metoclopramide HCl (Reglan Inj) 10 mg NOW STAT IV 07/02/17 18:55 07/02/17 18:57 DC 07/02/17 19:31 10 MG Ondansetron HCl (Zofran Inj) 4 mg NOW STAT IV 07/02/17 21:05 07/02/17 21:06 DC 07/02/17 21:26 4 MG ED Course Patient was seen and examined Vital signs including blood pressure were reviewed medications list was verified with patient Labs were obtained, and a saline lock was established The patient was medicated with Reglan 10 mg IV. She was hydrated with 2 L normal saline. Upon reevaluation, the patient was feeling better. She requested an additional dose of nausea medication. She was given Zofran 4 mg IV. We discussed the findings of her lab results. She voiced understanding. She was comfortable being discharged home. I reviewed discharge instructions the patient. They voiced understanding and had no further questions. Medical Decision Differential diagnosis: Chronic pancreatitis, gastroparesis, bowel obstruction, intussusception, viral GI illness, bacterial GI illness This patient is a 36-year-old female that presents to emergency department with nausea and vomiting. This is chronic in nature. She denies any significant pain. The patient's abdomen was benign on exam. I do not suspect an acute abdomen. I did not find imaging necessary. The patient did have leukocytosis, however I think this is likely due to vomiting. She was informed of this finding. I advised patient to be rechecked by her primary care physician tomorrow. She should also have a repeat CBC. She was in agreement with this plan. She had good symptomatic relief in the emergency department. She is tolerating liquids. She was advised to return to the emergency department with any new, worsening or persistent symptoms. This chart was completed in part utilizing [employer] Speech Voice Recognition software. Attempts were made to minimize the grammatical errors, random word insertions, pronoun errors and incomplete sentences. Any formal questions or concerns about the content, text or information contained within the body of this dictation should be directly addressed to the provider for clarification. Medication Reconcilliation Current Medication List: was personally reviewed by me Blood Pressure Screening Patient's blood pressure: Normal blood pressure Impression Primary Impression: Vomiting Departure Information Dispostion Home / Self-Care Condition FAIR Referrals Aram Elise M.D. (PCP) Patient Instructions My [facility] Additional Instructions You have been evaluated in the emergency department for persistent vomiting. You did appear dehydrated on exam. This was treated with IV fluids and antinausea medication through the IV. Your blood work noted a slight elevation in your white blood cell count. This should be rechecked in the next 2-3 days. Continue antinausea medication as prescribed. Increase fluids over the next several days. I would stick to clear liquids such as water and Gatorade tonight. If tolerating, you may advance to bland diet tomorrow. Please do not hesitate to return with any new, worsening or persistent symptoms ; especially, abdominal pain, fever or persistent vomiting.
[2017-07-02] MEDS ORDERED: SODIUM CHLORIDE 0.9% 1000ML 1,000 ML IV ONE ×2 (19:00)
[2017-07-02] MEDS ORDERED: DOXY30TA PO (19:05)
[2017-07-02] MEDS ORDERED: MRN/25 PO (19:05)
[2017-07-02 19:22] LABS: BASO % 0.2 %; BASO ABS # 0.03 K/uL (0-0.2); COMPLETE YES; EOS % 1.8 %; HEMATOCRIT 43.1 % (37-47); IG% 0.3 %; LYMPH % 27.2 %; LYMPH ABS # 4.14 K/uL (1.2-3.4); MEAN CELL VOLUME 90.5 fL (80-100); MEAN CORPUSCULAR HEMOGLOBIN 32.4 pg (25-34); MEAN CORPUSCULAR HGB CONC 35.7 g/dl (32-36); MEAN PLATELET VOLUME 10.1 fL (7.4-10.4); MONO % 5.7 %; NEUT % 64.8 %; PLATELET COUNT 270 K/uL (130-400); RED BLOOD COUNT 4.76 M/uL (4.2-5.4); WHITE BLOOD COUNT 15.22 K/uL (4.8-10.8)
[2017-07-02 19:41] LABS: BUN/CREATININE RATIO 27.9 (10-20); CREATININE 0.66 mg/dl (0.60-1.20); POTASSIUM 3.7 mmol/L (3.5-5.1)
[2017-07-02 19:56] LABS: MANUAL MICROSCOPIC REQUIRED? YES; URINE APPEARANCE SL CLOUDY (CLEAR); URINE BILIRUBIN NEG (NEG); URINE COLOR YELLOW; URINE NITRITE NEG (NEG); URINE PH 5.5 (4.5-7.5); UROBILINOGEN NEG (NEG)
[2017-07-02 19:58] LABS: REVIEW REQ? NO
[2017-07-02] MEDS ORDERED: ONDANSETRON INJ 2 MG/ML 2 ML VIAL IV STA (21:05)
[2017-07-02 22:18] VITALS: BP 121/73; PULSE 80; TEMP 36.6; O2SAT 98
== END 2017-07-02 22:19 | disposition home or self-care (01) ==
LOC: C.EDB 18:36
DX: R11.2 Nausea with vomiting, unspecified (principal); K86.1 Other chronic pancreatitis; E11.43 Type 2 diabetes mellitus with diabetic autonomic (poly)neuropathy; K31.84 Gastroparesis; F98.8 Other specified behavioral and emotional disorders with onset usually occurring in childhood and adolescence; F17.200 Nicotine dependence, unspecified, uncomplicated; Z79.4 Long term (current) use of insulin; Z83.3 Family history of diabetes mellitus; Z82.49 Family history of ischemic heart disease and other diseases of the circulatory system

== ENCOUNTER → 2017-07-23 | Day surgery (SDC) | payer BC, OTHER ==
[~2017-07-23] VITALS: Ht 157.5 cm; Wt 53.5 kg
[~2017-07-23] MED LIST changes: -ACET-1256 PO; -CETI10TA10 PO; -DIPH25CA65 PO; +DOXY30TA PO; -IBUP-1277 PO; -LSX20 PO; +MRN/25 PO; -ONDA-63 PO; -PROM25TA16 PO; +SODIUM CHLORIDE 0.9% 1000ML 1,000 ML IV SCH; -hydrocodone PO
[2017-07-23 10:55] VITALS: BP 107/77; PULSE 71; TEMP 36.6; O2SAT 94; Ht 157.5 cm; Wt 53.5 kg
== END | disposition home or self-care (01) ==
LOC: C.MTU 10:38
PROVIDERS: ATTEND Family Medicine
DX: K86.1 Other chronic pancreatitis (principal); R11.0 Nausea; E86.0 Dehydration

== ENCOUNTER 2017-08-03 11:25 | Emergency (ER) | payer BC, OTHER ==
[~2017-08-03] VITALS: Ht 157.5 cm; Wt 50.6 kg
[~2017-08-03 11:25] MED LIST changes: -SODIUM CHLORIDE 0.9% 1000ML 1,000 ML IV SCH
[2017-08-03 11:29] VITALS: TEMP 36.6; Ht 157.5 cm; Wt 50.6 kg
[2017-08-03] MEDS ORDERED: SODIUM CHLORIDE 0.9% 1000ML 1,000 ML IV STA (11:48)
[2017-08-03] MEDS ORDERED: ONDANSETRON INJ 2 MG/ML 2 ML VIAL IV STA ×2 (11:48→13:15)
[2017-08-03 12:33] LABS: ALBUMIN 4.2 gm/dl (3.4-5.0); CALCIUM 9.8 mg/dl (8.5-10.1); CREATININE 0.75 mg/dl (0.60-1.20); POTASSIUM 3.9 mmol/L (3.5-5.1)
--- NOTE | 2017-08-03 12:46 | DIAGNOSTIC IMAGING REPORT ---
PA CHEST WITH ABDOMINAL SERIES CLINICAL HISTORY: Generalized abdominal pain. Cramping. Nausea and vomiting. FINDINGS: A PA chest radiograph is compared to chest x-ray and chest CT dated 01/16/2017. The cardiomediastinal silhouette is unremarkable. The lungs and pleural spaces are clear. No pneumothorax is seen. The bony thorax is grossly intact. There is minimal S-shaped thoracolumbar scoliosis. Supine and erect abdominal radiographs are correlated with abdominal CT dated 01/16/2017. Cholecystectomy clips are noted. There is a nonobstructed abdominal bowel gas pattern. No evidence of intraperitoneal free air is seen. There are no abnormal abdominal calcifications. The lumbosacral spine and bony pelvis appear intact. IMPRESSION: 1. No active disease in the chest. 2. Nonobstructed abdominal bowel gas pattern. Electronically signed by: Miller Adorno M.D. 08/03/2017 12:44 PM Dictated Date/Time: 08/03/2017 12:43 PM
[2017-08-03 12:51] LABS: BASO % 0.2 %; BASO ABS # 0.02 K/uL (0-0.2); EOS % 0.9 %; EOS ABS # 0.08 K/uL (0-0.5); HEMATOCRIT 49.1 % (37-47); HEMOGLOBIN 18.1 g/dL (12.0-16.0); IG# 0.01 K/uL (0.00-0.02); LYMPH % 28.7 %; LYMPH ABS # 2.54 K/uL (1.2-3.4); MEAN CELL VOLUME 88.8 fL (80-100); MEAN CORPUSCULAR HEMOGLOBIN 32.7 pg (25-34); MEAN CORPUSCULAR HGB CONC 36.9 g/dl (32-36); MEAN PLATELET VOLUME 10.6 fL (7.4-10.4); MONO % 5.4 %; MONO ABS # 0.48 K/uL (0.11-0.59); NEUT % 64.7 %; NEUT ABS # 5.72 K/uL (1.4-6.5); PLATELET COUNT 249 K/uL (130-400); RED CELL DISTRIBUTION WIDTH CV 12.2 % (11.5-14.5); RED CELL DISTRIBUTION WIDTH SD 39.5 fL (36.4-46.3); WHITE BLOOD COUNT 8.85 K/uL (4.8-10.8)
--- NOTE | 2017-08-03 13:15 | EMERGENCY ROOM VISIT NOTE ---
History First contact with patient: 11:40 Chief Complaint: DEHYDRATION Stated Complaint: DEHYDRATION,CRAMPS,VOMITING,STOMACH AND LOW BACK P Nursing Triage Summary: Referred from [facility] pt c/o n/v, shaking, sweating, abd cramping. constant problem for months. pt now unable to keep meds or water down since Thursday. hx of Pancreatitis and Gastroparesis History of Present Illness The patient is a 36 year old female who presents to the Emergency Room from her family doctor for dehydration . The patient has chronic abdominal cramping, nausea and vomiting which is gotten worse over the past 4 days. She has been able to keep only small amounts of liquid and food down over the past 4 days. The patient was seen by her PCP today and was sent over to the ER for possible dehydration. The patient has a history of pancreatitis and gastroparesis. The patient denies any fever, chest pain or shortness of breath. The patient also seen Dr. Sharma a few days ago for her symptoms. Her PCP and gastroenterology are working together to find out the etiology of her chronic GI symptoms. Review of Systems 10 system review was performed and was negative unless stated otherwise history of present illness. Past Medical/Surgical History Medical Problems: (1) Abdominal pain (2) Abscess of groin, left (3) Acute abdominal pain (4) Acute abdominal pain (5) Acute diverticulitis (6) Acute on chronic pancreatitis (7) Acute pancreatitis (8) Attn Defic Nonhyperact (9) Bronchitis (10) Cellulitis (11) Dehydration (12) Dehydration (13) Diabetes (14) Hyperchloremia (15) Hyperkalemia (16) Hyponatremia (17) Hypophosphatemia (18) Intractable nausea and vomiting (19) Left lower quadrant pain (20) Metabolic acidosis (21) MRSA (22) Nausea, vomiting and diarrhea (23) Nausea, vomiting, and diarrhea (24) Pancreatitis (25) Pancreatitis (26) Pancreatitis (27) Polycystic Ovaries (28) RUQ abdominal pain (29) Tobacco abuse counseling (30) Transaminitis (31) Type 2 diabetes mellitus with hyperglycemia (32) Type 2 diabetes mellitus with hyperglycemia (33) Type 2 diabetes mellitus with hyperglycemia Surgical Problems: (1) Cyst removal (2) Hx laparoscopic cholecystectomy (3) Tonsillectomy Family History Diabetes mellitus Heart disease Social History Smoking Status: Current Every Day Smoker Alcohol Use: none Drug Use: none Marital Status: Housing Status: lives with family Occupation Status: employed Current/Historical Medications Scheduled Doxylamine-Pyridoxine (Diclegis), 1 TAB PO DIRECTED Insulin Aspart (Novolog Flexpen), 1 DOSE SC UD Insulin Glargine (Toujeo Solostar), 44 UNITS SC DAILY Lisinopril (Lisinopril), 10 MG PO DAILY Metformin Hcl Er (Glucophage Er), 1,000 MG PO BID Pancrelipase (Lipase-Protease- (Creon 31545), 36,000 UNITS PO QID Scheduled PRN Dronabinol (Marinol), 2.5 MG PO DIRECTED PRN for Nausea Tramadol HCl (Tramadol HCl), 50-100 MG PO Q4H PRN for Pain Physical Exam Vital Signs Date Time Temp Pulse Resp B/P (MAP) Pulse Ox O2 Delivery O2 Flow Rate FiO2 08/03/17 11:29 36.6 99 18 120/80 100 Room Air Physical Exam GENERAL: 36-year-old white female appears uncomfortable secondary to abdominal pain and nausea and vomiting. MOUTH: Mucosa is slightly dry. NECK: Supple, no lymphadenopathy noted. No carotid bruits noted. LUNGS: Clear auscultation without wheezes rales or rhonchi. CARDIAC: Regular rate and rhythm without murmur. Pulses is full and equal throughout. BACK: No CVA tenderness noted. ABDOMEN: Positive bowel sounds all 4 quadrants. Soft, generalized tenderness throughout. No organomegaly or masses noted. EXTREMITIES: No cyanosis or edema noted. Medical Decision & Procedures ER Provider Diagnostic Interpretation: PA CHEST WITH ABDOMINAL SERIES CLINICAL HISTORY: Generalized abdominal pain. Cramping. Nausea and vomiting. FINDINGS: A PA chest radiograph is compared to chest x-ray and chest CT dated 01/16/2017. The cardiomediastinal silhouette is unremarkable. The lungs and pleural spaces are clear. No pneumothorax is seen. The bony thorax is grossly intact. There is minimal S-shaped thoracolumbar scoliosis. Supine and erect abdominal radiographs are correlated with abdominal CT dated 01/16/2017. Cholecystectomy clips are noted. There is a nonobstructed abdominal bowel gas pattern. No evidence of intraperitoneal free air is seen. There are no abnormal abdominal calcifications. The lumbosacral spine and bony pelvis appear intact. IMPRESSION: 1. No active disease in the chest. 2. Nonobstructed abdominal bowel gas pattern. Electronically signed by: Miller Adorno M.D. 08/03/2017 12:44 PM Laboratory Results 08/03/17 12:03 Red Blood Count 5.53, Mean Corpuscular Volume 88.8, Mean Corpuscular Hemoglobin 32.7, Mean Corpuscular Hemoglobin Concent 36.9, Mean Platelet Volume 10.6, Neutrophils (%) (Auto) 64.7, Lymphocytes (%) (Auto) 28.7, Monocytes (%) (Auto) 5.4, Eosinophils (%) (Auto) 0.9, Basophils (%) (Auto) 0.2, Neutrophils # (Auto) 5.72, Lymphocytes # (Auto) 2.54, Monocytes # (Auto) 0.48, Eosinophils # (Auto) 0.08, Basophils # (Auto) 0.02 08/03/17 12:03 Test 08/03/17 12:03 White Blood Count 8.85 K/uL (4.8-10.8) Red Blood Count 5.53 M/uL (4.2-5.4) Hemoglobin 18.1 g/dL (12.0-16.0) Hematocrit 49.1 % (37-47) Mean Corpuscular Volume 88.8 fL (80-100) Mean Corpuscular Hemoglobin 32.7 pg (25-34) Mean Corpuscular Hemoglobin Concent 36.9 g/dl (32-36) Platelet Count 249 K/uL (130-400) Mean Platelet Volume 10.6 fL (7.4-10.4) Neutrophils (%) (Auto) 64.7 % Lymphocytes (%) (Auto) 28.7 % Monocytes (%) (Auto) 5.4 % Eosinophils (%) (Auto) 0.9 % Basophils (%) (Auto) 0.2 % Neutrophils # (Auto) 5.72 K/uL (1.4-6.5) Lymphocytes # (Auto) 2.54 K/uL (1.2-3.4) Monocytes # (Auto) 0.48 K/uL (0.11-0.59) Eosinophils # (Auto) 0.08 K/uL (0-0.5) Basophils # (Auto) 0.02 K/uL (0-0.2) RDW Standard Deviation 39.5 fL (36.4-46.3) RDW Coefficient of Variation 12.2 % (11.5-14.5) Immature Granulocyte % (Auto) 0.1 % Immature Granulocyte # (Auto) 0.01 K/uL (0.00-0.02) Anion Gap 7.0 mmol/L (3-11) Est Creatinine Clear Calc Drug Dose 82.8 ml/min Estimated GFR () 119.7 Estimated GFR (Non- 103.3 BUN/Creatinine Ratio 17.8 (10-20) Calcium Level 9.8 mg/dl (8.5-10.1) Total Bilirubin 0.6 mg/dl (0.2-1) Direct Bilirubin 0.1 mg/dl (0-0.2) Aspartate Amino Transf (AST/SGOT) 24 U/L (15-37) Alanine Aminotransferase (ALT/SGPT) 47 U/L (12-78) Alkaline Phosphatase 128 U/L (45-117) Total Protein 8.0 gm/dl (6.4-8.2) Albumin 4.2 gm/dl (3.4-5.0) Lipase 44 U/L (73-393) Medications Administered Medications (Trade) Dose Ordered Sig/Trino Route Start Time Stop Time Status Last Admin Dose Admin Sodium Chloride 1,000 ml @ 999 mls/hr Q1H1M STAT IV 08/03/17 11:48 08/03/17 12:48 DC 08/03/17 12:06 999 MLS/HR Ondansetron HCl (Zofran Inj) 4 mg NOW STAT IV 08/03/17 11:48 08/03/17 11:50 DC 08/03/17 12:07 4 MG ED Course The patient was evaluated. The patient's EMR medication list were reviewed. IV access was obtained. The patient was given 1 L normal saline wide-open. She was given Zofran 4 mg IV push for nausea. CBC and differential, renal profile, LFTs and lipase levels were ordered. Labs are reviewed reviewed and were unremarkable. The patient's BUN and creatinine were within normal range. The patient's lipase was actually low. The patient's blood sugar was 210. The patient has not taken any short acting insulin today. Abdominal series x-ray was ordered interpreted by the radiologist and myself as above without any evidence of obstruction. The patient was reevaluated and stated she was feeling better. The patient was discharged home in stable condition. Medical Decision The patient presented for hydration therefore no additional diagnostic imaging except for x-ray to evaluate for obstruction was performed. Differential diagnosis include acute viral gastroenteritis versus acute on chronic abdominal pain/nausea and vomiting Impression Primary Impression: Nausea, vomiting, and diarrhea Additional Impression: Abdominal pain Departure Information Dispostion Home / Self-Care Condition GOOD Referrals Aram Elise M.D. (PCP) Forms HOME CARE DOCUMENTATION FORM, IMPORTANT VISIT INFORMATION, WORK / SCHOOL INSTRUCTIONS Patient Instructions ED Nausea Vomiting, [facility] Additional Instructions Push fluids. Take small sips of water frequently. Continue your Zofran as needed for nausea. Keep follow-up appointments with your family doctor and gastroenterology for further evaluation of your chronic GI symptoms. If symptoms worsen, return to ER. Problem Qualifiers Additional Impression: Abdominal pain Abdominal location: generalized Qualified Codes: R10.84 - Generalized abdominal pain
[2017-08-03] MEDS ORDERED: HYDR-5688 PO (13:21)
[2017-08-03] MEDS ORDERED: ONDA8TAB13 SL (13:22)
[2017-08-03 13:50] VITALS: BP 106/68; PULSE 67; O2SAT 100
== END 2017-08-03 13:51 | disposition home or self-care (01) ==
LOC: C.EDB 11:28 → C.EDC 13:51
DX: R11.2 Nausea with vomiting, unspecified (principal); R19.7 Diarrhea, unspecified; R10.84 Generalized abdominal pain; K85.90 Acute pancreatitis without necrosis or infection, unspecified; K31.84 Gastroparesis; K57.92 Diverticulitis of intestine, part unspecified, without perforation or abscess without bleeding; E87.8 Other disorders of electrolyte and fluid balance, not elsewhere classified; E87.5 Hyperkalemia; E87.1 Hypo-osmolality and hyponatremia; E83.39 Other disorders of phosphorus metabolism; E87.2 Acidosis; Z86.14 Personal history of Methicillin resistant Staphylococcus aureus infection; E28.2 Polycystic ovarian syndrome; E11.65 Type 2 diabetes mellitus with hyperglycemia; Z83.3 Family history of diabetes mellitus; Z82.49 Family history of ischemic heart disease and other diseases of the circulatory system; F17.210 Nicotine dependence, cigarettes, uncomplicated; Z79.4 Long term (current) use of insulin; Z79.899 Other long term (current) drug therapy

== ENCOUNTER → 2017-08-11 | Day surgery (SDC) | payer BC, OTHER ==
[~2017-08-11] VITALS: Ht 157.5 cm; Wt 51.5 kg
[~2017-08-11] MED LIST changes: +HYDR-5688 PO; +ONDA8TAB13 SL
[2017-08-11 13:20] VITALS: BP 114/72; PULSE 118; TEMP 36.6; O2SAT 100; Ht 157.5 cm; Wt 51.5 kg
== END | disposition home or self-care (01) ==
LOC: C.MTU 13:00
PROVIDERS: ATTEND Family Medicine
DX: E86.0 Dehydration (principal); E11.43 Type 2 diabetes mellitus with diabetic autonomic (poly)neuropathy; R11.2 Nausea with vomiting, unspecified; K86.1 Other chronic pancreatitis

== ENCOUNTER 2017-08-18 19:08 | Emergency (ER) | payer BC, OTHER ==
[~2017-08-18] VITALS: Ht 157.5 cm; Wt 50.0 kg
[2017-08-18 19:23] VITALS: TEMP 37.9; Ht 157.5 cm; Wt 50.0 kg
[2017-08-18] MEDS ORDERED: PROCHLORPERAZINE 5 MG/ML 2 ML VIAL IV STA (19:37)
[2017-08-18] MEDS ORDERED: KETOROLAC TROMETHAMINE 30 MG/ML VIAL IV STA (19:37)
[2017-08-18] MEDS ORDERED: ONDANSETRON INJ 2 MG/ML 2 ML VIAL IV STA (19:37)
[2017-08-18] MEDS ORDERED: SODIUM CHLORIDE 0.9% 1000ML 1,000 ML IV STA (19:37)
[2017-08-18] MEDS ORDERED: DiphenhydrAMINE HCL 50 MG/ML VIAL IV STA (19:37)
--- NOTE | 2017-08-18 19:41 | EMERGENCY ROOM VISIT NOTE ---
History Report prepared by Azra: Nemo Roldan Under the Supervision of: Dr. Miller Melchor M.D. First contact with patient: 19:34 Chief Complaint: HYPOGLYCEMIA Stated Complaint: BLOOD SUGAR,GASTROPAROSIS, PANCREATITIS History of Present Illness The patient is a 36 year old female who presents to the Emergency Room with complaints of constant vomiting beginning at 1600 today. The patient states that she has gastroparesis and that it is flaring up. She reports that she had hypoglycemia earlier today. She has a history of pancreatitis. The patient also reports having right flank pain which she rates at a 9/10. She states that she feels she is dehydrated. The patient denies running a fever. She has vomited all her normal meds, even meds she uses for these symptoms. Source of History: patient Onset: 1600 today Position: other (global) Quality: other (vomiting ) Timing: constant Associated Symptoms: + abdominal pain (right flank pain ), No fevers Review of Systems See HPI for pertinent positives & negatives. A total of 10 systems reviewed and were otherwise negative. Past Medical & Surgical Medical Problems: (1) Abdominal pain (2) Abscess of groin, left (3) Acute abdominal pain (4) Acute abdominal pain (5) Acute diverticulitis (6) Acute on chronic pancreatitis (7) Acute pancreatitis (8) Attn Defic Nonhyperact (9) Bronchitis (10) Cellulitis (11) Dehydration (12) Dehydration (13) Diabetes (14) Hyperchloremia (15) Hyperkalemia (16) Hyponatremia (17) Hypophosphatemia (18) Intractable nausea and vomiting (19) Left lower quadrant pain (20) Metabolic acidosis (21) MRSA (22) Nausea, vomiting and diarrhea (23) Nausea, vomiting, and diarrhea (24) Pancreatitis (25) Pancreatitis (26) Pancreatitis (27) Polycystic Ovaries (28) RUQ abdominal pain (29) Tobacco abuse counseling (30) Transaminitis (31) Type 2 diabetes mellitus with hyperglycemia (32) Type 2 diabetes mellitus with hyperglycemia (33) Type 2 diabetes mellitus with hyperglycemia Surgical Problems: (1) Cyst removal (2) Hx laparoscopic cholecystectomy (3) Tonsillectomy Family History Diabetes mellitus Heart disease Social History Smoking Status: Current Every Day Smoker Alcohol Use: none Drug Use: none Marital Status: Housing Status: lives with family Occupation Status: employed Current/Historical Medications Scheduled Doxylamine-Pyridoxine (Diclegis), 1 TAB PO DIRECTED Insulin Aspart (Novolog Flexpen), 1 DOSE SC UD Insulin Glargine (Toujeo Solostar), 44 UNITS SC DAILY Lisinopril (Lisinopril), 10 MG PO QAM Metformin Hcl Er (Glucophage Er), 1,000 MG PO BID Ondansetron Odt (Zofran Odt), 8 MG SL Q6H Pancrelipase (Lipase-Protease- (Creon 39937), 36,000 UNITS PO QID Scheduled PRN Dronabinol (Marinol), 2.5 MG PO DIRECTED PRN for Nausea Hydrocodone/Acetaminophen 5MG/325MG ([place] 5MG/325MG), 1 TABLET PO Q4H PRN for Pain Tramadol HCl (Tramadol HCl), 50-100 MG PO Q4H PRN for Pain Allergies Coded Allergies: Penicillins (Verified Allergy, Severe, ANAPHYLAXIS, 08/11/17) Clindamycin (Verified Allergy, Mild, RASH, 08/11/17) Methylphenidate (Verified Adverse Reaction, Mild, NAUSEA, 08/11/17) Physical Exam Vital Signs Date Time Temp Pulse Resp B/P (MAP) Pulse Ox O2 Delivery O2 Flow Rate FiO2 08/18/17 22:26 66 16 105/74 97 08/18/17 21:01 65 08/18/17 20:53 68 16 93/53 100 Room Air 08/18/17 20:12 96 Room Air 08/18/17 19:23 37.9 112 20 135/90 100 Room Air Physical Exam GENERAL: Patient is in no acute distress. HEENT: No acute trauma, normocephalic atraumatic, mucous membranes moist, no nasal congestion, no scleral icterus. NECK: No stridor, no adenopathy, no meningismus, trachea is midline. LUNGS: Clear to auscultation bilaterally, no wheeze, no rhonchi, breath sounds equal. HEART: Mildly tachycardic with an occasional extra beat. No murmurs. ABDOMEN: Soft, mildly diffusely tender, bowel sounds positive, no hernias, no peritonitis. EXTREMITIES: No cyanosis or edema, full range of motion of all the joints without pain or difficulty, no signs for acute trauma. NEUROLOGIC: Oriented x 3, no acute motor or sensory deficits, no focal weakness. SKIN: No rash, no jaundice, no diaphoresis. Medical Decision & Procedures ER Provider Diagnostic Interpretation: Radiology results as stated below per my review and radiologist interpretation: ABDOMEN 2VIEW W/PA CHEST RTN HISTORY: 36 years-old Female ABDOMINAL PAIN/GI acute generalized abdominal pain with gastroparesis and pancreatitis COMPARISON: Radiographs 08/03/2017 TECHNIQUE: PA view of the chest with erect and supine views of the abdomen FINDINGS: Cardiomediastinal and hilar silhouettes are within normal limits. There is no pneumothorax, pleural effusion, focal airspace consolidation or overt pulmonary edema. The bones of the chest appear grossly intact. Cholecystectomy clips are noted. No pneumoperitoneum on the upright projection. Bowel gas pattern is nonobstructive. Mildly prominent nondilated loops of air-filled small bowel are seen within the midabdomen measuring up to 2.6 cm. No pneumatosis. No organomegaly or urolith. IMPRESSION: 1. Nonobstructive bowel gas pattern without pneumoperitoneum. 2. Mildly prominent nondilated air-filled loops of small bowel within the midabdomen are nonspecific and may reflect a focal ileus. 3. No acute cardiopulmonary process. The above report was generated using voice recognition software. It may contain grammatical, syntax or spelling errors. Electronically signed by: Osito Blackwell M.D. 08/18/2017 9:01 PM Dictated Date/Time: 08/18/2017 8:59 PM Laboratory Results 08/18/17 19:49 Red Blood Count 5.38, Mean Corpuscular Volume 88.7, Mean Corpuscular Hemoglobin 32.2, Mean Corpuscular Hemoglobin Concent 36.3, Mean Platelet Volume 10.5, Neutrophils (%) (Auto) 68.7, Lymphocytes (%) (Auto) 25.4, Monocytes (%) (Auto) 4.5, Eosinophils (%) (Auto) 1.0, Basophils (%) (Auto) 0.2, Neutrophils # (Auto) 11.27, Lymphocytes # (Auto) 4.16, Monocytes # (Auto) 0.74, Eosinophils # (Auto) 0.17, Basophils # (Auto) 0.03 08/18/17 19:49 Test 08/18/17 19:22 08/18/17 19:49 08/18/17 20:05 Bedside Glucose 158 mg/dl (70-90) White Blood Count 16.40 K/uL (4.8-10.8) Red Blood Count 5.38 M/uL (4.2-5.4) Hemoglobin 17.3 g/dL (12.0-16.0) Hematocrit 47.7 % (37-47) Mean Corpuscular Volume 88.7 fL (80-100) Mean Corpuscular Hemoglobin 32.2 pg (25-34) Mean Corpuscular Hemoglobin Concent 36.3 g/dl (32-36) Platelet Count 244 K/uL (130-400) Mean Platelet Volume 10.5 fL (7.4-10.4) Neutrophils (%) (Auto) 68.7 % Lymphocytes (%) (Auto) 25.4 % Monocytes (%) (Auto) 4.5 % Eosinophils (%) (Auto) 1.0 % Basophils (%) (Auto) 0.2 % Neutrophils # (Auto) 11.27 K/uL (1.4-6.5) Lymphocytes # (Auto) 4.16 K/uL (1.2-3.4) Monocytes # (Auto) 0.74 K/uL (0.11-0.59) Eosinophils # (Auto) 0.17 K/uL (0-0.5) Basophils # (Auto) 0.03 K/uL (0-0.2) RDW Standard Deviation 39.0 fL (36.4-46.3) RDW Coefficient of Variation 12.3 % (11.5-14.5) Immature Granulocyte % (Auto) 0.2 % Immature Granulocyte # (Auto) 0.03 K/uL (0.00-0.02) Anion Gap 7.0 mmol/L (3-11) Est Creatinine Clear Calc Drug Dose 82.6 ml/min Estimated GFR () 119.7 Estimated GFR (Non- 103.3 BUN/Creatinine Ratio 22.9 (10-20) Calcium Level 10.1 mg/dl (8.5-10.1) Magnesium Level 2.1 mg/dl (1.8-2.4) Total Bilirubin 0.5 mg/dl (0.2-1) Aspartate Amino Transf (AST/SGOT) 23 U/L (15-37) Alanine Aminotransferase (ALT/SGPT) 50 U/L (12-78) Alkaline Phosphatase 136 U/L (45-117) Total Protein 8.7 gm/dl (6.4-8.2) Albumin 4.4 gm/dl (3.4-5.0) Globulin 4.3 gm/dl (2.5-4.0) Albumin/Globulin Ratio 1.0 (0.9-2) Lipase 44 U/L (73-393) Urine Color YELLOW Urine Appearance CLOUDY (CLEAR) Urine pH 6.0 (4.5-7.5) Urine Specific [place] 1.010 (1.000-1.030) Urine Protein NEG (NEG) Urine Glucose (UA) 2+ (NEG) Urine Ketones NEG (NEG) Urine Occult Blood 2+ (NEG) Urine Nitrite NEG (NEG) Urine Bilirubin NEG (NEG) Urine Urobilinogen NEG (NEG) Urine Leukocyte Esterase NEG (NEG) Urine RBC 0-4 /hpf (0-4) Urine WBC 0 /hpf (0-5) Urine Epithelial Cells >30 /lpf (0-5) Urine Bacteria 3+ (NEG) Laboratory results reviewed by me. Medications Administered Medications (Trade) Dose Ordered Sig/Trino Route Start Time Stop Time Status Last Admin Dose Admin Ketorolac Tromethamine (Toradol Inj) 30 mg NOW STAT IV 08/18/17 19:37 08/18/17 19:41 DC 08/18/17 20:00 30 MG Ondansetron HCl (Zofran Inj) 4 mg NOW STAT IV 08/18/17 19:37 08/18/17 19:41 DC 08/18/17 20:00 4 MG Prochlorperazine Edisylate (Compazine Inj) 5 mg NOW STAT IV 08/18/17 19:37 08/18/17 19:41 DC 08/18/17 20:00 5 MG Diphenhydramine HCl (Benadryl Inj) 25 mg NOW STAT IV 08/18/17 19:37 08/18/17 19:41 DC 08/18/17 20:00 25 MG Sodium Chloride 1,000 ml @ 999 mls/hr Q1H1M STAT IV 08/18/17 19:37 08/18/17 20:37 DC 08/18/17 20:00 999 MLS/HR ED Course 193: The patient was evaluated in room B8. A complete history and physical exam was performed. 1936: Ordered Sodium Chloride 1,000 ml @ 999 mls/hr IV, Benadryl Inj 25 mg IV, Compazine Inj 5 mg IV, Zofran Inj 4 mg IV, Toradol Inj 30 mg IV. 2149: I checked on the patient and reevaluated her. She says she is feeling better and would like to go home. 2218: Discussed results and discharge instructions: She verbalized understanding and agreement. The patient is ready for discharge. Medical Decision The patient is a 36 year old female who presents to the ED with complaints of vomiting. Differential diagnoses considered include gastroparesis, dehydration , electrolyte imbalance, bowel obstruction, pancreatitis, anemia, and infection. There is a moderate leukocytosis, this could be consistent with infection or the stress of all her vomiting. No concerning anemia. No significant electrolyte abnormality, kidney failure or hepatitis. No evidence for pancreatitis. Obstruction series does not show pneumonia, or free air or bowel obstruction. An ileus was suspected. Urinalysis does not show infection but more so contamination. On exam, the patient was not toxic. There was no peritonitis. The patient has been to our hospital before for similar complaints. She did receive IV saline, IV Zofran, IV Phenergan and IV Benadryl. She was given IV Toradol. She feels markedly improved. Given her presentation, given the leukocytosis, I did talk about a hospital stay. The patient does not want to stay in the hospital. She feels that she is improved and she would like to be discharged home. The patient states that she will return if not continuing to improve at home, she will return if worsening. The patient appears to be having a flare of her gastroparesis. She was dehydrated. She had a very slight temperature elevation and certainly, this could indicate the start of a viral illness, she understands her situation and is being discharged at her request. Medication Reconcilliation Current Medication List: was personally reviewed by me Blood Pressure Screening Patient's blood pressure: Normal blood pressure Impression Primary Impression: Nausea & vomiting Additional Impressions: Dehydration Gastroparesis Leukocytosis Scribe Attestation The scribe's documentation has been prepared under my direction and personally reviewed by me in its entirety. I confirm that the note above accurately reflects all work, treatment, procedures, and medical decision making performed by me. Departure Information Dispostion Home / Self-Care Referrals Aram Elise M.D. (PCP) Forms HOME CARE DOCUMENTATION FORM, IMPORTANT VISIT INFORMATION, WORK / SCHOOL INSTRUCTIONS Patient Instructions [facility] Additional Instructions meds as before slowly increase your diet and fluid intake return for fever, worsening pain or lack of improvement no bowel obstruction noted by xray today your white count was elevated as we discussed Problem Qualifiers
[2017-08-18 20:02] LABS: BASO % 0.2 %; BASO ABS # 0.03 K/uL (0-0.2); EOS ABS # 0.17 K/uL (0-0.5); HEMATOCRIT 47.7 % (37-47); HEMOGLOBIN 17.3 g/dL (12.0-16.0); IG# 0.03 K/uL (0.00-0.02); LYMPH % 25.4 %; LYMPH ABS # 4.16 K/uL (1.2-3.4); MEAN CELL VOLUME 88.7 fL (80-100); MEAN CORPUSCULAR HEMOGLOBIN 32.2 pg (25-34); MEAN CORPUSCULAR HGB CONC 36.3 g/dl (32-36); MEAN PLATELET VOLUME 10.5 fL (7.4-10.4); MONO % 4.5 %; MONO ABS # 0.74 K/uL (0.11-0.59); NEUT % 68.7 %; NEUT ABS # 11.27 K/uL (1.4-6.5); PLATELET COUNT 244 K/uL (130-400); RED CELL DISTRIBUTION WIDTH CV 12.3 % (11.5-14.5)
[2017-08-18 20:12] VITALS: O2SAT 96
[2017-08-18 20:27] LABS: ALBUMIN 4.4 gm/dl (3.4-5.0); CALCIUM 10.1 mg/dl (8.5-10.1); CREATININE 0.75 mg/dl (0.60-1.20); POTASSIUM 3.6 mmol/L (3.5-5.1)
[2017-08-18 20:30] LABS: TOTAL PROTEIN 8.7 gm/dl (6.4-8.2)
--- NOTE | 2017-08-18 21:03 | DIAGNOSTIC IMAGING REPORT ---
ABDOMEN 2VIEW W/PA CHEST RTN HISTORY: 36 years-old Female ABDOMINAL PAIN/GI acute generalized abdominal pain with gastroparesis and pancreatitis COMPARISON: Radiographs 08/03/2017 TECHNIQUE: PA view of the chest with erect and supine views of the abdomen FINDINGS: Cardiomediastinal and hilar silhouettes are within normal limits. There is no pneumothorax, pleural effusion, focal airspace consolidation or overt pulmonary edema. The bones of the chest appear grossly intact. Cholecystectomy clips are noted. No pneumoperitoneum on the upright projection. Bowel gas pattern is nonobstructive. Mildly prominent nondilated loops of air-filled small bowel are seen within the midabdomen measuring up to 2.6 cm. No pneumatosis. No organomegaly or urolith. IMPRESSION: 1. Nonobstructive bowel gas pattern without pneumoperitoneum. 2. Mildly prominent nondilated air-filled loops of small bowel within the midabdomen are nonspecific and may reflect a focal ileus. 3. No acute cardiopulmonary process. The above report was generated using voice recognition software. It may contain grammatical, syntax or spelling errors. Electronically signed by: Osito Blackwell M.D. 08/18/2017 9:01 PM Dictated Date/Time: 08/18/2017 8:59 PM
[2017-08-18 22:26] VITALS: BP 105/74; PULSE 66; O2SAT 97
== END 2017-08-18 22:34 | disposition home or self-care (01) ==
LOC: C.EDB 19:10
DX: E11.43 Type 2 diabetes mellitus with diabetic autonomic (poly)neuropathy (principal); E86.0 Dehydration; D72.829 Elevated white blood cell count, unspecified; F90.9 Attention-deficit hyperactivity disorder, unspecified type; Z90.49 Acquired absence of other specified parts of digestive tract; Z83.3 Family history of diabetes mellitus; F17.210 Nicotine dependence, cigarettes, uncomplicated; Z79.4 Long term (current) use of insulin; Z79.899 Other long term (current) drug therapy

== ENCOUNTER → 2017-09-07 | Outpatient (CLI) | payer BC, OTHER ==
[~2017-09-07] MED LIST changes: +GADAVIST IV PRN; -METF500T5 PO; -ULT50 PO
--- NOTE | 2017-09-07 17:45 | DIAGNOSTIC IMAGING REPORT ---
MRI ABDOMEN COMBO CLINICAL HISTORY: Pancreatitis, gastroparesis, nausea and vomiting. TECHNIQUE: Imaging was performed prior to and following IV contrast injection. The patient was injected with 5 cc of intravenous Gadavist. COMPARISON STUDY: CT scan performed January 2017 FINDINGS: Imaging was performed in the axial, and coronal planes. No hepatic or splenic masses are visualized. The gallbladder is surgically absent. No renal masses are visualized. There is no hydronephrosis. The pancreas appears atrophic. No pancreatic masses are visualized. There are no peripancreatic fluid collections. There is no pancreatic ductal dilatation. There is no biliary ductal dilatation. No adrenal masses are visualized. There are no pathologically enlarged upper abdominal lymph nodes. There is no evidence of abdominal aortic aneurysm. There are no pathologically enhancing lesions. IMPRESSION: 1. No acute findings 2. No evidence of biliary or pancreatic ductal dilatation 3. No pathologic masses identified 4. No peripancreatic inflammatory changes identified Electronically signed by: Issa Sebastian M.D. 09/07/2017 5:44 PM Dictated Date/Time: 09/07/2017 5:39 PM
== END | disposition home or self-care (01) ==
LOC: C.MRI 15:51
PROVIDERS: ATTEND Internal Medicine Gastroenterology
DX: R11.0 Nausea (principal)

== ENCOUNTER → 2017-09-09 | Outpatient (CLI) | payer BC, OTHER ==
[~2017-09-09] MED LIST changes: -GADAVIST IV PRN
--- NOTE | 2017-09-09 13:19 | DIAGNOSTIC IMAGING REPORT ---
Nuclear gastric emptying study: CLINICAL HISTORY: NAUSEA COMPARISON STUDY: None. TECHNIQUE: Following the oral administration of 1.089 mCi of technetium 99m sulfur colloid in egg sandwich and 8 ounces of water, static abdominal images were obtained anteriorly and posteriorly at 0 minutes, 1 hour, 2 hour, and 4 hour time intervals. Gastric emptying was calculated utilizing the geometric mean method. FINDINGS: There is approximately 83% gastric activity remaining at the 1 hour time interval (normal is less than 90%), 49% at the 2 hour time interval (normal is less than 60%), and 13% remaining at the 4 hour time interval (normal is less than 10%). IMPRESSION: Mildly delayed gastric emptying at the 4 hour time point. Electronically signed by: Jonathan Armstrong M.D. 09/09/2017 1:18 PM Dictated Date/Time: 09/09/2017 1:16 PM
== END | disposition home or self-care (01) ==
LOC: C.NUCL 08:32
PROVIDERS: ATTEND Internal Medicine Gastroenterology
DX: R11.0 Nausea (principal)

== ENCOUNTER 2017-11-24 13:15 | Emergency (ER) | payer BC, OTHER ==
[~2017-11-24] VITALS: Ht 157.5 cm; Wt 51.3 kg
[2017-11-24 13:21] VITALS: TEMP 36.9; Ht 157.5 cm; Wt 51.3 kg
[2017-11-24] MEDS ORDERED: ONDANSETRON INJ 2 MG/ML 2 ML VIAL IV STA (13:35)
[2017-11-24] MEDS ORDERED: SODIUM CHLORIDE 0.9% 1000ML 1,000 ML IV STA (13:35)
[2017-11-24 13:57] LABS: BASO % 0.4 %; BASO ABS # 0.03 K/uL (0-0.2); EOS % 1.6 %; EOS ABS # 0.11 K/uL (0-0.5); HEMATOCRIT 42.8 % (37-47); HEMOGLOBIN 15.5 g/dL (12.0-16.0); IG# 0.01 K/uL (0.00-0.02); LYMPH % 26.7 %; LYMPH ABS # 1.88 K/uL (1.2-3.4); MEAN CELL VOLUME 87.5 fL (80-100); MEAN CORPUSCULAR HEMOGLOBIN 31.7 pg (25-34); MEAN CORPUSCULAR HGB CONC 36.2 g/dl (32-36); MEAN PLATELET VOLUME 9.1 fL (7.4-10.4); MONO % 5.8 %; MONO ABS # 0.41 K/uL (0.11-0.59); NEUT % 65.4 %; PLATELET COUNT 203 K/uL (130-400); RED CELL DISTRIBUTION WIDTH CV 12.6 % (11.5-14.5); RED CELL DISTRIBUTION WIDTH SD 40.6 fL (36.4-46.3); WHITE BLOOD COUNT 7.04 K/uL (4.8-10.8)
[2017-11-24 14:14] LABS: ALBUMIN 3.7 gm/dl (3.4-5.0); CALCIUM 8.8 mg/dl (8.5-10.1); CREATININE 0.51 mg/dl (0.60-1.20); POTASSIUM 4.4 mmol/L (3.5-5.1)
[2017-11-24 14:17] LABS: TOTAL PROTEIN 7.3 gm/dl (6.4-8.2)
[2017-11-24] MEDS ORDERED: SCOP1.5D2 TD (14:25)
[2017-11-24] MEDS ORDERED: ATR10 PO (14:25)
[2017-11-24] MEDS ORDERED: INSU100I23 SC (14:25)
[2017-11-24] MEDS ORDERED: BUPR10DI TD (14:25)
[2017-11-24 15:41] VITALS: BP 126/92; PULSE 63; O2SAT 95
--- NOTE | 2017-11-24 19:27 | EMERGENCY ROOM VISIT NOTE ---
ED Visit Note First contact with patient: 13:24 Chief Complaint: Dehydrated from vomiting. History of Present Illness: Ms. Cooper is a 37-year-old white female who ambulates into the ED complaining of abdominal pain, dehydration and nausea and vomiting. Patient was referred to the ED from Ms. Allen, Diabetic Office, [facility], for evaluation symptoms concerning for pancreatitis. Historically patient reports she is an insulin-dependent diabetic, chronic pancreatitis, diverticulitis, polycystic ovary disease and she is status post cholecystectomy and ovarian cyst surgery Patient reports approximately 1 week ago she had her long-acting insulin changed term from NovoLog to Basaglar. She reports immediately after eating this change in medication she has been struggling with hypoglycemia and then has developed nausea and vomiting. She has difficulty eating and drinking because of her symptoms and she has had developed abdominal and bilateral flank pain for the last 3-4 days. Currently she is reports that she has mid abdominal pain with radiation into the bilateral flanks and into her lower abdomen. She describes her pain as a sharp sensation. Her pain is constant. She has not identified any aggravating or alleviating factors related to her discomfort. She has been using her prescribed medications for her symptoms but because of her nausea and vomiting she has not been able to keep her medications down. Associated with her pain as previously noted she has been having nausea and vomiting. Patient denies fevers, chills, sweats, skin eruptions, skin color changes, headache, dizziness, lightheadedness, upper respiratory tract symptoms, cough, wheezing, shortness of breath, diarrhea, constipation, rectal bleeding, black/ tarry stools, urinary symptoms, hematuria. Review of Systems: As noted above in history of present illness. All body systems were reviewed and found to be negative as noted above. Past Medical History: As previously noted and attention deficit disorder, bronchitis, cellulitis, electrolyte abnormalities, metabolic acidosis, MRSA infection, transaminitis and status post tonsillectomy. Current Medications: Medications Dose Route/Sig Max Daily Dose Days Date Category Dose Instructions Transderm-Scop (Scopolamine) 1 Mg/3 Days Dis 1 Patch TD [id number] 11/24/17 Reported Hydroxyzine HCl 10 Mg Tab 10 Mg PO QID PRN 11/24/17 Reported Buprenorphine 10 Mcg/Hr Dis 1 Patch TD WK 11/24/17 Reported Basaglar Kwikpen (Insulin Glargine) 100 Unit/Ml Inj 44 Units SC HS 11/24/17 Reported Zofran Odt (Ondansetron HCl) 8 Mg Tab 8 Mg SL Q6H 08/03/17 Reported [place] 5MG/325MG (Acetaminophen/Hydrocodone Bitart) Tab 1 Tablet PO Q4H PRN 08/03/17 Reported PRN PAIN Marinol (Dronabinol) 2.5 Mg Cap 2.5 Mg PO DIRECTED PRN 07/02/17 Reported Diclegis (Doxylamine-Pyridoxine) 1 Tab Tab 1 Tab PO DIRECTED 07/02/17 Reported 10-10MG Novolog Flexpen (Insulin Aspart) 100 Units/Ml Inj 1 Dose SC UD 03/06/17 Reported COVERAGE DIRECTED BY SLIDING SCALE Creon [id number] (Pancrelipase (Lipase-Protease-) 1 Cap Cap 36,000 Units PO QID 04/11/15 Reported BEFORE MEALS Allergies to Medications: Clindamycin, penicillin and methylphenidate. Social History: Patient is currently employed; she feels safe in her home environment; she admits to tobacco use and denies alcohol use. Physical Examination: Vital Signs: Date Time Temp Pulse Resp B/P (MAP) Pulse Ox O2 Delivery O2 Flow Rate FiO2 11/24/17 15:41 63 20 126/92 95 11/24/17 14:06 74 18 121/78 99 Room Air 11/24/17 14:00 66 11/24/17 13:21 36.9 70 20 132/86 99 Room Air GENERAL: 37-year-old female in mild to moderate distress due to pain and symptoms, nontoxic-appearing, afebrile and hemodynamically stable. NEUROLOGICAL: Awake, alert and oriented to person, place and time. Answering questions appropriately and following commands. Normal gait. Good hand eye coordination. No focal motor sensory deficits. SKIN: Warm, dry and pink. No soft tissue eruptions or trauma noted. HEENT: Atraumatic and normocephalic. PERRLA. Sclera white and conjunctiva pink. No drainage from naris. Oral cavity moist and pink. Pharynx is nonerythematous or edematous. Speech normal. No lymphadenopathy. Trachea midline. No jugular venous distention. BACK: No tenderness over the bony spine. No CVA tenderness. THORAX: Lungs sounds are clear to auscultation and equal bilaterally with symmetrical chest wall. No wheezing, rales or rhonchi. No crepitus, tenderness , subcutaneous air or deformities noted. HEART: Regular rate and rhythm. No gallops, rubs or murmurs are appreciated. ABDOMEN: Flat and soft mild to moderate tenderness over the bilateral upper abdomens towards the umbilicus. Positive bowel sounds in all quadrants. No guarding, rigidity or organomegaly. EXTREMITIES: Moves all extremities well on command and with purpose. All distal neurovascular statuses are intact and equal bilaterally. ED Course: Patient is assessed as noted above. Patient's medication list was reviewed. Laboratory Testing: Test 11/24/17 13:40 11/24/17 13:48 Range/Units Urine Color YELLOW Urine Appearance CLOUDY CLEAR Urine pH 7.5 4.5-7.5 Urine Specific [place] 1.015 1.000-1.030 Urine Protein NEG NEG Urine Glucose (UA) 3+ NEG Urine Ketones 2+ NEG Urine Occult Blood NEG NEG Urine Nitrite NEG NEG Urine Bilirubin NEG NEG Urine Urobilinogen NEG NEG Urine Leukocyte Esterase NEG NEG Urine RBC 0-4 0-4 /hpf Urine WBC 1-5 0-5 /hpf Urine Epithelial Cells >30 0-5 /lpf Urine Bacteria 1+ NEG White Blood Count 7.04 4.8-10.8 K/uL Red Blood Count 4.89 4.2-5.4 M/uL Hemoglobin 15.5 12.0-16.0 g/dL Hematocrit 42.8 37-47 % Mean Corpuscular Volume 87.5 80-100 fL Mean Corpuscular Hemoglobin 31.7 25-34 pg Mean Corpuscular Hemoglobin Concent 36.2 32-36 g/dl Platelet Count 203 130-400 K/uL Mean Platelet Volume 9.1 7.4-10.4 fL Neutrophils (%) (Auto) 65.4 % Lymphocytes (%) (Auto) 26.7 % Monocytes (%) (Auto) 5.8 % Eosinophils (%) (Auto) 1.6 % Basophils (%) (Auto) 0.4 % Neutrophils # (Auto) 4.60 1.4-6.5 K/uL Lymphocytes # (Auto) 1.88 1.2-3.4 K/uL Monocytes # (Auto) 0.41 0.11-0.59 K/uL Eosinophils # (Auto) 0.11 0-0.5 K/uL Basophils # (Auto) 0.03 0-0.2 K/uL RDW Standard Deviation 40.6 36.4-46.3 fL RDW Coefficient of Variation 12.6 11.5-14.5 % Immature Granulocyte % (Auto) 0.1 % Immature Granulocyte # (Auto) 0.01 0.00-0.02 K/uL Sodium Level 134 136-145 mmol/L Potassium Level 4.4 3.5-5.1 mmol/L Chloride Level 101 98-107 mmol/L Carbon Dioxide Level 25 21-32 mmol/L Anion Gap 8.0 3-11 mmol/L Blood Urea Nitrogen 10 7-18 mg/dl Creatinine 0.51 0.60-1.20 mg/dl Est Creatinine Clear Calc Drug Dose 120.6 ml/min Estimated GFR () 143.4 Estimated GFR (Non- 123.7 BUN/Creatinine Ratio 18.9 10-20 Random Glucose 202 70-99 mg/dl Calcium Level 8.8 8.5-10.1 mg/dl Total Bilirubin 0.6 0.2-1 mg/dl Direct Bilirubin 0.2 0-0.2 mg/dl Aspartate Amino Transf (AST/SGOT) 42 15-37 U/L Alanine Aminotransferase (ALT/SGPT) 59 12-78 U/L Alkaline Phosphatase 344 45-117 U/L Total Protein 7.3 6.4-8.2 gm/dl Albumin 3.7 3.4-5.0 gm/dl Lipase 103 73-393 U/L Human Chorionic Gonadotropin, Qual NEG NEG Patient was hydrated with normal saline and received 4 mg of Zofran IV; patient was offered narcotics for pain control and refused. Patient was reassessed multiple times during her stay in the emergency department. Patient was trialed on douglas lesley and was able to successfully drink the douglas lesley without return of nausea/vomiting. Patient's case was reviewed with Dr. Brand; we agreed on diagnostic approach, treatment, disposition and plan. Patient was educated about today's findings and instructed on her treatment plan ; she verbalized understanding and agreement with this plan. Clinical Impression: Irretractable nausea and vomiting. Abdominal pain. Decision-Making: Initially in my evaluation I considered exacerbation of pancreatitis, hepatitis, retained calculus, gastroenteritis, gastritis and other causes. Disposition: Patient discharged home in stable condition; prior to departure she was reassessed and subjectively reported she was feeling better. She reported control of nausea with no recurrent episodes of vomiting and rated her discomfort 6/10. Plan: Patient was encouraged to try to stay well-hydrated with increased clear fluids and to continue her current medications. Patient was encouraged to considered a bland liquid diet for the next 48 hours. Patient was encouraged to follow-up with her software test analyst for follow-up care and treatment. Patient was encouraged to return to the ED for worsening/uncontrolled nausea/ vomiting, worsening pain, fevers, bloody vomitus, bloody stools or any new/ concerning symptoms.
== END 2017-11-24 15:40 | disposition home or self-care (01) ==
LOC: C.EDB 13:17 → C.EDA 15:40
DX: R11.2 Nausea with vomiting, unspecified (principal); R10.9 Unspecified abdominal pain; E11.9 Type 2 diabetes mellitus without complications; F90.9 Attention-deficit hyperactivity disorder, unspecified type; K86.1 Other chronic pancreatitis; Z90.49 Acquired absence of other specified parts of digestive tract; Z79.4 Long term (current) use of insulin; Z79.899 Other long term (current) drug therapy; Z86.14 Personal history of Methicillin resistant Staphylococcus aureus infection

== ENCOUNTER 2017-11-25 08:00 | Emergency (ER) | payer OTHER ==
[~2017-11-25] VITALS: Ht 157.5 cm; Wt 51.9 kg
[~2017-11-25 08:00] MED LIST changes: +ATR10 PO; +BUPR10DI TD; +INSU100I23 SC; +SCOP1.5D2 TD
[2017-11-25 08:18] VITALS: TEMP 36.9; Ht 157.5 cm; Wt 51.9 kg
[2017-11-25] MEDS ORDERED: SODIUM CHLORIDE 0.9% 1000ML 2,000 ML IV STA (08:28)
[2017-11-25] MEDS ORDERED: ONDANSETRON INJ 2 MG/ML 2 ML VIAL IV STA (08:28)
[2017-11-25 08:48] LABS: BASO % 0.3 %; BASO ABS # 0.02 K/uL (0-0.2); EOS % 1.3 %; EOS ABS # 0.08 K/uL (0-0.5); HEMATOCRIT 41.5 % (37-47); HEMOGLOBIN 15.2 g/dL (12.0-16.0); LYMPH % 22.2 %; LYMPH ABS # 1.37 K/uL (1.2-3.4); MEAN CELL VOLUME 87.2 fL (80-100); MEAN CORPUSCULAR HEMOGLOBIN 31.9 pg (25-34); MEAN CORPUSCULAR HGB CONC 36.6 g/dl (32-36); MEAN PLATELET VOLUME 9.6 fL (7.4-10.4); MONO % 4.2 %; MONO ABS # 0.26 K/uL (0.11-0.59); NEUT ABS # 4.45 K/uL (1.4-6.5); PLATELET COUNT 198 K/uL (130-400); RED CELL DISTRIBUTION WIDTH CV 12.4 % (11.5-14.5); RED CELL DISTRIBUTION WIDTH SD 40.3 fL (36.4-46.3); WHITE BLOOD COUNT 6.18 K/uL (4.8-10.8)
[2017-11-25 09:02] LABS: ALBUMIN 3.7 gm/dl (3.4-5.0); CALCIUM 9.2 mg/dl (8.5-10.1); CREATININE 0.52 mg/dl (0.60-1.20); POTASSIUM 4.4 mmol/L (3.5-5.1)
[2017-11-25 09:05] LABS: TOTAL PROTEIN 7.4 gm/dl (6.4-8.2)
[2017-11-25] MEDS ORDERED: DICYCLOMINE HCL 10 MG/ML 2 ML AMP IM ONE (09:15)
[2017-11-25] MEDS ORDERED: KETOROLAC TROMETHAMINE 30 MG/ML VIAL IV STA (09:15)
[2017-11-25 11:05] VITALS: BP 122/70; PULSE 68; O2SAT 98
--- NOTE | 2017-11-25 16:22 | EMERGENCY ROOM VISIT NOTE ---
History First contact with patient: 08:17 Chief Complaint: DEHYDRATION Stated Complaint: DEHYRATION,PAIN,VOMITING History of Present Illness The patient is a 37 year old female, history of insulin-dependent diabetes, chronic pancreatitis with frequent nausea and vomiting, who presents to the Emergency Room with complaints of nausea, vomiting, abdominal cramping and single episode of watery diarrhea. The patient reports that she was just here yesterday with similar symptoms. The patient attributes her symptoms to multiple causes. She reports that her insulin dosing was recently changed. She was provided a prescription for a scopolamine patch, in addition to Zofran ODT that she takes at home for nausea. The patient reports that she also had a recent abdominal MRI and gastric emptying study that was ordered by her absorber operator, Dr. Sunshine. She has an appointment to see Dr. Sharma in 1 month. The patient also is scheduled to see an restaurant hostess. The patient reports that after returning home yesterday, she developed nausea and vomiting again that was not being controlled by her medications. The patient reports feeling extremely dehydrated again. She denies any other recent antibiotic use , fevers or chills. She denies back pain, headache or urinary symptoms. Review of Systems HEENT: Denies dizziness, visual problems, hearing loss, tinnitus. Denies difficulty swallowing or oral lesions. PULMONARY: Denies cough, shortness of breath, sputum production or hemoptysis. CARDIOVASCULAR: Denies chest pain, palpitations, dyspnea on exertion, orthopnea or peripheral edema. GASTROINTESTINAL: See HPI. GENITOURINARY: Denies dysuria, frequency, urgency or nocturia. NEUROLOGIC: Denies history of epilepsy, CVA, TIA or chronic headaches. MUSCULOSKELETAL: Denies history of joint tenderness/swelling. SKIN: Denies rashes or lesions. PSYCHIATRIC: Denies history of depression. ENDOCRINE: History of diabetes. Denies thyroid disorders. Past Medical/Surgical History Medical Problems: (1) Abdominal pain (2) Abscess of groin, left (3) Acute abdominal pain (4) Acute abdominal pain (5) Acute diverticulitis (6) Acute on chronic pancreatitis (7) Acute pancreatitis (8) Attn Defic Nonhyperact (9) Bronchitis (10) Cellulitis (11) Dehydration (12) Dehydration (13) Diabetes (14) Hyperchloremia (15) Hyperkalemia (16) Hyponatremia (17) Hypophosphatemia (18) Intractable nausea and vomiting (19) Left lower quadrant pain (20) Metabolic acidosis (21) MRSA (22) Nausea, vomiting and diarrhea (23) Nausea, vomiting, and diarrhea (24) Pancreatitis (25) Pancreatitis (26) Pancreatitis (27) Polycystic Ovaries (28) RUQ abdominal pain (29) Tobacco abuse counseling (30) Transaminitis (31) Type 2 diabetes mellitus with hyperglycemia (32) Type 2 diabetes mellitus with hyperglycemia (33) Type 2 diabetes mellitus with hyperglycemia Surgical Problems: (1) Cyst removal (2) Hx laparoscopic cholecystectomy (3) Tonsillectomy Family History Diabetes mellitus Heart disease Social History Smoking Status: Current Every Day Smoker Alcohol Use: none Drug Use: none Marital Status: Housing Status: lives with family Occupation Status: employed Current/Historical Medications Scheduled Buprenorphine (Buprenorphine), 1 PATCH TD WK Doxylamine-Pyridoxine (Diclegis), 1 TAB PO DIRECTED Insulin Aspart (Novolog Flexpen), 1 DOSE SC UD Ondansetron Odt (Zofran Odt), 8 MG SL Q6H Pancrelipase (Lipase-Protease- (Creon [id number]), 36,000 UNITS PO QID Scopolamine (Transderm-Scop), 1 PATCH TD CQ72HR Scheduled PRN Dronabinol (Marinol), 2.5 MG PO DIRECTED PRN for Nausea Hydrocodone/Acetaminophen 5MG/325MG ([place] 5MG/325MG), 1 TABLET PO Q4H PRN for Pain Hydroxyzine HCl (Hydroxyzine HCl), 10 MG PO QID PRN for Anxiety Physical Exam Vital Signs Date Time Temp Pulse Resp B/P (MAP) Pulse Ox O2 Delivery O2 Flow Rate FiO2 11/25/17 11:05 68 18 122/70 98 Room Air 11/25/17 08:18 36.9 96 18 139/102 96 Room Air Physical Exam CONSTITUTIONAL: Thin appearing female, alert and oriented X 3 with positive affect. Patient is crying. She does not appear acutely ill or toxic. HEENT: Normocephalic, atraumatic. Pupils equal, round and reactive. Ears and nares are clear. No scleral icterus or conjunctival injection. OROPHARYNX: Mucous membranes are dry. No tonsillar hypertrophy or exudates. NECK: Full active range of motion without discomfort. RESPIRATORY: Clear to auscultation bilaterally with no wheezing, crackles, rhonchi or stridor. CARDIOVASCULAR: Regular rate and rhythm with no murmurs, rubs or gallops. GASTROINTESTINAL: Bowel sounds present in all quadrants. Patient has diffuse nonfocal tenderness to palpation of the abdomen. No rigidity, guarding or rebound. Negative CVA tenderness. MUSCULOSKELETAL: Full range of motion of all joints without discomfort. INTEGUMENTARY: No rash or other significant dermatologic conditions noted. HEMATOLOGIC: No ecchymosis or petechiae noted. NEUROLOGIC: No focal neurologic deficits noted. Medical Decision & Procedures Laboratory Results 11/25/17 08:35 Red Blood Count 4.76, Mean Corpuscular Volume 87.2, Mean Corpuscular Hemoglobin 31.9, Mean Corpuscular Hemoglobin Concent 36.6, Mean Platelet Volume 9.6, Neutrophils (%) (Auto) 72.0, Lymphocytes (%) (Auto) 22.2, Monocytes (%) (Auto) 4.2, Eosinophils (%) (Auto) 1.3, Basophils (%) (Auto) 0.3, Neutrophils # (Auto) 4.45, Lymphocytes # (Auto) 1.37, Monocytes # (Auto) 0.26, Eosinophils # (Auto) 0.08, Basophils # (Auto) 0.02 11/25/17 08:35 Test 11/25/17 08:35 11/25/17 09:30 White Blood Count 6.18 K/uL (4.8-10.8) Red Blood Count 4.76 M/uL (4.2-5.4) Hemoglobin 15.2 g/dL (12.0-16.0) Hematocrit 41.5 % (37-47) Mean Corpuscular Volume 87.2 fL (80-100) Mean Corpuscular Hemoglobin 31.9 pg (25-34) Mean Corpuscular Hemoglobin Concent 36.6 g/dl (32-36) Platelet Count 198 K/uL (130-400) Mean Platelet Volume 9.6 fL (7.4-10.4) Neutrophils (%) (Auto) 72.0 % Lymphocytes (%) (Auto) 22.2 % Monocytes (%) (Auto) 4.2 % Eosinophils (%) (Auto) 1.3 % Basophils (%) (Auto) 0.3 % Neutrophils # (Auto) 4.45 K/uL (1.4-6.5) Lymphocytes # (Auto) 1.37 K/uL (1.2-3.4) Monocytes # (Auto) 0.26 K/uL (0.11-0.59) Eosinophils # (Auto) 0.08 K/uL (0-0.5) Basophils # (Auto) 0.02 K/uL (0-0.2) RDW Standard Deviation 40.3 fL (36.4-46.3) RDW Coefficient of Variation 12.4 % (11.5-14.5) Immature Granulocyte % (Auto) 0.0 % Immature Granulocyte # (Auto) 0.00 K/uL (0.00-0.02) Anion Gap 6.0 mmol/L (3-11) Est Creatinine Clear Calc Drug Dose 118.3 ml/min Estimated GFR () 142.5 Estimated GFR (Non- 122.9 BUN/Creatinine Ratio 16.6 (10-20) Calcium Level 9.2 mg/dl (8.5-10.1) Total Bilirubin 0.5 mg/dl (0.2-1) Direct Bilirubin 0.1 mg/dl (0-0.2) Aspartate Amino Transf (AST/SGOT) 31 U/L (15-37) Alanine Aminotransferase (ALT/SGPT) 52 U/L (12-78) Alkaline Phosphatase 320 U/L (45-117) Total Protein 7.4 gm/dl (6.4-8.2) Albumin 3.7 gm/dl (3.4-5.0) Lipase 66 U/L (73-393) Urine Color YELLOW Urine Appearance CLEAR (CLEAR) Urine pH 8.0 (4.5-7.5) Urine Specific [place] 1.020 (1.000-1.030) Urine Protein NEG (NEG) Urine Glucose (UA) 3+ (NEG) Urine Ketones 2+ (NEG) Urine Occult Blood NEG (NEG) Urine Nitrite NEG (NEG) Urine Bilirubin NEG (NEG) Urine Urobilinogen NEG (NEG) Urine Leukocyte Esterase NEG (NEG) Urine Opiates Screen NEG (NEG) Urine Methadone, Qualitative NEG (NEG) Urine Barbiturates NEG (NEG) Urine Phencyclidine (PCP) Level NEG (NEG) Ur Amphetamine/Methamphetamine NEG (NEG) MDMA (Ecstasy) Screen NEG (NEG) Urine Benzodiazepines Screen NEG (NEG) Urine Cocaine Metabolite NEG (NEG) Urine Marijuana (THC) POS (NEG) The above labs were reviewed. Glucose is 208. Alkaline phosphatase is elevated at 320, otherwise LFTs, lipase and electrolytes are grossly normal. Urinalysis shows no evidence for infection. Urine drug screen is positive for marijuana. Patient reports that she takes dronabinol. Medications Administered Medications (Trade) Dose Ordered Sig/Trino Route Start Time Stop Time Status Last Admin Dose Admin Sodium Chloride 2,000 ml @ 999 mls/hr Q2H1M STAT IV 11/25/17 08:28 11/25/17 10:28 DC 11/25/17 08:44 999 MLS/HR Ondansetron HCl (Zofran Inj) 8 mg NOW STAT IV 11/25/17 08:28 11/25/17 08:30 DC 11/25/17 08:44 8 MG Dicyclomine HCl (Bentyl Inj) 20 mg NOW ONCE IM 11/25/17 09:15 11/25/17 09:16 DC 11/25/17 09:37 20 MG Ketorolac Tromethamine (Toradol Inj) 30 mg NOW STAT IV 11/25/17 09:15 11/25/17 09:16 DC 11/25/17 09:38 30 MG Procedure 1. IV hydration: The patient was administered a normal saline 2 L bolus 2. IV medications: Zofran 8 mg IVP ED Course Patient history and physical exam were performed. Nurse's notes were reviewed. Vital signs were reviewed. Blood pressure is 139/102. Pulse rate is 96. Patient is afebrile. I also reviewed documentation from yesterday's visit where she had an extensive workup with relatively normal labs. The patient had no evidence for pancreatitis. She was mildly hyponatremic at 134. Urinalysis was not suggestive of infection. Review of prior history also shows history of marijuana use. Her last urine drug screen was in September 2016 when she was positive for noroxycodone, oxycodone, oxymorphone, hydromorphone and marijuana. Review of the [place] Prescription Drug Monitoring Program shows that the patient is currently on buprenorphine and oxycodone solution. She receives her prescriptions through a pain clinic. IV access was established, and labs were drawn. The patient was hydrated with 2 L of normal saline, and was administered Zofran 8 mg IVP. Review of labs did not show any significant abnormalities. Urine drug screen is positive for marijuana, however the patient reports that she is currently taking dronabinol. The patient reports improvement of symptoms, and felt well enough for discharge home. The patient was encouraged to rest and remain well-hydrated. The patient does have a nausea medicine at home. She was encouraged to follow-up with her PCP and absorber operator for further management. She was instructed to return to the emergency department for any progressively worsening symptoms, fever, rectal bleeding or other concerns. The patient voiced understanding of all discharge instructions, and was happy with plan of care. Medical Decision Patient presents to the emergency department with nausea, vomiting and abdominal pain. Patient has frequent visits for similar symptoms. The patient does not appear to be in DKA today. Her electrolytes are otherwise grossly normal. Urinalysis is not suggestive of infection. Clinical exam is not suggestive of a surgical abdomen or pyelonephritis. I do not feel that further imaging studies are warranted. [place] Drug Monitoring Program Search Results: patient reviewed within database, see additional documentation Medication Reconcilliation Current Medication List: was personally reviewed by me Blood Pressure Screening Patient's blood pressure: Normal blood pressure Impression Primary Impression: Nausea, vomiting, and diarrhea Additional Impression: Dehydration Departure Information Referrals Aram Elise M.D. (PCP) Patient Instructions My [facility] Problem Qualifiers
== END 2017-11-25 11:39 | disposition home or self-care (01) ==
LOC: C.EDB 08:02
DX: R11.2 Nausea with vomiting, unspecified (principal); R19.7 Diarrhea, unspecified; E86.0 Dehydration; E11.9 Type 2 diabetes mellitus without complications; K86.1 Other chronic pancreatitis; F17.210 Nicotine dependence, cigarettes, uncomplicated; Z79.4 Long term (current) use of insulin; Z79.899 Other long term (current) drug therapy

== ENCOUNTER 2020-12-31 08:57 | Inpatient (IN) ==
[2020-12-31] MEDS ORDERED: ACETAMINOPHEN 325 MG TAB PO STA (09:15)
[2020-12-31] MEDS ORDERED: diphenhydrAMINE 50 MG/ML VIAL IV STA ×2 (09:35→10:47)
[2020-12-31] MEDS ORDERED: SODIUM CHLORIDE 0.9% 1000ML 2,000 ML IV ONE (09:35)
[2020-12-31] MEDS ORDERED: PROMETHAZINE 12.5 MG/50.5 ML BAG IV STA (09:35)
[2020-12-31] MEDS ORDERED: ONDANSETRON INJ 2 MG/ML 2 ML VIAL IV STA ×2 (09:35→10:47)
[2020-12-31] MEDS ORDERED: NovoLIN-R INSULIN PER UNIT CHARGE IV STA (09:46)
--- NOTE | 2020-12-31 09:46 | Emergency Department Note ---
Impression & Plan Vomiting, Acute dehydration, Acute hyperglycemia, Acute hyponatremia ED Provider Note NAME: KATLIN ADHIKARI AGE: 40 SEX: F : 1980 ARRIVES VIA: Ambulance INFORMANT: [Patient][ems, nursing] ED PROVIDER(S): [Miller Melchor MD] CHIEF COMPLAINT: Vomiting HISTORY OF PRESENT ILLNESS: The patient is a 40-year-old female with a complicated medical history. She has gastroparesis, diabetes and she is on chronic pain management. The patient states that for 3 days, she has had vomiting and some abdominal cramping. She can keep nothing down. Her throat is sore from all the vomiting. There has been no fever. She has a chronic cough but nothing new with the cough. She has not had diarrhea or urinary complaints. She states that this feels like a flare of her gastroparesis or possibly her chronic pancreatitis. The patient has been vaccinated for COVID-19. She has had no Covid exposures. She feels dehydrated. Of note, as per nursing, blood sugar was around 400 upon arrival at the ED. REVIEW OF SYSTEMS: See HPI for pertinent positives and negatives. A total of ten systems were reviewed and were otherwise negative. PMHx/PSHx: See Below SOCIAL HISTORY: See Below. PHYSICAL EXAM: GENERAL: Patient is in no acute distress. HEENT: No acute trauma, normocephalic atraumatic, mucous membranes dry, no nasal congestion, no scleral icterus. NECK: No stridor, no adenopathy, no meningismus, trachea is midline. LUNGS: Clear to auscultation bilaterally, no wheeze, no rhonchi, breath sounds equal. HEART: Mildly tachycardic, regular rhythm, no murmurs. ABDOMEN: Soft, mildly diffusely tender, bowel sounds positive, no hernias, no peritonitis. EXTREMITIES: No cyanosis or edema, full range of motion of all the joints without pain or difficulty, no signs for acute trauma. NEUROLOGIC: Oriented x 3, no acute motor or sensory deficits, no focal weakness. SKIN: No rash, no jaundice, no diaphoresis. DIFFERENTIAL DIAGNOSIS: Appendicitis, ovarian cyst, ovarian torsion, ectopic , TOA, PID, infections, diverticulitis, UTI, obstruction, mesenteric ischemia, aortic pathology, gastroparesis flare, dehydration, inflammatory bowel disease, renal colic, PUD, pancreatitis, biliary pathology, hernia, volvulus, constipation, as well as other pathologies. EMERGENCY DEPARTMENT COURSE/PROCEDURES: ECG: Indication was tachycardia and vomiting. The ECG shows a sinus tachycardia with a rate of 105. There is some subtle nonspecific ST change especially in the inferior and lateral leads. There is no ST elevation, no PVCs. The QTc is 478. Continuous Cardiac Monitoring: An order was placed for continuous cardiac monitoring. The monitor shows a rate of 121 with sinus tachycardia. MEDICAL DECISION MAKING: There is no leukocytosis. The hemoglobin is actually high, consistent with dehydration. There is a normal platelet count. Sodium was low at 120. Glucose was high at around 400. There was some diffuse liver enzyme elevation. ECG shows a sinus tachycardia, no acute ischemia. Cardiac enzyme testing x1 is not consistent with acute cardiac injury. No evidence for pancreatitis by our testing. testing returned negative. Urinalysis shows what appears to be contamination. Covid test was negative. Abdominal series did not show pneumonia or bowel obstruction. The patient received IV saline, 2 L. She received IV Phenergan, IV Zofran and IV Benadryl. She was still vomiting. She was given IV Compazine, IV Benadryl and IV Zofran. She received 8 units of IV insulin for the high blood sugar. The patient is feeling somewhat improved. She is quite dry, she has required multiple medications to control her nausea and her at home meds were not working. She has several electrolyte abnormalities. I do think she is going to require a hospital stay for further care. I spoke to the patient and case management. The on-call hospitalist was consulted. Past Med/Surg History Medical History Abnormal thyroid function test Abscess of groin, left Acute abdominal pain Acute abdominal pain Alcohol use Cellulitis (11/07/13) Dehydration Drug use Dyslipidemia Hx of obesity Left lower quadrant pain Nausea, vomiting and diarrhea Nausea, vomiting, and diarrhea Pancreatitis Pancreatitis PCOS (polycystic ovarian syndrome) RUQ abdominal pain Type 2 diabetes mellitus with hyperglycemia Type 2 diabetes mellitus with hyperglycemia Uncontrolled diabetes mellitus Vitamin A deficiency Vitamin D deficiency Surgical History H/O laparoscopy Hx of hand surgery S/P cholecystectomy S/P LEEP of cervix S/P tonsillectomy Family History Mother Diabetes Hypertension Breast cancer Brother Asthma Father Asthma Dyslipidemia Hypertension Heart disease Grandmother (Paternal) Stroke Denies family history of Ovarian cancer Colorectal cancer Uterine cancer Social History Smoking Status: Current every day smoker Tobacco Type: Cigarettes Cigarettes Per Day: 1 ppd; Hx Alcohol Use: Yes Hx Substance Use: No Feels Safe at Home: Yes Allergies Allergies Allergy/AdvReac Type Severity Reaction Status Date / Time Penicillins Allergy Severe ANAPHYLAXIS Verified 12/31/20 09:35 clindamycin Allergy Intermediate RASH Verified 12/31/20 09:35 metoclopramide [From Reglan] Allergy Drowsy Verified 12/31/20 09:35 Home Meds Home Medications Medication Instructions Recorded Confirmed baclofen 10 mg PO QID PRN 03/19/19 12/31/20 buprenorphine 1 patch TRANSDERMAL Q7D 03/19/19 12/31/20 hydroxyzine HCl 20 mg PO TID PRN 03/19/19 12/31/20 mirtazapine 15 mg PO HS 03/19/19 12/31/20 oxycodone 5 mg PO Q8 PRN MDD NO MORE THAN 15 03/19/19 12/31/20 ML/DAY. sertraline 75 mg PO QPM 03/19/19 12/31/20 dronabinol 10 mg capsule 10 mg PO DIRECTED PRN 06/27/19 12/31/20 ondansetron HCl 8 mg tablet 8 mg PO DIRECTED PRN 06/27/19 12/31/20 melatonin 10 mg capsule 10 mg PO HS PRN 05/03/20 12/31/20 fluconazole [Diflucan] 150 mg PO Q3D PRN 12/31/20 12/31/20 Previous Rx's Medication Instructions Recorded insulin aspart U-100 100 unit/mL See Rx Instructions SQ .COMPLEX 30 05/03/20 (3 mL) subcutaneous pen Days #15 ml pen needle, diabetic 32 gauge x #200 ea 07/12/20" Lantus Solostar U-100 Insulin 100 60 unit SQ HS 30 Days #30 ml NS 09/25/20 unit/mL (3 mL) subcutaneous pen Results & Data (ED) Vital Signs Vital Signs - 24 hr 12/31/20 09:16 12/31/20 09:17 12/31/20 09:30 Temperature 36.7 C 36.7 C Temperature Source Oral Oral Pulse Rate 121 H 103 H Pulse Rate [Left Finger] 121 H Pulse Rate from SpO2 Sensor 104 H Pulse Rhythm Regular Pulse Rhythm [Left Finger] Regular Pulse Strength Normal Pulse Strength [Left Finger] Normal Respiratory Rate 18 18 18 Respiratory Effort / Characteristics Non-Labored Spontaneous Non-Labored Spontaneous Respiratory Depth Normal Normal Respiratory Pattern Regular Blood Pressure 171/134 H 161/112 H Blood Pressure [Left Arm] 171/134 H Blood Pressure Mean 146 128 Blood Pressure Mean [Left Arm] 146 Blood Pressure Position Sitting Blood Pressure Position [Left Arm] Sitting Pulse Oximetry 97 95 97 Oxygen Delivery Method Room Air Room Air Room Air Sepsis Recent Fever Within 48 Hours No Sepsis New/Unexplained Change in Mental Status N/A Sepsis Action Taken by Nursing No Action Required 12/31/20 10:01 12/31/20 10:30 12/31/20 11:55 Temperature Temperature Source Pulse Rate 112 H 96 H 118 H Pulse Rate [Left Finger] Pulse Rate from SpO2 Sensor 114 H 96 H 119 H Pulse Rhythm Pulse Rhythm [Left Finger] Pulse Strength Pulse Strength [Left Finger] Respiratory Rate 22 18 14 Respiratory Effort / Characteristics Respiratory Depth Respiratory Pattern Blood Pressure 171/91 H 160/95 H 143/90 H Blood Pressure [Left Arm] Blood Pressure Mean 117 116 107 Blood Pressure Mean [Left Arm] Blood Pressure Position Blood Pressure Position [Left Arm] Pulse Oximetry 99 100 100 Oxygen Delivery Method Room Air Room Air Room Air Sepsis Recent Fever Within 48 Hours Sepsis New/Unexplained Change in Mental Status Sepsis Action Taken by Nursing 12/31/20 12:00 Temperature Temperature Source Pulse Rate 112 H Pulse Rate [Left Finger] Pulse Rate from SpO2 Sensor 112 H Pulse Rhythm Pulse Rhythm [Left Finger] Pulse Strength Pulse Strength [Left Finger] Respiratory Rate 17 Respiratory Effort / Characteristics Respiratory Depth Respiratory Pattern Blood Pressure 132/96 Blood Pressure [Left Arm] Blood Pressure Mean 108 Blood Pressure Mean [Left Arm] Blood Pressure Position Blood Pressure Position [Left Arm] Pulse Oximetry 100 Oxygen Delivery Method Sepsis Recent Fever Within 48 Hours Sepsis New/Unexplained Change in Mental Status Sepsis Action Taken by [facility] Medications Current Medication List: was personally reviewed by me Laboratory Data Attestation: I reviewed the patient's lab results. Result diagrams: 12/31/20 09:13 12/31/20 09:13 Lab Results 12/31/20 12/31/20 12/31/20 Range/Units 09:04 09:06 09:13 WBC (4.8-10.8) K/uL RBC (4.2-5.4) M/uL Hgb (12.0-16.0) g/dL Hct (37-47) % MCV (80-100) fL MCH (25-34) pg MCHC (32-36) g/dL RDW Std Deviation (36.4-46.3) fL RDW Coeff of Eliezer (11.5-14.5) % Plt Count (130-400) K/uL MPV (7.4-10.4) fL Immature Gran % (Auto) % Neut % (Auto) % Lymph % (Auto) % [place] % (Auto) % Eos % (Auto) % Baso % (Auto) % Neut # (Auto) (1.4-6.5) K/uL Lymph # (Auto) (1.2-3.4) K/uL [place] # (Auto) (0.11-0.59) K/uL Eos # (Auto) (0-0.5) K/uL Baso # (Auto) (0-0.2) K/uL Immature Gran # (Auto) (0.00-0.02) K/uL Sodium 120 L (136-145) mmol/L Potassium 3.7 (3.5-5.1) mmol/L Chloride 82 L (98-107) mmol/L Carbon Dioxide 11 L (21-32) mmol/L Anion Gap 27.0 H (3-11) BUN 24 H (7-18) mg/dl Creatinine 1.19 (0.6-1.2) mg/dl Est Cr Clr Drug Dosing 50.2 ml/min Est GFR ( Amer) 66.6 ml/min Est GFR (Non-Af Amer) 57.5 ml/min BUN/Creatinine Ratio 20.0 (10-20) Glucose 397 H* (70-99) mg/dl POC Glucose 416 H* 409 H* (70-99) mg/dl Calcium 9.3 (8.5-10.1) mg/dl Total Bilirubin 1.1 H (0.2-1) mg/dl AST 102 H (15-37) U/L ALT 126 H (12-78) U/L Alkaline Phosphatase 551 H (45-117) U/L Troponin I < 0.015 (0-0.045) ng/ml Total Protein 10.1 H (6.4-8.2) gm/dl Albumin 4.8 (3.4-5.0) gm/dl Globulin 5.3 H (2.5-4.0) gm/dl Albumin/Globulin Ratio 0.9 (0.9-2) Lipase 53 L (73-393) U/L Beta-Hydroxybutyric Acd (0.2-2.81) mg/dl HCG, Qual (Negative) Urine Color Urine Appearance (Clear) Urine pH (4.5-7.5) Ur Specific Sun (1.000-1.030) Urine Protein (Negative) Urine Glucose (UA) (Negative) Urine Ketones (Negative) Urine Blood (Negative) Urine Nitrite (Negative) Urine Bilirubin (Negative) Urine Urobilinogen (Negative) Ur Leukocyte Esterase (Negative) Urine WBC (Auto) (0-5) /hpf Urine RBC (Auto) (0-4) /hpf U Hyaline Cast (Auto) (0-5) /lpf U Epithel Cells (Auto) (0-5) /lpf Urine Bacteria (Auto) (Negative) COVID-19 Eval Order SARS-CoV-2 (PCR) (Negative) 12/31/20 12/31/20 12/31/20 Range/Units 09:13 09:13 11:39 WBC 9.41 (4.8-10.8) K/uL RBC 5.54 H (4.2-5.4) M/uL Hgb 18.3 H (12.0-16.0) g/dL Hct 50.2 H (37-47) % MCV 90.6 (80-100) fL MCH 33.0 (25-34) pg MCHC 36.5 H (32-36) g/dL RDW Std Deviation 41.6 (36.4-46.3) fL RDW Coeff of Eliezer 12.4 (11.5-14.5) % Plt Count 299 (130-400) K/uL MPV 10.0 (7.4-10.4) fL Immature Gran % (Auto) 0.3 % Neut % (Auto) 72.2 % Lymph % (Auto) 20.8 % [place] % (Auto) 6.5 % Eos % (Auto) 0.0 % Baso % (Auto) 0.2 % Neut # (Auto) 6.79 H (1.4-6.5) K/uL Lymph # (Auto) 1.96 (1.2-3.4) K/uL [place] # (Auto) 0.61 H (0.11-0.59) K/uL Eos # (Auto) 0.00 (0-0.5) K/uL Baso # (Auto) 0.02 (0-0.2) K/uL Immature Gran # (Auto) 0.03 H (0.00-0.02) K/uL Sodium (136-145) mmol/L Potassium (3.5-5.1) mmol/L Chloride (98-107) mmol/L Carbon Dioxide (21-32) mmol/L Anion Gap (3-11) BUN (7-18) mg/dl Creatinine (0.6-1.2) mg/dl Est Cr Clr Drug Dosing ml/min Est GFR ( Amer) ml/min Est GFR (Non-Af Amer) ml/min BUN/Creatinine Ratio (10-20) Glucose (70-99) mg/dl POC Glucose (70-99) mg/dl Calcium (8.5-10.1) mg/dl Total Bilirubin (0.2-1) mg/dl AST (15-37) U/L ALT (12-78) U/L Alkaline Phosphatase (45-117) U/L Troponin I (0-0.045) ng/ml Total Protein (6.4-8.2) gm/dl Albumin (3.4-5.0) gm/dl Globulin (2.5-4.0) gm/dl Albumin/Globulin Ratio (0.9-2) Lipase (73-393) U/L Beta-Hydroxybutyric Acd (0.2-2.81) mg/dl HCG, Qual Negative (Negative) Urine Color Yellow Urine Appearance Cloudy A (Clear) Urine pH 5.0 (4.5-7.5) Ur Specific Sun 1.025 (1.000-1.030) Urine Protein 2+ H (Negative) Urine Glucose (UA) 3+ H (Negative) Urine Ketones 4+ H (Negative) Urine Blood 1+ H (Negative) Urine Nitrite Negative (Negative) Urine Bilirubin Negative (Negative) Urine Urobilinogen Negative (Negative) Ur Leukocyte Esterase Negative (Negative) Urine WBC (Auto) 10-30 H (0-5) /hpf Urine RBC (Auto) 0-4 (0-4) /hpf U Hyaline Cast (Auto) 5-10 H (0-5) /lpf U Epithel Cells (Auto) >30 H (0-5) /lpf Urine Bacteria (Auto) 1+ H (Negative) COVID-19 Eval Order SARS-CoV-2 (PCR) (Negative) 12/31/20 12/31/20 Range/Units 11:56 11:56 WBC (4.8-10.8) K/uL RBC (4.2-5.4) M/uL Hgb (12.0-16.0) g/dL Hct (37-47) % MCV (80-100) fL MCH (25-34) pg MCHC (32-36) g/dL RDW Std Deviation (36.4-46.3) fL RDW Coeff of Eliezer (11.5-14.5) % Plt Count (130-400) K/uL MPV (7.4-10.4) fL Immature Gran % (Auto) % Neut % (Auto) % Lymph % (Auto) % [place] % (Auto) % Eos % (Auto) % Baso % (Auto) % Neut # (Auto) (1.4-6.5) K/uL Lymph # (Auto) (1.2-3.4) K/uL [place] # (Auto) (0.11-0.59) K/uL Eos # (Auto) (0-0.5) K/uL Baso # (Auto) (0-0.2) K/uL Immature Gran # (Auto) (0.00-0.02) K/uL Sodium (136-145) mmol/L Potassium (3.5-5.1) mmol/L Chloride (98-107) mmol/L Carbon Dioxide (21-32) mmol/L Anion Gap (3-11) BUN (7-18) mg/dl Creatinine (0.6-1.2) mg/dl Est Cr Clr Drug Dosing ml/min Est GFR ( Amer) ml/min Est GFR (Non-Af Amer) ml/min BUN/Creatinine Ratio (10-20) Glucose (70-99) mg/dl POC Glucose (70-99) mg/dl Calcium (8.5-10.1) mg/dl Total Bilirubin (0.2-1) mg/dl AST (15-37) U/L ALT (12-78) U/L Alkaline Phosphatase (45-117) U/L Troponin I (0-0.045) ng/ml Total Protein (6.4-8.2) gm/dl Albumin (3.4-5.0) gm/dl Globulin (2.5-4.0) gm/dl Albumin/Globulin Ratio (0.9-2) Lipase (73-393) U/L Beta-Hydroxybutyric Acd (0.2-2.81) mg/dl HCG, Qual (Negative) Urine Color Urine Appearance (Clear) Urine pH (4.5-7.5) Ur Specific Sun (1.000-1.030) Urine Protein (Negative) Urine Glucose (UA) (Negative) Urine Ketones (Negative) Urine Blood (Negative) Urine Nitrite (Negative) Urine Bilirubin (Negative) Urine Urobilinogen (Negative) Ur Leukocyte Esterase (Negative) Urine WBC (Auto) (0-5) /hpf Urine RBC (Auto) (0-4) /hpf U Hyaline Cast (Auto) (0-5) /lpf U Epithel Cells (Auto) (0-5) /lpf Urine Bacteria (Auto) (Negative) COVID-19 Eval Order Covid19 at [facility] SARS-CoV-2 (PCR) NEGATIVE (Negative) Administered Medications Sodium Chloride (Nss 1000ml) 1,000 mls @ 125 mls/hr IV .Q8H ELISEO Stop: 01/30/21 14:18 Last Admin: 12/31/20 15:53 Dose: 125 mls/hr Documented by: [id number] Miscellaneous (Order Awaiting Action) 1 ea N/A QS ELISEO Stop: 01/30/21 15:59 Last Admin: 12/31/20 17:00 Dose: Not Given Documented by: [id number] Ondansetron HCl (Ondansetron Inj 2 Mg/Ml 2 Ml Vial) 4 mg IV Q6H PRN PRN Reason: Nausea Stop: 01/30/21 14:18 Last Admin: 12/31/20 15:53 Dose: 4 mg Documented by: [id number] Oxycodone HCl (Oxycodone Hcl Soln 5 Mg/5 Ml Udc) 5 mg PO Q8 PRN PRN Reason: Pain Stop: 01/14/21 14:18 Last Admin: 12/31/20 16:00 Dose: 5 mg Documented by: [id number] Discontinued Medications Acetaminophen (Acetaminophen 325 Mg Tab) 650 mg PO NOW STA Stop: 12/31/20 09:16 Last Admin: 12/31/20 10:46 Dose: Not Given Documented by: [id number] Diphenhydramine HCl (Diphenhydramine 50 Mg/Ml Vial) 12.5 mg IV NOW STA Stop: 12/31/20 09:36 Last Admin: 12/31/20 09:46 Dose: 12.5 mg Documented by: [id number] Diphenhydramine HCl (Diphenhydramine 50 Mg/Ml Vial) 12.5 mg IV NOW STA Stop: 12/31/20 10:48 Last Admin: 12/31/20 10:57 Dose: 12.5 mg Documented by: [id number] Sodium Chloride (Nss 1000ml) 2,000 mls @ 999 mls/hr IV .Q2H1M ONE Stop: 12/31/20 11:35 Last Infusion: 12/31/20 10:45 Dose: 0 mls/hr Documented by: [id number] Admin: 12/31/20 09:40 Dose: 999 mls/hr Documented by: [id number] Promethazine HCl (Phenergan) 12.5 mg in 50.5 mls @ 202 mls/hr IV NOW STA Stop: 12/31/20 09:49 Last Infusion: 12/31/20 10:00 Dose: 0 mls/hr Documented by: [id number] Admin: 12/31/20 09:47 Dose: 202 mls/hr Documented by: [id number] Prochlorperazine 10 mg/ (Syringe) 10 mls @ 5 mls/min IV ONE ONE Stop: 12/31/20 10:48 Last Admin: 12/31/20 11:31 Dose: Not Given Documented by: [id number] Insulin Human Regular (Novolin-R Insulin Per Unit Charge) 8 units IV NOW STA Stop: 12/31/20 09:47 Last Admin: 12/31/20 10:46 Dose: 8 units Documented by: [id number] Cosigned by: [id number] Ondansetron HCl (Ondansetron Inj 2 Mg/Ml 2 Ml Vial) 4 mg IV NOW STA Stop: 12/31/20 09:36 Last Admin: 12/31/20 09:46 Dose: 4 mg Documented by: [id number] Ondansetron HCl (Ondansetron Inj 2 Mg/Ml 2 Ml Vial) 4 mg IV NOW STA Stop: 12/31/20 10:48 Last Admin: 12/31/20 10:57 Dose: 4 mg Documented by: [id number] Prochlorperazine (Prochlorperazine 5 Mg/Ml 2 Ml Vial) Confirm Administered Dose 10 mg .ROUTE .STK-MED ONE Stop: 12/31/20 10:56 Last Admin: 12/31/20 10:56 Dose: 10 mg Documented by: [id number] Imaging Data Radiologist's Impression: Chest/Abdomen X-ray 12/31/20 09:35 XR abdomen 2V w PA chest CLINICAL HISTORY: nv COMPARISON STUDY: March 21, 2019 FINDINGS: The erect chest reveals no evidence of free air. There is no evidence of focal pulmonary consolidation.] Erect and supine views of the abdomen reveal no abnormally dilated loops of large or small bowel. There are no transition zone to indicate bowel obstruction. Cholecystectomy clips are seen within the right upper quadrant. IMPRESSION: No evidence of bowel obstruction. No evidence of free air. ACT 112: Negative or not required by law. The above report was generated using voice recognition software. It may contain grammatical, syntax or spelling errors. Electronically signed by: Yvonne Nelson DO 12/31/2020 11:29 AM Discharge Plan Visit Data Chief Complaint: Vomiting Stated Complaint: VOMITING, COUGH, SORE THROAT ED Provider: Miller Melchor Discharge Problem: Vomiting, Acute dehydration, Acute hyperglycemia, Acute hyponatremia Patient Disposition: Admitted As Inpatient Condition: Fair Discharge Instructions Interventions: ED Discharge Assessment Last Done: 12/31/20 14:04 Discharge Problem: Vomiting Qualifiers: Vomiting type: unspecified Vomiting Intractability: non-intractable Nausea presence: with nausea Qualified Code(s): R11.2 - Nausea with vomiting, unspec ified
[2020-12-31 09:48] LABS: Pregnancy Test, Serum Negative (Negative)
[2020-12-31 09:50] LABS: Basophils # (auto) 0.02 K/uL (0-0.2); Basophils % (auto) 0.2 %; Hematocrit (blood only) 50.2 % (37-47); Hemoglobin 18.3 g/dL (12.0-16.0); Immature Granulocytes # (auto) 0.03 K/uL (0.00-0.02); Immature Granulocytes % (auto) 0.3 %; Lymphocytes # (auto) 1.96 K/uL (1.2-3.4); Lymphocytes % (auto) 20.8 %; Mean Corpuscular Hgb Conc 36.5 g/dL (32-36); Mean Corpuscular Volume 90.6 fL (80-100); Monocytes # (auto) 0.61 K/uL (0.11-0.59); Monocytes % (auto) 6.5 %; Neutrophils # (auto) 6.79 K/uL (1.4-6.5); Neutrophils % (auto) 72.2 %; Platelet Count 299 K/uL (130-400); RDW Coefficient of Variation 12.4 % (11.5-14.5); RDW Standard Deviation 41.6 fL (36.4-46.3); Red Blood Count 5.54 M/uL (4.2-5.4); White Blood Count 9.41 K/uL (4.8-10.8)
[2020-12-31 10:02] LABS: Alanine Aminotransferase 126 U/L (12-78); Albumin Level 4.8 gm/dl (3.4-5.0); Aspartate Aminotransferase 102 U/L (15-37); Blood Urea Nitrogen 24 mg/dl (7-18); Calcium 9.3 mg/dl (8.5-10.1); Carbon Dioxide 11 mmol/L (21-32); Chloride 82 mmol/L (98-107); Creatinine Clr Calc Pharmacy 50.2 ml/min; Est GFR (African American) 66.6 ml/min; Est GFR (Non-African American) 57.5 ml/min; Glucose 397 mg/dl (70-99); Lipase 53 U/L (73-393); Potassium 3.7 mmol/L (3.5-5.1); Sodium 120 mmol/L (136-145)
[2020-12-31 10:04] LABS: Albumin Globulin Ratio 0.9 (0.9-2); Alkaline Phosphatase 551 U/L (45-117); Bilirubin,Total 1.1 mg/dl (0.2-1); Globulin 5.3 gm/dl (2.5-4.0); Total Protein 10.1 gm/dl (6.4-8.2); Troponin I < 0.015 ng/ml (0-0.045)
[2020-12-31] MEDS ORDERED: PROCHLORPERAZINE 10 MG in SYRINGE 8 ML IV ONE (10:47)
[2020-12-31] MEDS ORDERED: PROCHLORPERAZINE 5 MG/ML 2 ML VIAL ONE (10:55)
--- NOTE | 2020-12-31 11:30 | XRay Report ---
XR abdomen 2V w PA chest CLINICAL HISTORY: nv COMPARISON STUDY: March 21, 2019 FINDINGS: The erect chest reveals no evidence of free air. There is no evidence of focal pulmonary co nsolidation.] Erect and supine views of the abdomen reveal no abnormally dilated loops of large or sm all bowel. There are no transition zone to indicate bowel obstruction. Cholecystectomy clips are seen within the right upper quadrant. IMPRESSION: No evidence of bowel obstruction. No evidence of free air. ACT 112: Negative or not required by law. The above report was generated using voice recognition software. It may contain grammatical, syntax o r spelling errors. Electronically signed by: Yvonne Nelson DO 12/31/2020 11:29 AM
[2020-12-31 12:05] LABS: Appearance Urine Cloudy (Clear); Bacteria Urine Automated 1+ (Negative); Bilirubin Urine Negative (Negative); Blood Urine 1+ (Negative); Color Urine Yellow; Epithelial Cell Urine Auto >30 /lpf (0-5); Glucose Urine UA 3+ (Negative); Ketones Urine 4+ (Negative); Leukocyte Esterase Urine Negative (Negative); Nitrite Urine Negative (Negative); Protein Urine 2+ (Negative); RBC Urine Automated 0-4 /hpf (0-4); Specific Gravity Urine 1.025 (1.000-1.030); Urobilinogen Urine Negative (Negative)
--- NOTE | 2020-12-31 12:12 | History & Physical Report ---
Date of Service December 31, 2020 Assessment & Plan (1) Intractable nausea and vomiting: Consistent with patient's previously stated history of gastroparesis Admit to a monitored bed Hydrate with IV normal saline Start with clear liquid diet, consider advancement in the next 24 hours if patient continues to do well Will order IV Compazine and Zofran for nausea We will hold off on imaging as patient has further abdominal pain or worsening clinical course (2) Hyponatremia: Hypovolemic on exam Hydration with normal saline as noted above Continue to monitor lab work, replete potassium as needed (3) Type 2 diabetes mellitus with hyperglycemia: Patient typically takes Lantus 60 units nightly along with sliding scale for meals, will continue Will eventually advance to a diabetic diet Recheck globin A1c (4) Dyslipidemia: Patient does not appear to be on therapy for this per her outpatient medications We will check a fasting lipid panel History of Present Illness Chief Complaint: Intractable nausea vomiting Primary Care Provider: Aram Elise MD This is a 40-year-old female past medical history of uncontrolled type 2 diabetes mellitus, previously diagnosed gastroparesis, hyperlipidemia that presents today complaining 3 days intractable nausea vomiting. Patient is pleasant good historian. Patient tells me she gets events like this frequently, attributes this to gastroparesis. She does well at home, typically she will just try to stay hydrated and stick to a clear liquid diet with medications is resolved. However, over the past 3 days she has had this much worse. She has not been able to tolerate any liquids or food. She has had crampy abdominal pain but nothing sharp or focal her abdomen. She felt that she was getting more dehydrated presents to the emergency room for further evaluation. She was found to be in significant hyperglycemia without evidence of DKA. In addition, she had a sodium of 120, which corrects for hyperglycemia to 125. At the time my evaluation, patient tells me she is feeling little bit better, attributes this to being rehydrated. She is tolerating ice chips and feels she can have some clear liquids. Denies any further abdominal pain. Plan is to admit to a general medical bed, continue hydration with normal saline and advance diet as tolerated. Allergies Allergy/AdvReac Type Severity Reaction Status Date / Time Penicillins Allergy Severe ANAPHYLAXIS Verified 12/31/20 09:35 clindamycin Allergy Intermediate RASH Verified 12/31/20 09:35 metoclopramide [From Reglan] Allergy Drowsy Verified 12/31/20 09:35 Home Medications Medication Instructions Recorded Confirmed Type baclofen 10 mg PO QID PRN 03/19/19 12/31/20 History buprenorphine 1 patch TRANSDERMAL Q7D 03/19/19 12/31/20 History hydroxyzine HCl 20 mg PO TID PRN 03/19/19 12/31/20 History mirtazapine 15 mg PO HS 03/19/19 12/31/20 History oxycodone 5 mg PO Q8 PRN MDD NO MORE THAN 15 03/19/19 12/31/20 History ML/DAY. sertraline 75 mg PO QPM 03/19/19 12/31/20 History dronabinol 10 mg capsule 10 mg PO DIRECTED PRN 06/27/19 12/31/20 History ondansetron HCl 8 mg tablet 8 mg PO DIRECTED PRN 06/27/19 12/31/20 History insulin aspart U-100 100 unit/mL See Rx Instructions SQ .COMPLEX 30 05/03/20 12/31/20 Rx (3 mL) subcutaneous pen Days #15 ml melatonin 10 mg capsule 10 mg PO HS PRN 05/03/20 12/31/20 History pen needle, diabetic 32 gauge x #200 ea 07/12/20 07/12/20 Rx /32" Lantus Solostar U-100 Insulin 100 60 unit SQ HS 30 Days #30 ml NS 09/25/20 12/31/20 Rx unit/mL (3 mL) subcutaneous pen fluconazole [Diflucan] 150 mg PO Q3D PRN 12/31/20 12/31/20 History Past Med/Surg History Medical History Abnormal thyroid function test Abscess of groin, left Acute abdominal pain Acute abdominal pain Alcohol use Cellulitis (11/07/13) Dehydration Drug use Dyslipidemia Hx of obesity Left lower quadrant pain Nausea, vomiting and diarrhea Nausea, vomiting, and diarrhea Pancreatitis Pancreatitis PCOS (polycystic ovarian syndrome) RUQ abdominal pain Type 2 diabetes mellitus with hyperglycemia Type 2 diabetes mellitus with hyperglycemia Uncontrolled diabetes mellitus Vitamin A deficiency Vitamin D deficiency Surgical History H/O laparoscopy Hx of hand surgery S/P cholecystectomy S/P LEEP of cervix S/P tonsillectomy Family History Mother Diabetes Hypertension Breast cancer Brother Asthma Father Asthma Dyslipidemia Hypertension Heart disease Grandmother (Paternal) Stroke Denies family history of Ovarian cancer Colorectal cancer Uterine cancer Social History Smoking Status: Current every day smoker Tobacco Type: Cigarettes Cigarettes Per Day: 1 ppd; Hx Alcohol Use: Yes Hx Substance Use: No Feels Safe at Home: Yes Review of Systems Constitutional: + weakness; no fever, no chills, no weight loss and no weight gain Eyes: as per Subjective / HPI Respiratory: no cough, no chest congestion, no dyspnea and no dyspnea on exertion Cardiovascular: no chest pain, no orthopnea, no palpitations, no lightheadedness and no edema Gastrointestinal: + abdominal pain, + nausea and + vomiting; no coffee ground emesis, no hematemesis, no constipation and no diarrhea/loose stools Genitourinary: no dysuria, no difficulty urinating, no urinary frequency, no urinary hesitancy, no urinary urgency and no flank pain Musculoskeletal: no back pain, no neck pain, no joint pain, no stiffness and no myalgia Integumentary: no rash Neurologic: no gait abnormality, no unsteadiness, no falls and no generalized weakness Physical Exam Constitutional: cooperative; no acute distress hirsute Neck: trachea midline, no thyromegaly Respiratory: normal respiratory effort Auscultation: lungs clear to auscultation bilaterally; no crackles, no rales, no rhonchi and no wheezes Cardiovascular: Rate/Rhythm: regular rate and regular rhythm Heart Sounds: normal S1, normal S2 and + murmur Gastrointestinal (Abdomen): Inspection/Auscultation: abdomen normal to inspection and + hypoactive bowel sounds Percussion/Palpation: abdomen soft; abdomen nontender, no guarding, abdomen not rigid and no hepatosplenomegaly Skin: no rashes, warm and dry Results & Data Results & Data ([facility]) Vital Signs (Past 12 Hours) Vital Signs Temp Pulse Pulse Resp BP BP Pulse Ox 12/31/20 11:55 118 H 14 143/90 H 100 12/31/20 10:30 96 H 18 160/95 H 100 12/31/20 10:01 112 H 22 171/91 H 99 12/31/20 09:30 103 H 18 161/112 H 97 12/31/20 09:17 36.7 C 121 H 18 171/134 H 95 12/31/20 09:16 36.7 C 121 H 18 171/134 H 97 Diagnostic Findings XR abdomen 2V w PA chest CLINICAL HISTORY: nv COMPARISON STUDY: March 21, 2019 FINDINGS: The erect chest reveals no evidence of free air. There is no evidence of focal pulmonary consolidation.] Erect and supine views of the abdomen reveal no abnormally dilated loops of large or small bowel. There are no transition zone to indicate bowel obstruction. Cholecystectomy clips are seen within the right upper quadrant. IMPRESSION: No evidence of bowel obstruction. No evidence of free air. PG Care Time/CCT Total # of Minutes Spent Total Time Spent with Patient: Total time spent is greater than 50% in coordination of care (as documented) at patient's floor/unit and/or counseling patient: Coding Level of Care Code 55200 Initial Inpt Care Lvl 3 Diagnoses Intractable nausea and vomiting R11.2 Hyponatremia E87.1 Type 2 diabetes mellitus with hyperglycemia E11.65; Z79.4 Diabetes mellitus longterm insulin use: with ocean transportation intermediary use Dyslipidemia E78.5 (1) Type 2 diabetes mellitus with hyperglycemia Diabetes mellitus ocean transportation intermediary insulin use: with longterm use Qualified Code(s): E11.65 - Type 2 diabetes mellitus with hyperglycemia; 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
[2020-12-31] MEDS ORDERED: hydrOXYzine HCl 10 MG TAB PO PRN (14:19)
[2020-12-31] MEDS ORDERED: GLUCAGON FOR INJ 1 MG VIAL SQ PRN (14:19)
[2020-12-31] MEDS ORDERED: GLUCOSE 40% GEL 15 GM TUBE PO PRN (14:19)
[2020-12-31] MEDS ORDERED: DEXTROSE 50% 50 ML SYRINGE IV PRN (14:19)
[2020-12-31] MEDS ORDERED: CARBOHYDRATES FOR HYPOGLYCEMIA PO PRN (14:19)
[2020-12-31] MEDS ORDERED: oxyCODONE HCL SOLN 5 MG/5 ML UDC PO PRN (14:19)
[2020-12-31] MEDS ORDERED: BACLOFEN 10 MG TAB PO PRN (14:19)
[2020-12-31] MEDS ORDERED: GLUCOSE 10 TABS/TUBE PO PRN (14:19)
[2020-12-31] MEDS ORDERED: ACETAMINOPHEN 325 MG TAB PO PRN (14:19)
[2020-12-31] MEDS ORDERED: MELATONIN 3 MG TAB PO PRN (14:29)
--- NOTE | 2020-12-31 14:59 | Electrocardiogram Report ---
Test Reason : Blood Pressure : / mmHG Vent. Rate : 105 BPM Atrial Rate : 105 BPM P-R Int : 142 ms QRS Dur : 084 ms QT Int : 362 ms P-R-T Axes : 082 046 071 degrees QTc Int : 478 ms Sinus tachycardia Right atrial enlargement Borderline ECG When compared with ECG of 11-DEC-2019 19:33, No significant change was found Confirmed by Myles Mathis ([id number]) on 12/31/2020 2:59:12 PM Referred By: SELF Confirmed By:Myles Mathis
[2020-12-31] MEDS: ONDANSETRON INJ 2 MG/ML 2 ML VIAL IV PRN (15:53)
[2020-12-31] MEDS: SODIUM CHLORIDE 0.9% 1000ML 1,000 ML IV SCH ×2 (15:53→22:55)
[2020-12-31] MEDS ORDERED: ALUMINUM/MAGNESIUM SUSP 30 ML UDC PO PRN (17:10)
[2020-12-31] MEDS: INSULIN ASPART 100 UNITS/ML 3 ML PEN SQ SCH ×2 (17:21→20:44)
[2020-12-31] MEDS ORDERED: FAMOTIDINE 20 MG TAB PO ONE (17:41)
[2020-12-31] MEDS: PROCHLORPERAZINE 5 MG in SYRINGE 4 ML IV PRN (20:41)
[2020-12-31] MEDS ORDERED: INSULIN GLARGINE SOLOSTAR 100 UNITS/ML 3 ML PEN SQ SCH (21:00)
[2020-12-31] MEDS ORDERED: SERTRALINE HCL 50 MG TABLET PO SCH (21:00)
[2020-12-31] MEDS ORDERED: MIRTAZAPINE TAB 15 MG TAB PO SCH (21:00)
[2021-01-01] MEDS ORDERED: FAMOTIDINE 10 MG TABLET PO ONE (01:12)
[2021-01-01] MEDS: ONDANSETRON INJ 2 MG/ML 2 ML VIAL IV PRN ×2 (04:20→16:35)
[2021-01-01] MEDS: SODIUM CHLORIDE 0.9% 1000ML 1,000 ML IV SCH (06:15)
[2021-01-01 06:33] LABS: Estimated Average Glucose 280 mg/dl; Hemoglobin A1C 11.4 % (4.5-5.6)
[2021-01-01 06:41] LABS: Eosinophils # (auto) 0.01 K/uL (0-0.5); Eosinophils % (auto) 0.1 %; Hematocrit (blood only) 38.9 % (37-47); Hemoglobin 14.4 g/dL (12.0-16.0); Immature Granulocytes # (auto) 0.02 K/uL (0.00-0.02); Immature Granulocytes % (auto) 0.2 %; Lymphocytes # (auto) 1.53 K/uL (1.2-3.4); Lymphocytes % (auto) 18.7 %; Mean Corpuscular Hemoglobin 32.4 pg (25-34); Mean Corpuscular Volume 87.6 fL (80-100); Mean Platelet Volume 8.9 fL (7.4-10.4); Monocytes # (auto) 0.77 K/uL (0.11-0.59); Monocytes % (auto) 9.4 %; Neutrophils # (auto) 5.87 K/uL (1.4-6.5); Neutrophils % (auto) 71.6 %; Platelet Count 196 K/uL (130-400); RDW Coefficient of Variation 12.4 % (11.5-14.5); RDW Standard Deviation 39.9 fL (36.4-46.3); Red Blood Count 4.44 M/uL (4.2-5.4)
[2021-01-01 07:06] LABS: Albumin Globulin Ratio 0.9 (0.9-2); Albumin Level 3.4 gm/dl (3.4-5.0); BUN Creatinine Ratio 11.1 (10-20); Bilirubin,Total 0.8 mg/dl (0.2-1); Calcium 8.5 mg/dl (8.5-10.1); Creatinine Clr Calc Pharmacy 85.3 ml/min; Est GFR (African American) 126.5 ml/min; Est GFR (Non-African American) 109.1 ml/min; Globulin 3.6 gm/dl (2.5-4.0); Magnesium 2.3 mg/dl (1.8-2.4); Potassium 2.9 mmol/L (3.5-5.1)
[2021-01-01] MEDS ORDERED: POTASSIUM CHLORIDE 40 MEQ in SODIUM CHLORIDE 0.9% 1000ML 1,000 ML IV SCH (08:15)
[2021-01-01] MEDS ORDERED: POTASSIUM CHLORIDE CRTAB 20 MEQ TABCR PO SCH (09:00)
[2021-01-01] MEDS ORDERED: NICOTINE 21 MG/24 HR TDSY TD SCH (09:00)
[2021-01-01] MEDS: INSULIN ASPART 100 UNITS/ML 3 ML PEN SQ SCH ×3 (09:18→17:40)
[2021-01-01] MEDS: PROCHLORPERAZINE 5 MG in SYRINGE 4 ML IV PRN (09:54)
--- NOTE | 2021-01-06 06:56 | Discharge Summary ---
Date of Service January 01, 2021 Admission HPI Per Admitting Provider This is a 40-year-old female past medical history of uncontrolled type 2 diabetes mellitus, previously diagnosed gastroparesis, hyperlipidemia that presents today complaining 3 days intractable nausea vomiting. Patient is pleasant good historian. Patient tells me she gets events like this frequently, attributes this to gastroparesis. She does well at home, typically she will just try to stay hydrated and stick to a clear liquid diet with medications is resolved. However, over the past 3 days she has had this much worse. She has not been able to tolerate any liquids or food. She has had crampy abdominal pain but nothing sharp or focal her abdomen. She felt that she was getting more dehydrated presents to the emergency room for further evaluation. She was found to be in significant hyperglycemia without evidence of DKA. In addition, she had a sodium of 120, which corrects for hyperglycemia to 125. At the time my evaluation, patient tells me she is feeling little bit better, attributes this to being rehydrated. She is tolerating ice chips and feels she can have some clear liquids. Denies any further abdominal pain. Plan is to admit to a general medical bed, continue hydration with normal saline and advance diet as tolerated. Principal Diagnosis Uncontrolled DM type II, gastroparesis, vomiting, dehydration Discharge Exam Constitutional WD/WN, vitals as above (appears older than age) comfortable Neck trachea midline, no thyromegaly Respiratory normal respiratory effort, lungs clear to auscultation Cardiovascular RRR, no murmur, no edema Gastrointestinal (Abdomen) normal bowel sounds, soft, nontender, no hepatosplenomegaly Musculoskeletal no cyanosis or clubbing, extremities motor strength 5/5 Skin no rashes, warm and dry Neurologic patellar DTR's 2+ bilat, sensation intact and PERRL, EOMI, accommodation nl, no face palsy, no dysarthria Psychiatric A+Ox3, euthymic affect Discharge Data Allergies Allergy/AdvReac Type Severity Reaction Status Date / Time Penicillins Allergy Severe ANAPHYLAXIS Verified 12/31/20 09:35 clindamycin Allergy Intermediate RASH Verified 12/31/20 09:35 metoclopramide [From Reglan] Allergy Drowsy Verified 12/31/20 09:35 Consultations 12/31/20 11:37 ED Decision to Admit Stat Diabetes Follow up Diabetes Follow-up Needed for HgbA1c >9% Hospital Course (1) Intractable nausea and vomiting: Consistent with patient's previously stated history of gastroparesis Hydrate with IV normal saline Start with clear liquid diet - tolerating, wants to eat more, tolerated dinner and wants to go home this is ongoing issue, she has anti-emetics at home, she wishes to go home and manage at home (2) Hyponatremia: due to Hypovolemia, also some degree of pseudohyponatremia with hyperglycemia on admission Hydration with normal saline as noted above Na trending up to 131 low K+ IV replacement given, cannot tolerate PO with her nausea (3) Type 2 diabetes mellitus with hyperglycemia: Patient typically takes Lantus 60 units nightly along with sliding scale for meals appreciate international 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 patient does not always take Lantus, nervous because she does not eat great that she will get hypoglycemic encouraged her to take the Lantus as prescribed for meals, will take 1/2 dose prior to meal and depending on how much she eats, take 1/2 dose after she eats gave her script for new meter, test strips and lancets follow up with endocrinology (4) Dyslipidemia: Total Time Total Time Spent Total Time Spent (In Minutes): 32 Total Time Includes: Examination of the Patient, Discharge Planning and Medication Reconciliation Discharge Plan Discharge Items Patient Disposition: Home - Self-Care Reason For Visit: DEHYDRATION,GASTROPARESIS Discharge Diagnosis: nausea and vomiting gastroparesis dehydration low potassium and low sodium Condition on Discharge: Good Goals: stay well hydrated and well nourished take potassium supplements Activity: Resume your previous activity Non-emergency contact: Primary Care Provider Call non-emergency contact if: you have any medication questions and your symptoms worsen Follow-up/Referrals: Aram Elise MD [Primary Care Provider] - 01/07/21 10:10 am (one week) Diet: Carb Count or DM1 Addtl Attending Provider Instructions: Medications: continue with Lantus 60 units recommend splitting Novolog, give 1/2 dose prior to meal and 1/2 dose after meal you need to take regularly, I know you have been holding due to concerns for lows but your Hemoglobin A1c is 11.4%, too high I will send a script for a meter and test strips to pharmacy Pending Studies at Discharge: No Stand-Alone Forms: My [employer], Smoking Cessation Medications and DC Order Prescriptions: New (DME) blood-glucose meter [OneTouch Verio Meter] Misc See Rx Instructions .ROUTE .MEDSUPPLY Qty: 1 RF: 0 (DME) OneTouch Verio test strips Strip See Rx Instructions .ROUTE .MEDSUPPLY Qty: 100 RF: 3 (DME) lancets [OneTouch Delica Lancets] 33 gauge misc See Rx Instructions .ROUTE .MEDSUPPLY Qty: 100 RF: 3 Continued Lantus Solostar U-100 Insulin 100 unit/mL (3 mL) insulin pen 60 unit SQ HS 30 Days Qty: 30 RF: 1 (DME) pen needle, diabetic [BD Ultra-Fine [place] Pen Needle] 32 gauge x 5/32" needle See Rx Instructions miscellaneous .MEDSUPPLY Qty: 200 RF: 3 ondansetron HCl [Zofran] 8 mg tablet 8 mg PO DIRECTED PRN (Reason: Nausea) RF: 0 dronabinol [Marinol] 10 mg capsule 10 mg PO DIRECTED PRN (Reason: Nausea And Vomiting) RF: 0 melatonin 10 mg capsule 10 mg PO HS PRN (Reason: Sleep) RF: 0 insulin aspart U-100 [Novolog Flexpen U-100 Insulin] 100 unit/mL (3 mL) insulin pen See Rx Instructions SQ .COMPLEX 30 Days Qty: 15 RF: 3 oxycodone 5 mg/5 mL Solution 5 mg PO Q8 MDD NO MORE THAN 15 ML/DAY. PRN (Reason: Pain) RF: 0 baclofen 10 mg Tablet 10 mg PO QID PRN (Reason: Muscle Spasm) RF: 0 mirtazapine 15 mg Tablet 15 mg PO HS RF: 0 hydroxyzine HCl 10 mg Tablet 20 mg PO TID PRN (Reason: Sleep) RF: 0 sertraline 50 mg Tablet 75 mg PO QPM RF: 0 buprenorphine 10 mcg/hour Patch Weekly 1 patch TRANSDERMAL Q7D RF: 0 fluconazole [Diflucan] 150 mg tablet 150 mg PO Q3D PRN (Reason: Yeast infection) RF: 0 Discharge Orders: Discharge Order (Routine); Ordered 01/01/21 Ordered By: Vinnie Velasquez Admission Data Admit Date/Time: 12/31/20 12:18 Attending Provider: Vinnie Velasquez Admit Provider: Anil Peguero Primary Care Provider: Aram Elise Other Providers: Anil Peguero Other Interventions: Discharge Summary Assessment (RN) Last Done: 01/01/21 17:12 Coding Level of Care Code D/C Day Management >30 mins Diagnoses Intractable nausea and vomiting R11.2 Hyponatremia E87.1 Type 2 diabetes mellitus with hyperglycemia E11.65; Z79.4 Diabetes mellitus mcc insulin use: with mcc use Dyslipidemia E78.5
== END 2021-01-01 18:01 | disposition home or self-care (01) | DRG 74 ==
LOC: ED 08:57 → SUATTDRO 12:18 → 2W 12:18